=== PATIENT | male | born 1960 | race Caucasian/White ===

== ENCOUNTER → 2018-01-29 14:15 | Outpatient (CLI) | payer OTHER, SELFPAY ==
[2018-01-29 15:52] LABS: Anion Gap 5 (5-15); BUN 16 mg/dL (7-18); BUN/Creat Ratio 13.8 RATIO (10-20); Calcium,Total 8.9 mg/dL (8.5-10.1); Chloride 104 mmol/L (98-107); Creatinine, Serum 1.16 mg/dL (0.70-1.30); EST Glomerular Filtration Rate 69 mL/min (>60); Est Glom Filt Rate - Afr Amer 83 mL/min (>60); Glucose 81 mg/dL (74-106); Potassium 3.9 mmol/L (3.5-5.1); Sodium Level 140 mmol/L (136-145); T4 Total, Thyroxin 6.9 ug/dL (4.5-12.1); Thyroid Stim Hormone (TSH) 1.53 uIU/mL (0.358-3.74)
== END ==
PROVIDERS: Family Provider Family Medicine; PCP Family Medicine; Visit Provider Internal Medicine Cardiovascular Disease
DX: I10 Essential (primary) hypertension (principal); I25.10 Atherosclerotic heart disease of native coronary artery without angina pectoris
CPT/HCPCS: 36415; 80048; 84436; 84443

== ENCOUNTER → 2018-07-07 14:24 | Outpatient (CLI) | payer OTHER, SELFPAY ==
[2018-07-07 13:21] VITALS: BMI 35.8
[2018-07-07 14:57] LABS: Bacteria 0 SEEN /hpf (None Seen); Mucous, Urine 0 SEEN /hpf (<or=2+); Red Blood Cells-Urine 0 SEEN /hpf (0-5); Squamous Epithelial Cells - UA 0 SEEN /hpf (0-5)
[2018-07-07 15:29] LABS: Color, Urine Yellow (Yellow); Glucose, Dipstick Normal (Normal); Ketone-Dipstick Negative (Negative); Leukocyte Esterase-Dipstick Negative /ul (Negative); Nitrite-Dipstick Negative (Negative); Occult Blood-Urine Negative /ul (Negative); Protein-Dipstick Negative (Negative); Urine Bilirubin Dipstick Negative (Negative); Urine Clarity Clear (Clear); Urine Urobilinogen Normal (Normal)
[2018-07-07 16:13] LABS: White Blood Cells 0-5 SEEN /hpf (0-5)
== END ==
PROVIDERS: Family Provider Family Medicine; PCP Family Medicine; Referring Provider Physician Assistant Surgical; Visit Provider Physician Assistant Surgical
DX: R10.9 Unspecified abdominal pain (principal)
CPT/HCPCS: 81001; 87086; 87088

== ENCOUNTER → 2018-07-13 14:13 | Outpatient (CLI) | payer OTHER, SELFPAY ==
[2018-07-13 10:37] VITALS: BMI 35.8
[2018-07-13 14:32] LABS: Bacteria 0 SEEN /hpf (None Seen); Mucous, Urine 0 SEEN /hpf (<or=2+); Squamous Epithelial Cells - UA 0 SEEN /hpf (0-5); White Blood Cells 0 SEEN /hpf (0-5)
[2018-07-13 14:47] LABS: Color, Urine Yellow (Yellow); Glucose, Dipstick Normal (Normal); Ketone-Dipstick Negative (Negative); Leukocyte Esterase-Dipstick Negative /ul (Negative); Nitrite-Dipstick Negative (Negative); Occult Blood-Urine Negative /ul (Negative); Protein-Dipstick Negative (Negative); Specific Gravity, Urine 1.015 (1.002-1.030); Urine Bilirubin Dipstick Negative (Negative); Urine Clarity Clear (Clear); Urine Urobilinogen Normal (Normal)
[2018-07-13 14:58] LABS: Red Blood Cells-Urine 0-5 SEEN /hpf (0-5)
[2018-07-13 16:42] LABS: Chlamydia Trachomatis by PCR Negative (Negative); Neisserai gonorrhoeae by PCR Negative (Negative); Probe Check PASS; Sample Adequacy Control PASS; Specimen Processing Control PASS
== END ==
PROVIDERS: Family Provider Family Medicine; PCP Family Medicine; Referring Provider Physician Assistant Surgical; Visit Provider Physician Assistant Surgical
DX: R30.0 Dysuria (principal)
CPT/HCPCS: 81001; 87086; 87491; 87591

== ENCOUNTER → 2018-07-17 16:54 | Outpatient (CLI) | payer OTHER, SELFPAY ==
[2018-07-13 10:37] VITALS: BMI 35.8
[2018-07-17 18:25] LABS: Hemoglobin A1c 5.5 % (4.2-6.3)
[2018-07-17 18:36] LABS: ALB/GLOB Ratio 1.1 RATIO (0.9-2.4); AST(SGOT) 21 U/L (15-37); Alanine Aminotransfer ALT/SGPT 38 U/L (16-61); Alkaline Phosphatase 68 U/L (45-117); Anion Gap 7 (5-15); BUN 17 mg/dL (7-18); BUN/Creat Ratio 14.4 RATIO (10-20); Calcium,Total 8.8 mg/dL (8.5-10.1); Chloride 103 mmol/L (98-107); Creatinine, Serum 1.18 mg/dL (0.70-1.30); EST Glomerular Filtration Rate 67 mL/min (>60); Est Glom Filt Rate - Afr Amer 81 mL/min (>60); Globulin 3.5 g/dL (2.2-4.2); Glucose 102 mg/dL (74-106); Potassium 3.8 mmol/L (3.5-5.1); Protein, Total 7.5 g/dL (6.4-8.2); Sodium Level 142 mmol/L (136-145); Uric Acid 7.6 mg/dL (3.5-7.2)
--- OUTSIDE RECORDS SUMMARY | 2018-09-21 08:03 | XMS RPT_ITS ---
:1960 Author Organization [place] Support Name Relationship Address Phone MONE WANG Unavailable [address] + [place] [address] WC Unavailable [address] + [place] [address] MONE WANG Unavailable [address] + [place] [address] WC Unavailable [address] + [place] [address] MONE WANG Unavailable [address] + [place] [address] WC Unavailable [address] + [place] [address] MONE WANG Unavailable [address] + [place] [address] WC Unavailable [address] + [place] [address] MONE WANG Unavailable [address] + [place] [address] WC Unavailable [address] + [place] [address] MONE WANG Unavailable [address] + [place] [address] WC Unavailable [address] + [place] [address] MONE WANG Unavailable [address] + [place] [address] WC Unavailable [address] + [place] [address] MONE WANG Unavailable [address] + [place] [address] [facility] Unavailable [address] + [place] [address] FELIPE MONE Unavailable [address] + [place] [address] [facility] Unavailable [address] + [place] [address] FELIPE MONE Unavailable [address] + [place] [address] [facility] Unavailable [address] + [place] [address] FELIPE MONE Unavailable NA + [place], [place] [facility] Unavailable [address] + [place] [address] FELIPE MONE [place] + [place] [facility] Unavailable [address] + [place] [address] FELIPE MONE Unavailable [place] + [place], [place] [facility] Unavailable [address] + [place] [address] FELIPE NIMESH Unavailable [address] + [place] [address] [facility] Unavailable [address] + [place] [address] FELIPE MONE Unavailable NA + [place], [place] [facility] Unavailable [address] + [place] [address] Care Team Providers Name Role Phone Vladislav Momin Attending Unavailable Guanakito Wynn Referring Unavailable Vladislav Momin Attending Unavailable Vladislav Momin Referring Unavailable Guanakito Wynn Primary Care Unavailable Vladislav Momin Attending Unavailable Guanakito Wynn Referring Unavailable Vladislav Momin Attending Unavailable Vladislav Momin Referring Unavailable TiannaGuanakito carlisle Primary Care Unavailable Guanakito Wynn Attending Unavailable Guanakito Wynn Primary Care Unavailable Jerson King Attending Unavailable Guanakito Wynn Referring Unavailable Jerson King Attending Unavailable Guanakito Wynn Referring Unavailable Guanakito Wynn Primary Care Unavailable Vladislav Momin Attending Unavailable Guanakito Wynn Referring Unavailable Tianna, Guanakito Primary Care Unavailable ASSESSMENT, HEALTH RISK Attending Unavailable ASSESSMENT, HEALTH RISK Referring Unavailable Tianna, Guanakito Primary Care Unavailable Christine, [place] Attending Unavailable KATIE BRAY Referring Unavailable Tianna, Guanakito Primary Care Unavailable Christine, [place] Attending Unavailable Christine, Jerson Referring Unavailable Tianna, Guanakito Primary Care Unavailable Vladislav Momin Attending Unavailable Tianna, Guanakito Referring Unavailable Tianna, Guanakito Primary Care Unavailable Kelvin Deluna Attending Unavailable Tianna, Guanakito Referring Unavailable Tianna, Guanakito Primary Care Unavailable Guanakito Coleman Attending Unavailable Tianna, Guanakito Referring Unavailable Kelvin Deluna Attending Unavailable Tianna, Guanakito Referring Unavailable Tianna, Guanakito Primary Care Unavailable PROBLEMS PROBLEMS DATE TYPE CONDITION / CODE ATTENDING STATUS SOURCE Unknown I10 - Essential (primary) Guanakito Wynn Active [facility] 9 hypertension / Community I10(ICD-10) Hospital Repository Unknown M10.9 - Gout, unspecified Guanakito Wynn Active [place] 9 / M10.9(ICD-10) [facility] Repository Unknown E87.6 - Hypokalemia / Guanakito Wynn Active [place] 9 E87.6(ICD-10) [facility] Repository Unknown R73.01 - Impaired fasting Guanakito Wynn Active [place] 9 glucose / R73.01(ICD-10) [facility] Repository Unknown R30.0 - Dysuria / Vladislav Momin Active [place] 9 R30.0(ICD-10) [facility] Repository Unknown 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, unspecified / Community B36.9(ICD-10) Hospital Repository Unknown R10.9 - Unspecified Merrill Vladislav Active [place] 9 abdominal pain / Community R10.9(ICD-10) Hospital Repository Unknown I25.10 - Atherosclerotic Christine, [place] Active [place] 8 heart disease of eyak Community coronary artery without Hospital angina pectoris / Repository I25.10(ICD-10) Unknown E78.00 - Pure Christine, [place] Active [place] 8 hypercholesterolemia, Community unspecified / Hospital E78.00(ICD-10) Repository 08/02/201 Unknown E78.0 - Pure Christine, [place] Active [place] 8 hypercholesterolemia / Community E78.0(ICD-10) Hospital Repository PROCEDURES PROCEDURES No Procedure Records FoundRESULTS RESULTS HEMOGLOBIN A1C Collected: 07/17/2018 Status: F Source: [place] 4:56 PM [facility] [place], [place] REPOSITORY TYPE CODE TESTS RESULT OUT OF RANGE REFERENCE UNITS LAB L501.9985 4.2-6.3 % Normal HGB A1C 5.5 Performed By: #### L501.9985 #### [facility] [address] [place], [address] COMPREHENSIVE METABOLIC Collected: 07/17/2018 Status: F Source: [place]IL 4:56 PM [facility] [place] [place] REPOSITORY TYPE CODE TESTS RESULT OUT OF RANGE REFERENCE UNITS LAB L501.0100 74-106 mg/dL Normal GLU 102 Result Comment: Fasting Glucose result from 100 to 125 mg/dL suggests IMPAIRED HOMEOSTASIS per A.D.A. criteria. Please note revised GLUCOSE reference range effective 2017. LAB L501.1000 7-18 mg/dL Normal BUN 17 LAB L501.1100 0.70-1.30 mg/dL Normal CREAT,SERUM 1.18 Result Comment: The validity of the calculated GFR AND GFRAA in patients over 70 years has not been determined. Clinical correlation is essential. LAB L501.1110 >60 mL/min Normal EST GFR 67 Result Comment: Non- GFR Calc LAB L501.1115 >60 mL/min Normal EST GFR - AA 81 Result Comment: GFR Calc LAB L501.1300 10-20 RATIO Normal BUN/CRE 14.4 LAB L501.1500 6.4-8.2 g/dL T Normal PROT 7.5 LAB L501.1800 3.2-5.0 g/dL Normal ALB 4.0 LAB L501.1950 2.2-4.2 g/dL Normal GLOB 3.5 LAB L501.2000 0.9-2.4 RATIO Normal A/G 1.1 LAB L501.2200 8.5-10.1 mg/dL CA Normal 8.8 LAB L501.4100 15-37 U/L Normal AST 21 LAB L501.4305 45-117 U/L Normal ALK P 68 LAB L501.4405 16-61 U/L Normal ALT 38 LAB L501.4600 0.20-1.00 mg/dL T Normal BILI 0.40 LAB L501.5300 136-145 mmol/L NA Normal 142 LAB L501.5600 3.5-5.1 mmol/L K Normal 3.8 LAB L501.5900 98-107 mmol/L CL Normal 103 LAB L501.6100 21.0-32.0 mmol/L Normal CO2 32.0 LAB L501.6200 5-15 Normal GAP 7 Performed By: #### L500.4050, L501.1400 #### [facility] [address] [place], [address] URIC ACID Collected: 07/17/2018 Status: F Source: [place] 4:56 PM [facility] [place] [place] REPOSITORY TYPE CODE TESTS RESULT OUT OF RANGE REFERENCE UNITS LAB L501.1400 3.5-7.2 mg/dL High URIC 7.6 Result Comment: The drugs N-Acetylcysteine and Metamizole may falsely depress this assay. Performed By: #### L500.4050, L501.1400 #### [facility] [address] [place], [address] URINALYSIS, COMPLETE Collected: 07/13/2018 Status: F Source: [place] 2:31 PM [facility] [place] [place] REPOSITORY Order Comment: How was Urine Obtained? CLEAN CATCH TYPE CODE TESTS RESULT OUT OF RANGE REFERENCE UNITS LAB L400.3000 Yellow COLOR Normal Yellow LAB L400.3050 Clear Normal CLARITY Clear LAB L400.3200 Normal mg/dl Normal GLUCOSE, UR Normal LAB L400.3300 Negative mg/dL Normal BILIRUBIN URINE Negative LAB L400.3400 Negative mg/dl Normal KETONE UR Negative LAB L400.3465 1.002-1.030 Normal SP.GR. DIPSTX 1.015 LAB L400.3550 5.0 - 8.0 pH UR Normal 6.0 LAB L400.3600 Negative mg/dl PROT Normal DIPSTX Negative LAB L400.3700 Normal mg/dl Normal UROBILI Normal LAB L400.3750 Negative Normal NITRITE UR Negative LAB L400.3780 Negative /ul Normal OCCULT BLOOD-UR Negative LAB L400.3800 Negative /ul LEUK Normal ESTERASE Negative LAB L400.4050 0-5 /hpf WBC 0 Normal SEEN LAB L400.4100 0-5 /hpf Normal RBC-UA 0-5 SEEN LAB L400.4150 0-5 /hpf SQUAM 0 Normal EPI SEEN LAB L400.4300 None Seen /hpf 0 Normal BACTERIA SEEN LAB L400.4350 <or=2+ /hpf 0 Normal MUCUS, URINE SEEN Performed By: #### L400.0001 #### [facility] [address] [place], [address] CT/NG [facility] BY PCR Collected: 07/13/2018 Status: F Source: [place] 2:31 PM [facility] [place] [place] REPOSITORY TYPE CODE TESTS RESULT OUT OF RANGE REFERENCE UNITS LAB L8200.2100 Negative Normal Chlam Negative Trac PCR LAB L8200.2200 Negative Normal NG by Negative PCR Performed By: #### L8200.2000 #### [facility] [address] [place], [address] Observed: 07/13/2018 Status: F Source: [place] CULTURE, URINE 2:31 PM [facility] [place] [place] REPOSITORY CTNG URINE Urine Culture Culture exhibits no growth. Performed By: #### M100.0650 #### [facility] [address] [place], [address] URGENT CARE VISIT Observed: 07/13/2018 Status: F Source: [place] REPORT 12:12 PM [facility] [place] [place] REPOSITORY [facility] [address] [place] [address] [address] [place] [address] OFFICE VISIT Date of Service: 07/13/18 MR#: [id number] Acct: [id number] Name: SUDHA WANG Rep #: [id number] : 1960 Provider: Vladislav MEYER Age/Sex: 58/M Location: [facility] [place] Status: Signed Intake Vital Signs07/13/18 Body Mass Index (BMI) 35.8 07/13/18 Height 6 ft 5 in Intake Visit Reasons: Urinary tract infection Allergies Penicillins Allergy (Verified 07/13/18 10:37) Other Medications Citalopram [Celexa] 40 mg PO DAILY 08/11/15 [History Confirmed 07/13/18] Pantoprazole Sodium [Protonix] 40 mg PO BID 08/11/15 [History Confirmed 07/13/18] lorazepam 1 mg tablet 1 mg PO TID PRN 07/31/17 [History Confirmed 07/13/18] pravastatin 40 mg tablet 40 mg PO QHS 07/31/17 [History Confirmed 07/13/18] aspirin 325 mg tablet 325 mg PO QDAY 01/29/18 [History Confirmed 07/13/18] lisinopril 20 mg-hydrochlorothiazide 25 mg tablet 1 tab PO QDAY 01/29/18 [History Confirmed 07/13/18] potassium chloride ER 10 mEq tablet,extended release 10 meq PO QDAY #90 tab 01/29/18 [Rx Confirmed 07/13/18] clotrimazole-betamethasone 1 %-0.05 % topical cream 1 applic TOPICAL BID 14 Days #15 g 07/13/18 [Rx Confirmed 07/13/18] [facility] Medical History BMI 35.0-35.9,adult (Chronic) Hyperlipemia (Chronic) Hyperlipidemia (Chronic) Hypertension (Chronic) 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 Patient was evaluated here approximately 1 week ago with similar type symptoms and started on nystatin powder for a fungal infection however he states that this has not helped with his symptoms of pain and actually states that the powder caused pain when applied to the foreskin. He denies any hematuria, increased urinary frequency or urgency. He has had no fever, chills, sweats. No nausea, vomiting, diarrhea. No other associated symptoms or alleviating/aggravating factors. ROS Const Constitutional: No body ache, chills or fever(s) Resp Respiratory: No shortness of breath Cardio Cardiology: No lightheadedness, palpitations or irregular heart rhythm Gastro GI: No abdominal pain Genitourinary Male: Positive for burning urination and painful urination; no difficulty urinating, urinary incontinence, urinary hesitancy, urinary retention, blood in urine, urinary frequency, genital itching or penile discharge Neuro Neurology: No confusion or behavioral changes Psych Psychiatric: No confusion, No behavioral changes Exam Const General: cooperative, healthy appearing Resp Effort AND Inspection: normal respiratory effort Auscultation: Bilateral: Clear to Auscultation Cardio Rate: regular rate Rhythm: regular rhythm GI Auscultation: normal bowel sounds General: No CVA tenderness, bimanual renal exam normal bilaterally Penis: erythematous (minimal erythema of the foreskin with no drainage or white smegma) Meatus: meatus normal Scrotum: scrotum normal Testes: normal Other: No erythema or drainage from the tip of the penis. Psych Appearance: grossly normal Mental Status: mental status grossly normal Results [facility] Office Urine Color YELLOW Last Edit by Latha Trejo on 07/13/18 10:47 Office Urine Clarity Clear Last Edit by Latha Trejo on 07/13/18 10:47 Assessment AND Plan 1. Fungal dermatitis B36.9 Plan Lotrisone cream as prescribed today. Patient advised to apply Lotrisone cream twice daily only after cleaning and drying the area well. Patient advised to follow-up with his PCP and dermatology particularly if his symptoms do not improve in 7-10 days or sooner should they worsen. Patient has been advised of potential red flags and when appropriate to report to the ED. Patient verbalized understanding and agreement with all the above. Medications New: Discontinued: nystatin Discontinued Reason: Pt no longer 1 applic Topical TID 14 days 30 grams 0RF taking Plan Detail Other Orders Orders: Coding Level of Care Code Off vis,est,level 3 Diagnoses Fungal dermatitis B36.9 07/13/18 1212 <Electronically signed by Vladislav MEYER> Date Vladislav MEYER Cosigner Signature: Date (if applicable) CC: URGENT CARE VISIT Observed: 07/07/2018 Status: F Source: [place] REPORT 3:09 PM [facility] [place] [place] REPOSITORY [facility] [address] [place] [address] [address] [place] [address] OFFICE VISIT Date of Service: 07/07/18 MR#: [id number] Acct: [id number] Name: SUDHA WANG Rep #: [id number] : 1960 Provider: Vladislav MEYER Age/Sex: 58/M Location: [facility] [place] Status: Signed Intake Vital Signs07/07/18 Body Mass Index (BMI) 35.8 Intake Visit Reasons: KIDNEY INFECTION Chief Complaint: SIDE PAIN Clinical Educator Required: Yes Accompanied by: SELF Is patient in pain?: No Allergies Penicillins Allergy (Verified 07/07/18 13:20) Other Medications Citalopram [Celexa] 40 mg PO DAILY 08/11/15 [History Confirmed 07/07/18] Pantoprazole Sodium [Protonix] 40 mg PO BID 08/11/15 [History Confirmed 07/07/18] lorazepam 1 mg tablet 1 mg PO TID PRN 07/31/17 [History Confirmed 07/07/18] pravastatin 40 mg tablet 40 mg PO QHS 07/31/17 [History Confirmed 07/07/18] aspirin 325 mg tablet 325 mg PO QDAY 01/29/18 [History Confirmed 07/07/18] lisinopril 20 mg-hydrochlorothiazide 25 mg tablet 1 tab PO QDAY 01/29/18 [History Confirmed 07/07/18] potassium chloride ER 10 mEq tablet,extended release 10 meq PO QDAY #90 tab 01/29/18 [Rx Confirmed 07/07/18] nystatin 100,000 unit/gram topical powder 1 applic TOPICAL TID 14 Days #30 g 07/07/18 [Rx Confirmed 07/07/18] [facility] Medical History BMI 35.0-35.9,adult (Chronic) Hyperlipemia (Chronic) Hyperlipidemia (Chronic) Hypertension (Chronic) 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 Patient states that approximate 1 week ago he started to have penile discomfort and burning when he urinated. He was seen by a telemedicine provider and started on fluconazole 100 mg daily for 2 weeks however he discontinued taking this medication due to making him feel ill. Patient states that the redness and irritation to the penis has since resolved however over the past several days he has had a return of the dysuria. He does report being uncircumcised and was on vacation for a week without showering. He has not had any increased urinary urgency or frequency and has not taken any new medications other than fluconazole. He denies any genital itching or penile discharge. He reports being in a monogamous relationship. He denies fever, chills, sweats. No nausea, vomiting, diarrhea. No other associated symptoms or alleviating/aggravating factors. ROS Const Constitutional: No body ache, chills or fever(s) Resp Respiratory: No shortness of breath Cardio Cardiology: No lightheadedness, palpitations or irregular heart rhythm Gastro GI: No abdominal pain Genitourinary Male: Positive for burning urination and painful urination; no difficulty urinating, urinary incontinence, urinary hesitancy, urinary retention, blood in urine, urinary frequency, genital itching or penile discharge Neuro Neurology: No confusion or behavioral changes Psych Psychiatric: No confusion, No behavioral changes Exam Const General: cooperative, healthy appearing Resp Effort AND Inspection: normal respiratory effort Auscultation: Bilateral: Clear to Auscultation Cardio Rate: regular rate Rhythm: regular rhythm GI Auscultation: normal bowel sounds General: No CVA tenderness, bimanual renal exam normal bilaterally External: normal external exam Psych Appearance: grossly normal Mental Status: mental status grossly normal Results [facility] Office Urine Color Yellow Last Edit by Aletha Herr on 07/07/18 13:25 Assessment AND Plan Problems 1. Fungal dermatitis B36.9 Status Acute Plan UA today shows no signs of acute UTI or kidney issues and with patient's described improvement with fluconazole prior to him discontinuing we will start him today on nystatin powder. The urine sample will be sent for further evaluation including GC and chlamydia. Encouraged to get plenty of rest, drink lots of clear liquids, and use Tylenol or Ibuprofen (unless contraindicated) for fever and comfort. Patient also educated on other symptomatic management techniques. To be seen in 7-10 days if no improvement; sooner if worsening of symptoms. Patient advised of potential red flags and when appropriate to report to the ED. Patient verbalized understanding and agreement with all the above. Orders Orders: Medications New: Discontinued: atenolol Discontinued Reason: Pt no lo50 mg PO QDAY nger taking azithromycin Discontinued Reason: Pt ntake 500 mg today (day 1), then 250 mg forJ01.90 o longer taking 4 days (days 2- 5) PO 6 tabs 0RF Coding Level of Care Code Off vis,est,level 3 Diagnoses Fungal dermatitis B36.9 07/07/18 1509 <Electronically signed by Vladislav MEYER> Date Vladislav MEYER Cosigner Signature: Date (if applicable) CC: URINALYSIS, COMPLETE Collected: 07/07/2018 Status: F Source: [place] 2:55 PM [facility] [place] [place] REPOSITORY Order Comment: How was Urine Obtained? CLEAN CATCH TYPE CODE TESTS RESULT OUT OF RANGE REFERENCE UNITS LAB L400.3000 Yellow COLOR Normal Yellow LAB L400.3050 Clear Normal CLARITY Clear LAB L400.3200 Normal mg/dl Normal GLUCOSE, UR Normal LAB L400.3300 Negative mg/dL Normal BILIRUBIN URINE Negative LAB L400.3400 Negative mg/dl Normal KETONE UR Negative LAB L400.3465 1.002-1.030 Normal SP.GR. DIPSTX 1.010 LAB L400.3550 5.0 - 8.0 pH UR Normal 6.0 LAB L400.3600 Negative mg/dl PROT Normal DIPSTX Negative LAB L400.3700 Normal mg/dl Normal UROBILI Normal LAB L400.3750 Negative Normal NITRITE UR Negative LAB L400.3780 Negative /ul Normal OCCULT BLOOD-UR Negative LAB L400.3800 Negative /ul LEUK Normal ESTERASE Negative LAB L400.4050 0-5 /hpf WBC Normal 0-5 SEEN LAB L400.4100 0-5 /hpf 0 Normal RBC-UA SEEN LAB L400.4150 0-5 /hpf SQUAM 0 Normal EPI SEEN LAB L400.4300 None Seen /hpf 0 Normal BACTERIA SEEN LAB L400.4350 <or=2+ /hpf 0 Normal MUCUS, URINE SEEN Performed By: #### L400.0001 #### [facility] [address] [place], [place], [address] Observed: 07/07/2018 Status: F Source: [place] CULTURE, URINE 2:55 PM [facility] [place] [place] REPOSITORY Urine Culture Below infection level. ORGANISM 1: Mixed Gram Positive Organisms [place] Count <1000 Performed By: #### M100.0650 #### [facility] [address] [place], [place], [address] URGENT CARE VISIT Observed: 03/25/2018 Status: F Source: [place] REPORT 10:33 AM [facility] [place] [place] REPOSITORY [facility] [address] [place] [address] [address] [place] [address] OFFICE VISIT Date of Service: 03/19/18 MR#: [id number] Acct: [id number] Name: LOBO WANGN Bong Rep #: [id number] : 1960 Provider: Kelvin MEYER Age/Sex: 58/M Location: [facility] [place] Status: Signed with Addenda ADDENDUM by Kelvin MEYER on 03/25/18 at 1033 Addendum entered and electronically signed by MITCH Malone 03/25/18 10:33: discussed pt's symptoms over the phone at his request; symptoms have stabilized but persist, therefore Valacyclovir extended and gabapentin started (called in to [facility]) and reminded pt he needs to f/u w/ opthal. as he not yet made an appointment. Pt states acknowledging understanding al the above. HPI Details: SUDHA WANG, is a 58 M who presents to the office today for Assessment AND Plan Problems 1. Cellulitis of nasal tip J34.0 2. Shingles B02.9 Plan - MITCH Malone Due to patient concerns, discontinue doxycycline and start clindamycin as prescribed today. Valacyclovir and prednisone as prescribed today. Recommend follow-up with ophthalmology for first available due to left eye discomfort. Recommend follow-up with PCP in 5-7 days for reevaluation and consideration of additional medication for pain control if still present at that time. Patient states acknowledging understanding all the above. This note was generated with [employer] software. It may contain incorrect words, spelling, and punctuation that were not noted in checking the note before signing. 03/25/18 1033 <Electronically signed by Kelvin MEYER> Date Kelvin Deluna cc: * Signed Intake Vital Signs03/19/18 Height 6 ft 5 in 03/19/18 Weight: 285 lb 03/19/18 Body Mass Index (BMI) 33.7 03/19/18 Blood Pressure 126/82 Intake Visit Reasons: RECHECK NOSE Chief Complaint: Nasal cellulitis recheck Clinical Educator Required: No Accompanied by: self Is patient in pain?: Yes Allergies Penicillins Allergy (Verified 03/19/18 10:45) Other Medications Citalopram [Celexa] 40 mg PO DAILY 08/11/15 [History Confirmed 03/19/18] Pantoprazole Sodium [Protonix] 40 mg PO BID 08/11/15 [History Confirmed 03/19/18] lorazepam 1 mg tablet 1 mg PO TID PRN 07/31/17 [History Confirmed 03/19/18] pravastatin 40 mg tablet 40 mg PO QHS 07/31/17 [History Confirmed 03/19/18] aspirin 325 mg tablet 325 mg PO QDAY 01/29/18 [History Confirmed 03/19/18] atenolol 50 mg tablet 50 mg PO QDAY 01/29/18 [History Confirmed 03/19/18] lisinopril 20 mg-hydrochlorothiazide 25 mg tablet 1 tab PO QDAY 01/29/18 [History Confirmed 03/19/18] potassium chloride ER 10 mEq tablet,extended release 10 meq PO QDAY #90 tab 01/29/18 [Rx Confirmed 03/19/18] azithromycin 250 mg tablet See Label Instructions PO .COMPLEX #6 tab 02/27/18 [Rx Confirmed 03/19/18] doxycycline monohydrate 100 mg capsule 100 mg PO BID #20 cap 03/16/18 [Rx Confirmed 03/19/18] clindamycin HCl 300 mg capsule 300 mg PO TID #30 cap 03/19/18 [Rx Confirmed 03/19/18] prednisone 50 mg tablet 50 mg PO DAILY #5 tab 03/19/18 [Rx Confirmed 03/19/18] valacyclovir 500 mg tablet 500 mg PO BID #14 tab 03/19/18 [Rx Confirmed 03/19/18] [facility] Medical History BMI 35.0-35.9,adult (Chronic) Hyperlipemia (Chronic) Hyperlipidemia (Chronic) Hypertension (Chronic) Atherosclerotic heart disease of [place] coronary artery without angina pectoris (Chronic) Obstructive sleep apnea (Chronic) Surgical History History of left heart catheterization (Chronic) Stented coronary artery (Chronic) Family History Mother CAD (coronary artery disease) Sister CAD (coronary artery disease) Brother Hypertension Sister Hypertension Social History Smoking Status: Never smoker alcohol intake: never caffeine: Yes Type: carbonated beverages HPI HPI Chief Complaint: Nasal cellulitis recheck Details: SUDHA WANG, is a 58 M who presents to the office today for recheck nasal cellulitis. Patient notes progressively worsening rash having developed to his left scalp left forehead and left side of the nasal bridge since his evaluation at the [facility] on March 16, 2018. He also notes left sided scalp headache and mild aching left eye discomfort. He notes no visual acuity changes. Patient is concerned he may have an allergic reaction to the doxycycline as prescribed. He does note having chickenpox as a child. He does not complaints of fever, chills, sweats. He Notes No Other Associated Symptoms and No Other Alleviating or Aggravating Factors. ROS Const Constitutional: No other (ROS negative 10 other than as noted above) Exam Const General: cooperative, healthy appearing, no acute distress Nutritional Appearance: average body habitus Orientation: alert, awake, oriented x3 HENMT Head: normal to inspection Ears: hearing grossly normal bilaterally, external ears normal, TM's normal bilaterally, EAC's normal Nose: external nose normal, nares normal, septum normal, no nasal discharge Face and sinus: normal facial exam, face symmetric Mouth: oral mucosae normal, lip normal, oropharynx normal, tongue normal Teeth and gingiva: gingiva normal, dentition normal Throat: posterior oropharynx normal, uvula midline, tonsils normal, no postnasal drainage Eyes General: appearance normal, both eyes and all related structures Neck Neck: normal visual inspection, full ROM, no lymphadenopathy, no meningeal signs, supple Neck mass: No Thyroid: thyroid normal Lymphatic: no lymphadenopathy noted Chest Chest palpation AND inspection: normal inspection of the chest Resp Effort AND Inspection: normal respiratory effort, able to speak in complete sentences, symmetric chest movement, no cough Cardio Rate: regular rate Pulses: radial pulses present GI Inspection: normal to inspection Skin Lesions: lesion noted (erythematous based pinpoint open lesion at tip of nose 1cm diameter), other (See other below) Rashes: rashes noted (Fine erythematous base scaling rash to chin; patient notes as chronic) Other: Erythematous based vesicular rash in clustered formations to left temporal scalp left forehead and left side of nasal bridge. Neuro General: alert, awake, oriented x3, gait normal Cognition: normal cognition Speech: speech normal Gait: normal gait Motor: muscle tone normal throughout Sensory Exam: no sensory deficits noted Psych Appearance: grossly normal Mental Status: mental status grossly normal Mood: congruent mood Affect: normal affect Speech and Movement: speech and movement normal Attitude: cooperative Thought Process: normal Thought Content: normal Judgment: judgment good Assessment AND Plan Problems 1. Cellulitis of nasal tip J34.0 2. Shingles B02.9 Plan Due to patient concerns, discontinue doxycycline and start clindamycin as prescribed today. Valacyclovir and prednisone as prescribed today. Recommend follow-up with ophthalmology for first available due to left eye discomfort. Recommend follow-up with PCP in 5-7 days for reevaluation and consideration of additional medication for pain control if still present at that time. Patient states acknowledging understanding all the above. This note was generated with UpDown dictation software. It may contain incorrect words, spelling, and punctuation that were not noted in checking the note before signing. Coding Level of Care Code Off vis,est,level 3 Diagnoses Cellulitis of nasal tip J34.0 [place]ingld[place] B02.9 03/19/18 1230 <Electronically signed by Kelvin MEYER> Date Kelvin MEYER Cosigner Signature: Date (if applicable) CC: URGENT CARE VISIT Observed: 03/18/2018 Status: F Source: KAYLI REPORT 1:43 PM [facility] [place] [place] REPOSITORY [facility] [address] [place] [address] OFFICE VISIT Date of Service: 03/18/18 MR#: [id number] Acct: [id number] Name: FELIPESUDHA G Rep #: [id number] : 1960 Provider: MITCH Coleman Age/Sex: 58/M Location: [facility] [place] Status: Signed Intake Vital Signs03/18/18 Body Mass Index (BMI) 33.7 03/18/18 Blood Pressure 134/84 03/18/18 Height 6 ft 5 in Intake Visit Reasons: Cellulitis Chief Complaint: Nasal cellulitis recheck Allergies Penicillins Allergy (Verified 03/18/18 12:53) Other Medications Citalopram [Celexa] 40 mg PO DAILY 08/11/15 [History Confirmed 03/18/18] Pantoprazole Sodium [Protonix] 40 mg PO BID 08/11/15 [History Confirmed 03/18/18] lorazepam 1 mg tablet 1 mg PO TID PRN 07/31/17 [History Confirmed 03/18/18] pravastatin 40 mg tablet 40 mg PO QHS 07/31/17 [History Confirmed 03/18/18] aspirin 325 mg tablet 325 mg PO QDAY 01/29/18 [History Confirmed 03/18/18] atenolol 50 mg tablet 50 mg PO QDAY 01/29/18 [History Confirmed 03/18/18] lisinopril 20 mg-hydrochlorothiazide 25 mg tablet 1 tab PO QDAY 01/29/18 [History Confirmed 03/18/18] potassium chloride ER 10 mEq tablet,extended release 10 meq PO QDAY #90 tab 01/29/18 [Rx Confirmed 03/18/18] azithromycin 250 mg tablet See Label Instructions PO .COMPLEX #6 tab 02/27/18 [Rx Confirmed 03/18/18] doxycycline monohydrate 100 mg capsule 100 mg PO BID #20 cap 03/16/18 [Rx Confirmed 03/18/18] [facility] Medical History BMI 35.0-35.9,adult (Chronic) Hyperlipemia (Chronic) Hyperlipidemia (Chronic) Hypertension (Chronic) Atherosclerotic heart disease of [place] coronary artery without angina pectoris (Chronic) Obstructive sleep apnea (Chronic) Surgical History History of left heart catheterization (Chronic) Stented coronary artery (Chronic) Family History Mother CAD (coronary artery disease) Sister CAD (coronary artery disease) Brother Hypertension Sister Hypertension Social History Smoking Status: Never smoker alcohol intake: never caffeine: Yes Type: carbonated beverages HPI HPI Chief Complaint: Nasal cellulitis recheck Details: SUDHA WANG, is a 58 M who presents to the office today for a recheck of his nasal cellulitis. The patient is on day 3 of 10 of doxycycline. He is taking the medicine as prescribed. He states the erythema is resolving, but his nose remains painful. He complains of some itching on the face as well since beginning the doxycycline. He reports one episode of fever and chills since, after beginning the doxycycline, which has since resolved. ROS Const Constitutional: No chills or fever(s) Eyes Eyes: No change in vision ENT ENT: No ear pain, sore throat, nasal congestion or nasal discharge Resp Respiratory: No cough, chest congestion, shortness of breath or wheezing Cardio Cardiology: No chest pain at rest or chest pain with exertion Gastro GI: No abdominal pain, diarrhea, vomiting or nausea/dyspepsia Genitourinary Male: No urinary frequency, urinary urgency or difficulty urinating Musc Musculoskeletal: No back pain or abnormal walking Skin Skin: Positive for itching and redness (Improved since beginning the antibiotic) Neuro Neurology: No confusion, abnormal walking or abnormal speech Psych Psychiatric: No confusion Aller/Imm Allergy/Immunologic: Positive for itchy eyes; no wheezing Exam Const General: healthy appearing, no acute distress Orientation: oriented x3, oriented to person, oriented to place, oriented to time [facility] Head: normocephalic Ears: external ears normal, TM's normal bilaterally, EAC's normal Eyes General: appearance normal, both eyes and all related structures Conjunctivae: conjunctivae normal Sclera: sclerae normal Pupils: PERRL Neck Neck: no lymphadenopathy Thyroid: thyroid normal Chest Chest palpation AND inspection: normal inspection of the chest Resp Effort AND Inspection: normal respiratory effort, no cough, no respiratory distress Auscultation: Bilateral: Clear to Auscultation Cardio Rate: regular rate Rhythm: regular rhythm GI Inspection: normal to inspection Auscultation: normal bowel sounds Palpation: no hepatosplenomegaly, no splenomegaly, no masses Skin General: no pallor Rashes: no rashes Nails: no clubbing Other: Scabbed punctum of the nasal cartilage with mild surrounding erythema. There is no drainage or swelling. Patient has several small blotches on the left nasal bone and left forehead. Neuro General: oriented x3, gait normal Extrem General: normal to inspection, no pedal edema, no calf tenderness, normal gait, no edema, no cyanosis, no clubbing, no calf tenderness bilaterally, no pedal edema Psych Mood: congruent mood Affect: normal affect Speech and Movement: speech and movement normal Assessment AND Plan 1. Cellulitis of nasal tip J34.0 Plan The patient was instructed to continue and complete the doxycycline as prescribed. He was reassured that his cellulitis appears to be resolving, and in the next several days he should notice market improvement. He was instructed that he can return to the clinic any time and/or follow-up with his primary care physician if needed. Coding Level of Care Code Off vis,est,level 3 Diagnoses Cellulitis of nasal tip J34.0 03/18/18 1343 <Electronically signed by Guanakito MEYER> Date Guanakito MEYER Cosigner Signature: Date (if applicable) CC: URGENT CARE VISIT Observed: 03/16/2018 Status: F Source: KAYLI REPORT 1:35 PM [facility] [place] [place] REPOSITORY [facility] [address] [place] [address] OFFICE VISIT Date of Service: 03/16/18 MR#: [id number] Acct: [id number] Name: SUDHA WANG Rep #: [id number] : 1960 Provider: Kelvin MEYER Age/Sex: 58/M Location: [facility] [place] Status: Signed Intake Vital Signs03/16/18 Height 6 ft 5 in Intake Visit Reasons: NAUSEA, TIRED, HEAD HURTS Chief Complaint: Infection on nose? Allergies Penicillins Allergy (Verified 03/16/18 09:16) Other Medications Citalopram [Celexa] 40 mg PO DAILY 08/11/15 [History Confirmed 03/16/18] Pantoprazole Sodium [Protonix] 40 mg PO BID 08/11/15 [History Confirmed 03/16/18] lorazepam 1 mg tablet 1 mg PO TID PRN 07/31/17 [History Confirmed 03/16/18] pravastatin 40 mg tablet 40 mg PO QHS 07/31/17 [History Confirmed 03/16/18] aspirin 325 mg tablet 325 mg PO QDAY 01/29/18 [History Confirmed 03/16/18] atenolol 50 mg tablet 50 mg PO QDAY 01/29/18 [History Confirmed 03/16/18] lisinopril 20 mg-hydrochlorothiazide 25 mg tablet 1 tab PO QDAY 01/29/18 [History Confirmed 03/16/18] potassium chloride ER 10 mEq tablet,extended release 10 meq PO QDAY #90 tab 01/29/18 [Rx Confirmed 03/16/18] azithromycin 250 mg tablet See Label Instructions PO .COMPLEX #6 tab 02/27/18 [Rx Confirmed 03/16/18] doxycycline monohydrate 100 mg capsule 100 mg PO BID #20 cap 03/16/18 [Rx Confirmed 03/16/18] [facility] Medical History BMI 35.0-35.9,adult (Chronic) Hyperlipemia (Chronic) Hyperlipidemia (Chronic) Hypertension (Chronic) Atherosclerotic heart disease of [place] coronary artery without angina pectoris (Chronic) Obstructive sleep apnea (Chronic) Surgical History History of left heart catheterization (Chronic) Stented coronary artery (Chronic) Family History Mother CAD (coronary artery disease) Sister CAD (coronary artery disease) Brother Hypertension Sister Hypertension Social History Smoking Status: Never smoker alcohol intake: never caffeine: Yes Type: carbonated beverages HPI HPI Chief Complaint: Infection on nose? Details: SUDHA WANG, is a 58 M who presents to the office today for initial evaluation approximately 3 day history of progressively worsening erythema, swelling, tenderness to tip of the nose after manually opening a white comedone to the same region the patient so describes. He notes since then the pain has progressively worsened with localized warmth and tenderness the same. He also notes having an irritated left eye without any complaints of discharge or drainage or visual acuity changes. No [id number] products tried to assist with symptomatic relief. He notes no other associated symptoms no other alleviating or aggravating factors. ROS Const Constitutional: No other (ROS negative 10 other than as noted above) Exam Const General: cooperative, healthy appearing, no acute distress Nutritional Appearance: average body habitus Orientation: alert, awake, oriented x3 HENMT Head: normal to inspection Ears: hearing grossly normal bilaterally, external ears normal, TM's normal bilaterally, EAC's normal Nose: external nose not normal (Open pinpoint lesion with circumferential erythema/swelling/warmth), nares normal, septum normal, no nasal discharge Face and sinus: normal facial exam, face symmetric, sinuses nontender Mouth: oral mucosae normal, lip normal, oropharynx normal, tongue normal Teeth and gingiva: gingiva normal, dentition normal Throat: uvula midline, tonsils normal, posterior oropharynx normal, no postnasal drainage Eyes General: appearance normal, both eyes and all related structures Neck Neck: normal visual inspection, full ROM, no lymphadenopathy, no meningeal signs, supple Neck mass: No Thyroid: thyroid normal Lymphatic: no lymphadenopathy noted Chest Chest palpation AND inspection: normal inspection of the chest Resp Effort AND Inspection: normal respiratory effort, able to speak in complete sentences, symmetric chest movement Auscultation: Bilateral: Clear to Auscultation Cardio Palpation: normal PMI Rate: regular rate Rhythm: regular rhythm Heart Sounds: S1 normal, S2 normal, no gallops, no murmurs, no rubs Pulses: radial pulses present GI Inspection: normal to inspection Palpation: soft, no hepatosplenomegaly Skin General: no rashes or lesions noted (Except as noted in HEENT exam above) Neuro General: alert, awake, oriented x3, gait normal Cognition: normal cognition Speech: speech normal Gait: normal gait Motor: muscle tone normal throughout Sensory Exam: no sensory deficits noted Psych Appearance: grossly normal Mental Status: mental status grossly normal Mood: congruent mood Affect: normal affect Speech and Movement: speech and movement normal Attitude: cooperative Thought Process: normal Thought Content: normal Judgment: judgment good Assessment AND Plan Problems 1. Cellulitis of nasal tip J34.0 Plan Doxycycline as prescribed today. Twice daily wound care as instructed today. Unremarkable eye exam today therefore recommend follow-up with optometry or ophthalmology should symptoms persist or worsen. Follow-up with PCP in 3-5 days should symptoms not improve, sooner should symptoms worsen or any other concerns develop. Patient states acknowledging understanding all the above. This note was generated with UpDown dictation software. It may contain incorrect words, spelling, and punctuation that were not noted in checking the note before signing. Medications New: Coding Level of Care Code Off vis,est,level 3 Diagnoses Cellulitis of nasal tip J34.0 03/16/18 8055 <Electronically signed by Kelvin MEYER> Date Kelvin Han Signature: Date (if applicable) CC: URGENT CARE VISIT Observed: 02/27/2018 Status: F Source: KAYLI REPORT 2:51 PM [facility] [place] [place] REPOSITORY [facility] [address] [place] [address] [address] [place] [address] OFFICE VISIT Date of Service: 02/27/18 MR#: [id number] Acct: [id number] Name: SUDHA WANG Rep #: [id number] : 1960 Provider: Vladislav MEYER Age/Sex: 58/M Location: [facility] [place] Status: Signed Intake Vital Signs02/27/18 Height 6 ft 5 in Intake Visit Reasons: SINUS INFECTION Chief Complaint: Follow up Allergies Penicillins Allergy (Verified 02/27/18 10:47) Other Medications Citalopram [Celexa] 40 mg PO DAILY 08/11/15 [History Confirmed 02/27/18] Pantoprazole Sodium [Protonix] 40 mg PO BID 08/11/15 [History Confirmed 02/27/18] lorazepam 1 mg tablet 1 mg PO TID PRN 07/31/17 [History Confirmed 02/27/18] pravastatin 40 mg tablet 40 mg PO QHS 07/31/17 [History Confirmed 02/27/18] aspirin 325 mg tablet 325 mg PO QDAY 01/29/18 [History Confirmed 02/27/18] atenolol 50 mg tablet 50 mg PO QDAY 01/29/18 [History Confirmed 02/27/18] lisinopril 20 mg-hydrochlorothiazide 25 mg tablet 1 tab PO QDAY 01/29/18 [History Confirmed 02/27/18] potassium chloride ER 10 mEq tablet,extended release 10 meq PO QDAY #90 tab 01/29/18 [Rx Confirmed 02/27/18] azithromycin 250 mg tablet See Label Instructions PO .COMPLEX #6 tab 02/27/18 [Rx Confirmed 02/27/18] [facility] Medical History BMI 35.0-35.9,adult (Chronic) Hyperlipemia (Chronic) Hyperlipidemia (Chronic) Hypertension (Chronic) Atherosclerotic heart disease of [place] coronary artery without angina pectoris (Chronic) Obstructive sleep apnea (Chronic) Surgical History History of left heart catheterization (Chronic) Stented coronary artery (Chronic) Family History Mother CAD (coronary artery disease) Sister CAD (coronary artery disease) Brother Hypertension Sister Hypertension Social History Smoking Status: Never smoker alcohol intake: never caffeine: Yes Type: carbonated beverages HPI HPI Chief Complaint: Follow up Details: SUDHA WANG, is a 58 M who presents to the office today for increasing sinus pain and pressure. Patient states that he has had ongoing nasal congestion and sinus drainage for the past 5 days with increasing pressure over the past 24- 48 hours. He states he awoke this morning with a headache due to the sinuses which was only helped slightly with Tylenol. He reports sinus infections in the past with similar type symptoms. He has had no fever, chills, sweats. No nausea, vomiting, diarrhea. No other associated symptoms or alleviating/aggravating factors. ROS Const Constitutional: Positive for headache(s); no fever(s), chills, night sweats or abnormal sleep pattern ENT ENT: Positive for headache(s), nasal congestion, sinus pressure, sinus pain and nasal discharge; no ear pain Resp Respiratory: No cough or shortness of breath Cardio Cardiology: No shortness of breath, irregular heart rhythm or fast heart rate Neuro Neurology: Positive for headache(s); no confusion Psych Psychiatric: No abnormal sleep pattern, No confusion Exam Const General: cooperative, healthy appearing [facility] Head: normal to inspection Ears: hearing grossly normal bilaterally, TM's normal bilaterally, EAC's normal Nose: nasal discharge purulent Face and sinus: sinus tenderness frontal and maxillary Mouth: oral mucosae normal Throat: abnormal tonsil bilaterally, postnasal drainage Resp Effort AND Inspection: normal respiratory effort Auscultation: Bilateral: Clear to Auscultation Cardio Palpation: normal PMI Rate: regular rate Rhythm: regular rhythm Neuro General: alert, CN's II-XI intact bilaterally Psych Appearance: grossly normal Mental Status: mental status grossly normal Assessment AND Plan Problems 1. Acute non-recurrent maxillary sinusitis J01.00 Status Acute Plan Azithromycin as prescribed today. Encouraged to get plenty of rest, drink lots of clear liquids, and use Tylenol or Ibuprofen (unless contraindicated) for fever and comfort. Patient also educated on other symptomatic management techniques. To be seen in 7-10 days if no improvement; sooner if worsening of symptoms. Patient advised of potential red flags and when appropriate report to the ED. Patient verbalized understanding of all the above. Medications New: Coding Level of Care Code Off vis,est,level 3 Diagnoses Acute non-recurrent maxillary sinusitis J01.00 Recurrence: non-recurrent Sinusitis location: maxillary 02/27/18 1451 <Electronically signed by Vladislav MEYER> Date Vladislav MEYER Cosigner Signature: Date (if applicable) CC: BASIC METABOLIC Collected: 01/29/2018 Status: F Source: KAYLI PROFILE (BMP) 2:47 PM [facility] [place] [place] REPOSITORY TYPE CODE TESTS RESULT OUT OF RANGE REFERENCE UNITS LAB L501.0100 74-106 mg/dL Normal GLU 81 Result Comment: Please note revised GLUCOSE reference range effective 2017. LAB L501.1000 7-18 mg/dL Normal BUN 16 LAB L501.1100 0.70-1.30 mg/dL Normal CREAT,SERUM 1.16 Result Comment: The validity of the calculated GFR AND GFRAA in patients over 70 years has not been determined. Clinical correlation is essential. LAB L501.1110 >60 mL/min Normal EST GFR 69 Result Comment: Non- GFR Calc LAB L501.1115 >60 mL/min Normal EST GFR - AA 83 Result Comment: GFR Calc LAB L501.1300 10-20 RATIO Normal BUN/CRE 13.8 LAB L501.2200 8.5-10.1 mg/dL CA Normal 8.9 LAB L501.5300 136-145 mmol/L NA Normal 140 LAB L501.5600 3.5-5.1 mmol/L K Normal 3.9 LAB L501.5900 98-107 mmol/L CL Normal 104 LAB L501.6100 21.0-32.0 mmol/L Normal CO2 31.0 LAB L501.6200 5-15 Normal GAP 5 Performed By: #### L500.2500, L501.9310, L501.9520 #### [facility] [address] [place], [address] T4 TOTAL, THYROXIN Collected: 01/29/2018 Status: F Source: [place] 2:47 PM [facility] [place] [place] REPOSITORY TYPE CODE TESTS RESULT OUT OF RANGE REFERENCE UNITS LAB L501.9310 4.5-12.1 ug/dL T4 Normal THYROXIN 6.9 Performed By: #### L500.2500, L501.9310, L501.9520 #### [facility] [address] [place], [address] THYROID STIM HORMONE Collected: 01/29/2018 Status: F Source: [place] (TSH) 2:47 PM [facility] [place] [place] REPOSITORY TYPE CODE TESTS RESULT OUT OF RANGE REFERENCE UNITS LAB L501.9520 0.358-3.74 uIU/mL Normal TSH 1.53 Performed By: #### L500.2500, L501.9310, L501.9520 #### [facility] [address] [place], [address] CARDIOLOGY VISIT Observed: 01/29/2018 Status: F Source: KAYLI REPORT 1:55 PM [facility] [place] [place] REPOSITORY [facility] [address] [place] [address] OFFICE VISIT Date of Service: 01/29/18 MR#: [id number] Acct: [id number] Name: VANNESA WANGARTHUR Woody Rep #: [id number] : 1960 Provider: Jerson King MD Age/Sex: 58/M Location: [facility] [place] Status: Signed HPI HPI Chief Complaint: Follow up Details: SUDHA FELIPE, is a 58 M who presents to the office today for a follow-up visit. He is a gentleman with a history of known coronary artery disease status post angioplasty and stenting of the left anterior descending artery initially 1997 and restenting in 2007. His last catheterization which demonstrated a 90-95% stenosis in the left anterior descending artery the circumflex artery had a 40 -50% stenosis in the right coronary artery which was previously stented was widely open. He had a stress test in 2008 and most recently in 2016. During the stress test he exercised to stage III of the Parker protocol with a rate pressure product of 26,000 no clinical angina was noted at 9.3 metabolic equivalents. There was minimal functional aerobic impairment. He has been doing well since then denying any chest pain or shortness of breath or paroxysmal nocturnal dyspnea or pedal edema he has been on a reduced sugar diet and has actually lost over 10 pounds. He says that his pulse he feels is also been low but he has not had any dizziness or diaphoresis or near syncope. He has been compliant with his medication as well as the changes that you have made. Unfortunately however, he has been out of his potassium chloride for at least 3 weeks. His major issue has been some fatigue.. His physical exam today appears to be unremarkable. Intake Vital Signs01/29/18 Height 6 ft 5 in 01/29/18 Weight: 291 lb 01/29/18 Body Mass Index (BMI) 34.4 01/29/18 Blood Pressure 138/78 01/29/18 Blood Pressure Location Lt brachial 01/29/18 Blood Pressure Position Sitting Intake Visit Reasons: 6 M Clinical Educator Required: No Accompanied by: none Is patient in pain?: No Allergies Penicillins Allergy (Verified 01/29/18 13:16) Other Medications Citalopram [Celexa] 40 mg PO DAILY 08/11/15 [History Confirmed 01/29/18] Pantoprazole Sodium [Protonix] 40 mg PO BID 08/11/15 [History Confirmed 01/29/18] lorazepam 1 mg tablet 1 mg PO TID PRN 07/31/17 [History Confirmed 01/29/18] pravastatin 40 mg tablet 40 mg PO QHS 07/31/17 [History Confirmed 01/29/18] aspirin 325 mg tablet 325 mg PO QDAY 01/29/18 [History Confirmed 01/29/18] atenolol 50 mg tablet 50 mg PO QDAY 01/29/18 [History Confirmed 01/29/18] lisinopril 20 mg-hydrochlorothiazide 25 mg tablet 1 tab PO QDAY 01/29/18 [History Confirmed 01/29/18] potassium chloride ER 10 mEq capsule,extended release 10 meq PO DAILY #90 cap 01/29/18 [Rx Confirmed 01/29/18] [facility] Medical History BMI 35.0-35.9,adult (Chronic) Hyperlipemia (Chronic) Hyperlipidemia (Chronic) Hypertension (Chronic) Atherosclerotic heart disease of ey[place] coronary artery without angina pectoris (Chronic) Obstructive sleep apnea (Chronic) Surgical History History of left heart catheterization (Chronic) Stented coronary artery (Chronic) Family History Mother CAD (coronary artery disease) Sister CAD (coronary artery disease) Brother Hypertension Sister Hypertension Social History Smoking Status: Never smoker alcohol intake: never caffeine: Yes Type: carbonated beverages ROS Const Const: Negative for fatigue, weakness, night sweats, excessive sweating, frequent falls, headache(s) or daytime sleepiness Eyes Eyes: Negative for loss of peripheral vision, transient loss of vision, blind spots, double vision or blurry vision ENT ENT: Negative for headache(s), dizziness, balance problems, Nosebleed/epistaxis, tongue swelling or lip swelling Cardio Chest Pain: No Palpitations: No Edema: None Muscle aches with walking: None Resp Respiratory: Negative for SOB at rest, SOB orthopnea\SOB lying down, Cough, paroxysmal nocturnal dyspnea or SOB with activity GI GI: Negative nausea, vomiting, heartburn, black,tarry stools or bright, red blood in stools : Negative for hematuria Musc Musc: Negative for balance problems, muscle aches/ myalgia, muscle weakness or joint pain Skin Skin: Negative non-healing lesions, unusual bruising or rash Neuro Neuro: Negative for weakness, frequent falls, headache(s), double vision, dizziness, lightheadedness, orthostatic symptoms, blurry vision or lack of coordination [place] Hematologic/Lymphatic: Negative for easy bruising or easy bleeding Endo Endo: Negative for fatigue, excessive sweating, cold intolerance, heat intolerance, increased thirst/drinking or hair loss Psych Psych: Negative for anxiety or depression Allergy Allergy/Immunology: Negative for throat swelling, Negative for tongue swelling, Negative for hives, Negative for rash, Negative for lip swelling Cardiology Exam Const Appearance: cooperative, healthy appearing, well developed, well groomed and no acute distress Nutritional Appearance: well nourished and average body habitus Orientation: alert, awake and oriented x3 Head Head: normal to inspection, normocephalic and atraumatic Ears: hearing grossly normal bilaterally and external ears normal Nose: external nose normal, nasal mucous membranes and turbinates normal, nares normal, septum normal, no nasal discharge Face and Sinus: face symmetric Mouth: oral mucosae normal, tongue normal, oropharynx normal and moist mucous membranes Teeth and gingiva: dentition normal Throat: posterior oropharynx normal, tonsils normal and uvula midline Eyes General: appearance normal, both eyes and all related structures Eyelids: eyelids normal Conjunctivae: conjunctivae normal Pupils: PERRL, normal by confrontation and accommodation normal EOM: EOM intact bilaterally Neck Neck: normal visual inspection, trachea midline and no JVD JVD: +5 Carotids: normal carotid upstroke and bounding pulses Chest Chest inspection: normal inspection of the chest, symmetric chest movement and normal respiratory effort Auscultation: Bilateral: Clear to Auscultation Cardio Palpation: normal PMI Rate: regular rate Rhythm: regular rhythm Heart sounds: S1 normal, S2 normal and normal, physiologic split S2; negative rub, gallop or murmur GI GI: normal to inspection, soft, no hepatosplenomegaly and bowel sounds present Neuro General: alert, awake, oriented x3, no focal sensory deficit, gait normal and moves all extremities Skin Skin: no rashes or lesions noted Extremities Pulses: Normal: Right Femoral Pulse, Left Femoral Pulse, Right Dorsalis Pedis Pulse, Left Dorsalis Pedis Pulse, Right Posterior Tibial Pulse, Left Posterior Tibial Pulse, Right Radial Pulse, Left Radial Pulse Lower Extremity Edema: None: Bilateral Musculoskel Musculoskeletal: No joint tenderness Psych Psychological: normal affect Assessment AND Plan 1. Atherosclerosis of ey[place] coronary artery of [place] heart without angina pectoris I25.10 [facility] with PCI to RCA 1996; [facility] with PCI/stent to LAD 1997; [facility] 07/02/07 with rotoblator /brachytherapy/in-stent restenosis to LAD 07/03/07; [facility] 07/10/07 Plan He does have a history of coronary artery he is status post previous stenting his last stress test was encouraging with his weight loss at this time I would recommend that we continue to follow him closely. I do not think that there is any evidence of ischemia at this particular time. Orders Orders: 2. Essential hypertension I10 Plan His blood pressure appears to be under good control on the current medical therapy his pulse rate is slightly low but this I suspect is secondary to the atenolol however I would like to obtain a thyroid function test which may explain some of his fatigue as well as his low pulse rate. Orders Orders: 3. Pure hypercholesterolemia E78.00; E78.0 Plan He does have a history of hyperlipidemia and we will continue following this closely. 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 transplanted heart: [place] heart Essential hypertension I10 Hypertension type: essential hypertension Pure hypercholesterolemia E78.00; E78.0 Hyperlipidemia type: pure hypercholesterolemia Coding Level of Care Code Off vis,est,level 3 Diagnoses Atherosclerosis of ey[place] coronary artery of [place] heart without angina pectoris I25.10 [place] vs. transplanted heart: [place] heart Essential hypertension I10 Hypertension type: essential hypertension Pure hypercholesterolemia E78.00; E78.0 Hyperlipidemia type: pure hypercholesterolemia 01/29/18 1355 <Electronically signed by Jerson King MD> Date Jerson King MD Cosigner Signature: Date (if applicable) CC: Guanakito Wynn DO [facility], EMPLOYEE Collected: 12/11/2017 Status: F Source: KAYLI 9:41 AM [facility] [place], [place] REPOSITORY TYPE CODE TESTS RESULT OUT OF RANGE REFERENCE UNITS LAB L100.1000 4.4-11.0 K/mm3 Normal WBC 6.5 LAB L100.1200 4.6-6.2 M/mm3 Normal RBC 5.25 LAB L100.1300 13.0-16.5 g/dl Normal HGB 15.6 LAB L100.1400 40-54 % Normal HCT 43.7 LAB L100.1500 80-94 fL Normal MCV 83.2 LAB L100.1600 27.0-32.0 pg Normal MCH 29.7 LAB L100.1700 32-36 g/gl Normal MCHC 35.7 LAB L100.1810 11.6-14.6 % Normal RDW CV 12.7 LAB L100.1820 35.1-43.9 fl Normal RDW SD 38.7 LAB L100.1900 150-450 K/mm3 Normal PLT 210 LAB L100.2000 6.2-12.0 fl Normal MPV 11.6 LAB L100.2110 47-70 % Normal NEUT% 66.4 LAB L100.2210 19-41 % Normal LY% 20.2 LAB L100.2310 0-10 % Normal MONO% 9.9 LAB L100.2410 0-5 % Normal EO% 2.8 LAB L100.2510 0-1 % Normal BASO% 0.5 LAB L100.2620 2.0-7.7 X10 3/uL Normal Absolute Neut 4.3 LAB L100.2720 0.83-4.51 X10 3/ul Normal Absolute Lymph 1.31 Performed By: #### L100.0200 #### [facility] [address] [place], [place], [address] [employer], EMPLOYEE Collected: 12/11/2017 Status: F Source: [place] 9:41 AM [facility] [place], [place] REPOSITORY TYPE CODE TESTS RESULT OUT OF RANGE REFERENCE UNITS LAB L400.3000 Yellow COLOR Normal Yellow LAB L400.3050 Clear Normal CLARITY Clear LAB L400.3200 Normal mg/dl Normal GLUCOSE, UR Normal LAB L400.3300 Negative mg/dL Normal BILIRUBIN URINE Negative LAB L400.3400 Negative mg/dl Normal KETONE UR Negative LAB L400.3465 1.002-1.030 Normal SP.GR. DIPSTX 1.015 LAB L400.3550 5.0 - 8.0 pH UR Normal 6.0 LAB L400.3600 Negative mg/dl PROT Normal DIPSTX Negative LAB L400.3700 Normal mg/dl High 1 UROBILI LAB L400.3750 Negative Normal NITRITE UR Negative LAB L400.3780 Negative /ul Normal OCCULT BLOOD-UR Negative LAB L400.3800 Negative /ul LEUK Normal ESTERASE Negative Performed By: #### L400.0100 #### [facility] [address] [place], [address] NICOTINE URINE DRUG Collected: 12/11/2017 Status: F Source: [place] SCREEN 9:41 AM [facility] [place], [place] REPOSITORY TYPE CODE TESTS RESULT OUT OF RANGE REFERENCE UNITS LAB L505.6250 TO BE Normal CONFIRMED Result Comment: CONFIRMATORY TESTING FOR ALL POSITIVE URINE DRUG SCREEN RESULTS WILL ONLY BE SENT OUT UPON PHYSICIAN ORDER. The results of Urine Drug Screen methods provide only preliminary analytical test results. A more specific alternate chemical method must be used in order to obtain a confirmed analytical result. Gas chromatography/mass spectrometery (GC/MS) is the preferred confirmatory method. Clinical consideration and professional judgement should be applied to any drug of abuse test result, particularly when preliminary positive results are used. LAB L505.6270 <200 ng/mL Normal COT DRG Negative SCREEN Result Comment: Cotinine is the first-stage metabolite of Nicotine. Performed By: #### L505.6240 #### [facility] [address] [place], [place], [address] EMPLOYEE PROFILE Collected: 12/11/2017 Status: F Source: [place] 9:41 AM [facility] [place], [place] REPOSITORY TYPE CODE TESTS RESULT OUT OF RANGE REFERENCE UNITS LAB L501.0100 74-106 mg/dL High GLU 110 Result Comment: Fasting Glucose result from 100 to 125 mg/dL suggests IMPAIRED HOMEOSTASIS per A.D.A. criteria. Please note revised GLUCOSE reference range effective 2017. LAB L501.1000 7-18 mg/dL High BUN 19 LAB L501.1100 0.70-1.30 mg/dL Normal CREAT,SERUM 1.15 Result Comment: The validity of the calculated GFR AND GFRAA in patients over 70 years has not been determined. Clinical correlation is essential. LAB L501.1110 >60 mL/min Normal EST GFR 69 Result Comment: Non- GFR Calc LAB L501.1115 >60 mL/min Normal EST GFR - AA 84 Result Comment: GFR Calc LAB L501.1300 10-20 RATIO Normal BUN/CRE 16.5 LAB L501.1400 3.5-7.2 mg/dL High URIC 9.7 Result Comment: The drugs N-Acetylcysteine and Metamizole may falsely depress this assay. LAB L501.1500 6.4-8.2 g/dL Normal T PROT 7.8 LAB L501.1800 3.2-5.0 g/dL Normal ALB 3.8 LAB L501.1950 2.2-4.2 g/dL Normal GLOB 4.0 LAB L501.2000 0.9-2.4 RATIO Normal A/G 1.0 LAB L501.2200 8.5-10.1 mg/dL Normal CA 8.6 LAB L501.2300 2.5-4.9 mg/dL Low PHOS 2.1 LAB L501.4100 15-37 U/L High AST 41 LAB L501.4305 45-117 U/L Normal ALK P 65 LAB L501.4405 16-61 U/L Normal ALT 59 LAB L501.4600 0.20-1.00 mg/dL Normal T BILI 0.90 LAB L501.4700 0.00-0.30 mg/dL Normal D BILI 0.18 LAB L501.4900 200 mg/dL Normal CHOL 164 Result Comment: <200 mg/dL Desirable 200-240 mg/dL Borderline >240 mg/dL High Risk LAB L501.5000 mg/dL High TRIG 245 Result Comment: The drugs N-Acetylcysteine and Metamizole may falsely depress this assay. Serum Triglycerides Reference Interval Normal <150 mg/dL Borderline high 150 - 199 mg/dL High 200 - 499 mg/dL Very High > or = 500 mg/dL LAB L501.5300 136-145 mmol/L Normal NA 140 LAB L501.5600 3.5-5.1 mmol/L Low K 3.4 LAB L501.5900 98-107 mmol/L Normal CL 101 LAB L501.6100 21.0-32.0 mmol/L Normal CO2 29.0 LAB L501.6200 5-15 Normal GAP 10 LAB L501.6400 mg/dL Low HDL 34 Result Comment: The drugs N-Acetylcysteine and Metamizole may falsely depress this assay. Reference Range HDL <40 mg/dL Low HDL Cholesterol HDL >or= 60 mg/dL High HDL Cholesterol LAB L501.6475 Normal CHOL:HDL 4.80 LAB L501.6500 0-130 mg/dL Normal LDL 81 LAB L501.6600 5-40 mg/dL High VLDL 49 LAB L504.2610 87-241 U/L Normal LDH 213 Performed By: #### L500.2900 #### [facility] [address] 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 Is patient in pain?: Yes Allergies Penicillins Allergy (Verified 08/04/17 09:40) Other Medications Atenolol/Chlorthalidone [Tenoretic 50 Tablet] 1 tab PO DAILY 08/11/15 [History Confirmed 08/04/17] Citalopram [Celexa] 40 mg PO DAILY 08/11/15 [History Confirmed 08/04/17] Pantoprazole Sodium [Protonix] 40 mg PO BID 08/11/15 [History Confirmed 08/04/17] Potassium Chloride [Klor-Con Sprinkle] 10 meq PO DAILY 08/11/15 [History Confirmed 08/04/17] Ramipril [Altace] 10 mg PO DAILY 08/11/15 [History Confirmed 08/04/17] aspirin 81 mg tablet,delayed release 81 mg PO QDAY 07/31/17 [History Confirmed 08/04/17] lorazepam 1 mg tablet 1 mg PO TID PRN 07/31/17 [History Confirmed 08/04/17] pravastatin 40 mg tablet 40 mg PO QHS 07/31/17 [History Confirmed 08/04/17] ibuprofen 600 mg tablet 600 mg PO Q6H PRN 10 Days #30 tab 08/04/17 [Rx Confirmed 08/04/17] methylprednisolone 4 mg tablets in a dose pack 4 mg PO PER PKG DIR 5 Days #21 tab 08/04/17 [Rx Confirmed 08/04/17] PFSH Medical History BMI 35.0-35.9,adult (Chronic) Hyperlipemia (Chronic) Hyperlipidemia (Chronic) Hypertension (Chronic) Atherosclerotic heart disease of ey[place] coronary artery without angina pectoris (Chronic) Obstructive sleep apnea (Chronic) Surgical History History of left heart catheterization (Chronic) Stented coronary artery (Chronic) Social History Smoking Status: Never smoker HPI HPI Details: SUDHA WANG, is a 57 M who presents to the office today for left knee pain and inflammation. Patient states that 8 years ago he had surgery on his patella tendon and since then has had bouts of inflammation. He states that he was on his knees this weekend working and has since developed redness and irritation to the left knee. He does also report some history of gout with an elevated level of uric acid in the past. He denies any calf pain, shortness of breath or difficulty breathing. No fever, chills, sweats. No nausea, vomiting, diarrhea. No other associated symptoms or alleviating/aggravating factors. ROS Const Constitutional: No chills, fever(s), fatigue or abnormal sleep pattern Resp Respiratory: No shortness of breath or chest congestion Cardio Cardiology: No chest pain at rest, chest pain with exertion or shortness of breath Musc Musculoskeletal: Positive for joint pain, joint swelling and stiffness; no limited range of motion, muscle cramps or numbness Skin Skin: Positive for redness; no wounds or lesions Neuro Neurology: No behavioral changes, confusion or numbness Psych Psychiatric: No behavioral changes, No confusion, No abnormal sleep pattern Endo Endocrine: No fatigue Exam Const General: cooperative, healthy appearing HENMT Head: normocephalic, atraumatic Ears: hearing grossly normal bilaterally Face and sinus: face symmetric Eyes General: appearance normal, both eyes and all related structures Pupils: PERRL Resp Effort AND Inspection: normal respiratory effort Auscultation: Bilateral: Clear to Auscultation Cardio Rate: regular rate Rhythm: regular rhythm Heart Sounds: S1 normal, S2 normal Musc Musculoskeletal: Yes joint tenderness and joint redness (redness to inferior patellar tendon attachment. No warmth or fluctuance. ); no joint warmth or decreased ROM Skin General: no rashes or lesions noted Psych Appearance: grossly normal Assessment AND Plan Problems 1. Inflammation of the joints due to gout M10.9 Status Acute Plan Patient has been advised to use ice 3 times daily for 20 minutes as well as ibuprofen 6-800 mg as needed every 6 hours for pain and inflammation. Advised of potential red flags and when appropriate report to the ED. Patient verbalized understanding of all the above. Medications New: Coding Level of Care Code Off vis,est,level 3 Diagnoses Inflammation of the joints due to gout M10.9 08/04/17 1006 <Electronically signed by Vladislav MEYER> Date Vladislav MEYER Cosigner Signature: Date (if applicable) CC: CARDIOLOGY VISIT Observed: 07/31/2017 Status: F Source: KAYLI REPORT 4:19 PM [facility] [place], [place] REPOSITORY [facility] [address] [place] [address] OFFICE VISIT Date of Service: 07/31/17 MR#: [id number] Acct: [id number] Name: SUDHA WANG Rep #: [id number] : 1960 Provider: Jerson King MD Age/Sex: 57/M Location: [facility] [place] Status: Signed HPI 1 Y FU: Chief Complaint: Follow-up visit. Details: SUDHA WANG, is a 57 M who presents to the office today for a follow-up visit. He is a gentleman with a history of known coronary artery disease status post angioplasty and stenting of the left anterior descending artery initially 1997 and restenting in 2007. His last catheterization which demonstrated a 90-95% stenosis in the left anterior descending artery the circumflex artery had a 4050% stenosis in the right coronary artery which was previously stented was widely open. He had a stress test in 2008 and most recently in 2016. During the stress test he exercised to stage III of the Parker protocol with a rate pressure product of 26,000 no clinical angina was noted at 9.3 metabolic equivalents. There was minimal functional aerobic impairment. He has been doing well since then denying any chest pain or shortness of breath or paroxysmal nocturnal dyspnea or pedal edema he has been under a fair amount of stress due to his work but he says that when he checks his blood pressure at work it has been normal but sometimes towards the end of the day or here it is noted to be elevated. He has not had any dizziness or diaphoresis no near syncope or syncope. His physical exam today demonstrates clear lung bravo regular rate and rhythm no pedal edema his blood pressure is mildly elevated. Intake Vital Signs07/31/17 Height 6 ft 5 in 07/31/17 Weight: 302 lb 07/31/17 Body Mass Index (BMI) 35.8 07/31/17 Blood Pressure 150/80 Intake Visit Reasons: 1 Y FU Allergies Penicillins Allergy (Verified 12/23/16 13:37) Other Medications Atenolol/Chlorthalidone [Tenoretic 50 Tablet] 1 tab PO DAILY 08/11/15 [History Confirmed 07/31/17] Citalopram [Celexa] 40 mg PO DAILY 08/11/15 [History Confirmed 07/31/17] Pantoprazole Sodium [Protonix] 40 mg PO BID 08/11/15 [History Confirmed 07/31/17] Potassium Chloride [Klor-Con Sprinkle] 10 meq PO DAILY 08/11/15 [History Confirmed 07/31/17] Ramipril [Altace] 10 mg PO DAILY 08/11/15 [History Confirmed 07/31/17] aspirin 81 mg tablet,delayed release 81 mg PO QDAY 07/31/17 [History Confirmed 07/31/17] lorazepam 1 mg tablet 1 mg PO TID PRN 07/31/17 [History Confirmed 07/31/17] pravastatin 40 mg tablet 40 mg PO QHS 07/31/17 [History Confirmed 07/31/17] Ejection fraction %: 65 to 70 (65% 08/07/16 per echo) PFSH Social History Smoking Status: Never smoker ROS Const Const: Positive for fatigue (stress and fatigue); negative for body ache, fever(s), chills, night sweats, daytime sleepiness, difficulty sleeping, weight gain, weight loss, increased appetite, poor appetite, anorexia, other or excessive sweating ENT ENT: Negative for balance problems Cardio Chest Pain: No Palpitations: Positive for Yes (Only occasional skipped beats) Palpitations: skipping Edema: Right (Mild in right foot and ankle, has hx ankle injury on that side) Muscle aches with walking: None Resp Respiratory: Negative for SOB with activity, SOB at rest, SOB orthopnea\SOB lying down, Coughing up blood/hemoptysis, chest congestion, pain on inspiration, snoring, stridor, wheezing, crackles, paroxysmal nocturnal dyspnea or other GI GI: Negative nausea, vomiting, heartburn, constipation, belching, bloating, cramping, vomiting blood/hematemesis, bright, red blood in stools, black,tarry stools, loose stools, Difficulty Swallowing or other Musc Musc: Negative for muscle aches/ myalgia, muscle weakness, joint pain or balance problems Endo Endo: Positive for fatigue (stress and fatigue); negative for cold intolerance, heat intolerance, excessive sweating, flushing, increased thirst/drinking, increased hunger, hair loss, hair growth or other Cardiology Exam Const Appearance: cooperative, healthy appearing, well developed, well groomed and no acute distress Nutritional Appearance: well nourished and average body habitus Orientation: alert, awake and oriented x3 Head Head: normal to inspection, normocephalic and atraumatic Ears: hearing grossly normal bilaterally and external ears normal Nose: external nose normal, nasal mucous membranes and turbinates normal, nares normal, septum normal, no nasal discharge Face and Sinus: face symmetric Mouth: oral mucosae normal, tongue normal, oropharynx normal and moist mucous membranes Teeth and gingiva: dentition normal Throat: posterior oropharynx normal, tonsils normal and uvula midline Eyes General: appearance normal, both eyes and all related structures Eyelids: eyelids normal Conjunctivae: conjunctivae normal Pupils: PERRL, normal by confrontation and accommodation normal EOM: EOM intact bilaterally Neck Neck: normal visual inspection, trachea midline and no JVD JVD: +5 Carotids: normal carotid upstroke and bounding pulses Chest Chest inspection: normal inspection of the chest, symmetric chest movement and normal respiratory effort Auscultation: Bilateral: Clear to Auscultation Cardio Palpation: normal PMI Rate: regular rate Rhythm: regular rhythm Heart sounds: S1 normal, S2 normal and normal, physiologic split S2; negative rub, gallop or murmur GI GI: normal to inspection, soft, no hepatosplenomegaly and bowel sounds present Neuro General: alert, awake, oriented x3, no focal sensory deficit, gait normal and moves all extremities Skin Skin: no rashes or lesions noted Extremities Pulses: Normal: Right Femoral Pulse, Left Femoral Pulse, Right Dorsalis Pedis Pulse, Left Dorsalis Pedis Pulse, Right Posterior Tibial Pulse, Left Posterior Tibial Pulse, Right Radial Pulse, Left Radial Pulse Lower Extremity Edema: None: Bilateral Musculoskel Musculoskeletal: No joint tenderness Psych Psychological: normal affect Assessment AND Plan 1. Coronary artery disease involving eyak coronary artery of eyak heart without angina pectoris I25.10 Plan He does have known coronary artery disease status post previous stenting. His most recent stress test did not demonstrate any evidence for ischemia my plan is for him to continue the current medical therapy with his aspirin as well as his beta- zeny. He will also remain on his medium intensity statin. 2. Essential hypertension I10 Plan His blood pressure here today is elevated but have asked him to continue checking this at work and also at home. We had initially talked about discontinuing his atenolol and chlorthalidone and putting him on Toprol however at this time he would prefer to remain on this and I do not think there is any contraindication. In view of his hypertension I like to obtain a carotid study as well as an abdominal aortic ultrasound at some point. We will schedule this as an outpatient. 3. Pure hypercholesterolemia E78.00; E78.0 Plan He remains on medium intensity statin and his most recent lipid profile demonstrated total cholesterol 150 and LDL of 74 and an HDL of 42. I suspect that he will be having an employee physical in the near future with blood work and we would assess and reevaluate the above. Thank you for allowing me to participate in his care. 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 transplanted heart: eyak heart Associated angina: without angina Essential hypertension I10 Hypertension type: essential hypertension Pure hypercholesterolemia E78.00; E78.0 Hyperlipidemia type: pure hypercholesterolemia Coding Level of Care Code Off vis,est,level 4 Diagnoses Coronary artery disease involving ey[place] coronary artery of ey[place] heart without angina pectoris I25.10 Coronary Disease-Associated Artery/Lesion type: [place] artery [place] vs. transplanted heart: [place] heart Associated angina: without angina Essential hypertension I10 Hypertension type: essential hypertension Pure hypercholesterolemia E78.00; E78.0 Hyperlipidemia type: pure hypercholesterolemia 07/31/17 1619 <Electronically signed by Jerson King MD> Date Jerson King MD Cosigner Signature: Date (if applicable) CC: Guanakito Wynn DO ALLERGIES ALLERGIES DATE TYPE / CODE NAME / CODE REACTION SEVERITY SOURCE 07/13/2018 Drug Penicillins/ Other Unknown [facility] Allergy/4160 [id number]([facility] [address](SNOMED XNORM) Repository CT) ENCOUNTERS ENCOUNTERS ADMIT/DISCHARGE ACCOUNT ADMITTING ENCOUNTER LOCATION SOURCE NUMBER CLASS 07/17/2018 [id number] Ambulatory Alexander Kayli 9 [facility] ing:BFHLAB Repository 07/13/2018 [id number] Ambulatory Alexander Kayli 0 [facility] ing:LABSPEC Repository 07/13/2018/ [id number] Ambulatory BMS[facility] 07/07/2018 [id number] Ambulatory Kayli Alexander 0 [facility] ing:LABSPEC Repository 07/07/2018/ [id number] Ambulatory BMSBuilding:B Alexander 9 7 [facility] Repository 03/19/2018/ [id number] Ambulatory BMSBuilding:B Kayli 8 1 [facility] Repository 03/18/2018/ [id number] Ambulatory BMSBuilding:B Alexander 8 0 [facility] Repository 03/16/2018/ [id number] Ambulatory BMSBuilding:B Alexander 8 6 [facility] Repository 02/27/2018/ [id number] Ambulatory BMSBuilding:B Alexander 8 3 [facility] Repository 01/29/2018 [id number] Ambulatory Kayli Kayli 7 [facility] ing:LAB Repository 01/29/2018/ [id number] Ambulatory BMSBuilding:B Kayli 8 5 [facility] Repository 12/11/2017 [id number] Ambulatory Alexander Alexander 7 [facility] ing:EMPH Repository 08/04/2017/ [id number] Ambulatory BMSBuilding:B Alexander 8 7 [facility] Repository 07/31/2017 [id number] Ambulatory BMSBuilding:B Kayli 2 [facility] Repository 07/31/2017/ [id number] Ambulatory BMSBuilding:B Kayli 8 7 [facility] Repository PAYERS PAYERS ENCOUNTER GUARANTOR PAYER SUBSCRIBER SOURCE 07/17/2018 SUDHA Woody Primary Insurance:[facility] SUDHA HENDRIX Daily Secret [facility] AUBRIEB: [facility] [place] Number: Repository [address]Std: (181) [id number] [phone] () Date:4393-05-89LG [address] [address]SZCMFRGSK, [place] [address]XF: CHECK WEBSITE 07/17/2018 Secondary NOT GIVENUNK Alexander Insurance:SELF PAY [facility] Number: Effective Repository Date:2018-07-17 07/13/2018 SUDHA Woody Primary Insurance:[facility] SUDHA Woody Alexander [id number] [facility] [place] 7064-01-[place] Number: Repository [id number]: 304 [id number] [phone]) Date:1411-95-05TC [address] [address]KZNXLLDOG, [place] [address]BU: CHECK WEBSITE 07/13/2018 Secondary NOT GIVENUNK Alexander Insurance:SELF PAY [facility] Number: Effective Repository Date:2018-07-13 07/13/2018 SUDHA Woody Primary Insurance:[facility] SUDHA Woody Kayli [id number] [facility]: Community [place] [facility] 3757-98-22[place]TH[place], [place] Number: Repository [address]Nkt: 304 [id number] [phone]) Date:7457-93-67QX [address] [address]CGDAQPWOT, [place] [address]GU: CHECK WEBSITE 07/13/2018 Secondary NOT GIVENUNK Kayli Insurance:SELF PAY [facility] Number: Effective Repository Date:2018-07-13 07/07/2018 SUDHA Woody Primary Insurance:[facility] SUDHA Woody Alexander [id number] [facility]: Community [place] [facility] 0119-43-47[place]FZ[place] Number: Repository [address]Zye: 304 [id number] [phone] (HP) Date:0832-36-50MM [address] [address]KBVDGPCRE, [place] [address]DC: CHECK WEBSITE 07/07/2018 Secondary NOT GIVENUNK Kayli Insurance:SELF PAY [facility] Number: Effective Repository Date:2018-07-07 07/07/2018 SUDHA G Primary Insurance:[facility] SUDHA Woody Alexander [id number] [facility]: Community [place] [facility] 9994-36-54[place]CM[place] Number: Repository [address]Zio: (131) [id number] [phone]) Date:5405-13-04HB [address] [address]MMRCGJJVG, [place] [address]JK: CHECK WEBSITE 07/07/2018 Secondary NOT GIVENUNK Kayli Insurance:SELF PAY [facility] Number: Effective Repository Date:2018-07-07 03/19/2018 SUDHA Woody Primary Insurance:[facility] SUDHA Woody Alexander [id number] [facility]: [facility] [place] [facility] 7458-43-07[place]PDW[place] Number: Repository [address]Odo: 304 [id number] [phone] () Date:1543-25-29RN [address] [address]HDDHWRCZY, [place] [address]PH: CHECK WEBSITE 03/19/2018 Secondary NOT GIVENUNK Kayli Insurance:SELF PAY [facility] Number: Effective Repository Date:2018-03-19 03/18/2018 SUDHA Bong Primary Insurance:[facility] SUDHA Woody Alexander [id number] [facility]: [facility] [place] [facility] 3562-69-44VHCW[place] Number: Repository [address]Xvh: 304 [id number] [phone] () Date:0186-32-90EU [address] [address]XIVCCEPDY, [place] [address]ZU: CHECK WEBSITE 03/18/2018 Secondary NOT GIVENUNK Kayli Insurance:SELF PAY [facility] Number: Effective Repository Date:2018-03-18 03/16/2018 SUDHA Woody Primary Insurance:[facility] SUDHA Woody Kayli [id number] [facility]: [facility] [place] [facility] 1535-80-11PRJW[place] Number: Repository [address]Xwh: 304 [id number] [phone] () Date:1746-89-57FB [address] [address]NVMIYHSAF, [place] [address]NY: CHECK WEBSITE 03/16/2018 Secondary NOT GIVENUNK Alexander Insurance:SELF PAY [facility] Number: Effective Repository Date:2018-03-16 02/27/2018 SUDHA Woody Primary Insurance:[facility] SUDHA Woody Alexander [id number] [facility]: [facility] [place] [facility] 4649-32-66TYUWinton, [place] Number: Repository [address]Ssv: (304 [id number] [phone] (HP) Date:4448-93-83VO [address] [address]LLFHPYONO, [place] [address]MP: CHECK WEBSITE 02/27/2018 Secondary NOT GIVENUNK Alexander Insurance:SELF PAY [facility] Number: Effective Repository Date:2018-02-27 01/29/2018 SUDHA Woody Primary Insurance:[facility] SUDHA Woody Kayli [id number] [facility]: [facility] 5518-44-64UBWWinton[place] Number: Repository [address]Wlr: 304 [id number] [phone] () Date:0080-98-56VH [address] [address]AQLUFLTKF, [place] [address]ZU: CHECK WEBSITE 01/29/2018 Secondary NOT GIVENUNK Kayli Insurance:SELF PAY [facility] Number: Effective Repository Date:2018-01-29 01/29/2018 SUDHA Bong Primary Insurance:[facility] SUDHA Woody Alexander [id number] [facility]: Community [place] [facility] 9308-05-81LKTW[place], [place] Number: Repository [address]Ovp: 304 [id number] [phone] () Date:6217-58-21SO [address] [address]SSOPZXCTI, [place] [address]OS: CHECK WEBSITE 01/29/2018 Secondary NOT GIVENUNK Kayli Insurance:SELF PAY [facility] Number: Effective Repository Date:2017-11-06 12/11/2017 SUDHA Bong Primary NOT GIVENUNK Alexander [id number] Insurance:SELF PAY [place] Number: Effective Repository [phone]: (304) Date:2017-12-11 [phone] (HP) 08/04/2017 SUDHA G Primary Insurance:[facility] SUDHA Woody Kayli [id number] [facility]: Community [place] [facility] 1861-07-78NXDW[place] Number: Repository [address]Uhu: 304 [id number] [phone] () Date:0243-52-88GR [address] [address]RLYXACVTH, [place] [address]WZ: CHECK WEBSITE 08/04/2017 Secondary NOT GIVENUNK Alexander Insurance:SELF PAY [facility] Number: Effective Repository Date:2017-08-04 07/31/2017 Sudha Woody Primary Insurance:[facility] Sudha Woody Kayli [id number] [facility] TaylorDOB: Community [place] [facility] 9096-00-22VQSSpring[place], [place] Number: Repository [address]Ama: 304 [id number] [phone] () Date:6082-79-43MM [address] [address]XBWUQRUJW, [place] [address]IT: CHECK WEBSITE 07/31/2017 Secondary NOT GIVENUNK Kayli Insurance:SELF PAY [facility] Number: Effective Repository Date:2017-06-04 07/31/2017 SUDHA Bong Primary Insurance:[facility] SUDHA Woody Alexander [id number] [facility] [place] [facility] 9241-87-23ATMWinton, [place] Number: Repository [address]Yki: 304 [id number] [phone] () Date:5571-90-21EP [address] [address]REGUWIZSW, [place] [address]MS: CHECK WEBSITE 07/31/2017 Secondary NOT GIVENUNK Alexander Insurance:SELF PAY [facility] Number: Effective Repository Date:2017-07-31
== END ==
PROVIDERS: Family Provider Family Medicine; PCP Family Medicine; Visit Provider Family Medicine
DX: I10 Essential (primary) hypertension (principal); M10.9 Gout, unspecified; E87.6 Hypokalemia; R73.01 Impaired fasting glucose
CPT/HCPCS: 36415; 80053; 83036; 84550

== ENCOUNTER 2018-10-27 15:16 | Observation (INO) | payer OTHER, SELFPAY ==
[2018-09-04 12:39] VITALS: BMI 35.5
[2018-10-27] VITALS (10 sets, daily range): BP systolic 129–156; BP diastolic 72–81; PULSE 62–79; RESP 16; TEMP 36.8–37.3; O2SAT 95–97; BMI 35.9; BMI 35.4
--- NOTE | 2018-10-27 15:38 | EKG12_ITS ---
Test Reason : Blood Pressure : / mmHG Vent. Rate : 073 BPM Atrial Rate : 073 BPM P-R Int : 148 ms QRS Dur : 096 ms QT Int : 414 ms P-R-T Axes : 008 004 041 degrees QTc Int : 456 ms Normal sinus rhythm Normal ECG Confirmed by [place] ZAMARRIPA ([id number]), material expeditor ANDREAS AHMADI ([id number]) on 11/02/2018 2:14:27 PM Referred By: Otis Proctor Confirmed By:ROSALIA ZAMARRIPA
--- NOTE | 2018-10-27 15:41 | RAD_ITS ---
STUDY: X-RAY CHEST REASON FOR EXAM: Male, 58 years old. Left-sided chest pain TECHNIQUE: Single x2 AP portable view of the chest. COMPARISON: View ordered 2015 chest x-ray FINDINGS: The lungs are clear and expanded. There is no demonstrated pleural abnormality. There is mild cardiac enlargement. Normal mediastinum and vianey. Normal visualized pulmonary arteries. Normal visualized aortic arch and descending thoracic aorta. There is dextroscoliosis. Normal visualized ribs, clavicles, and shoulders. There is no demonstrated abnormality of the visualized soft tissue structures of the upper abdomen. RAD/Chest 1 View (Portable) IMPRESSION: Borderline cardiomegaly. Dextroscoliosis. Stable chest. Electronically Signed: Mi Redding MD at 16:03 EDT Tel , Service support ,
--- NOTE | 2018-10-27 15:42 | ED.VISSUMM ---
- ER Visit Summary Date of Service: 10/27/18 Chief Complaint: [Chest pain ] History of Present Illness: The patient is a 58 M [presents the emergency department complaint of chest pain that started around 1 pm. Patient states that he has just finished eating lunch when he felt some indigestion type sensations in the center of his chest with pressure and fullness. Patient subsequently developed a tightness and pressure in the left side of his lower chest. Patient states the discomfort tends to radiate towards his left shoulder. He is also had some mild discomfort in his left arm. Patient states that he felt very warm when this happened. Patient felt slightly short of breath. No nausea or vomiting. Patient has history of coronary artery disease with multiple stents. Patient with history of hypertension and high cholesterol. Patient currently claims his pain is a 2 or 3 out of 10.] Physical Examination: [HEENT-PERRLA, EOMI. Cranial nerves II through XII grossly intact. TMs clear. Mucous membranes moist. No adenopathy. Cardiovascular-regular rate and rhythm without murmur or ectopy Lungs-clear to auscultation, chest wall stable without crepitus or subcu emphysema Abdomen-normoactive bowel sounds, soft, nontender, no rebound or rigidity, no peritoneal signs. Extremities-intact ?4, normal range of motion, normal pulses, atraumatic] Test Results: [EKG obtained arrival for sinus rhythm with a ventricular rate of 73 bpm with no acute ST segment changes noted. CBC with a white count 9.0, hemoglobin 15, hematocrit 44, placed 193. Chemistries unremarkable Other than a slightly depressed potassium at 3.4. BUN was 17 and creatinine 1.39. Troponin is less than 0.015. Chest x-ray showed some mild cardiomegaly otherwise nothing acute.] Emergency Department Course and Treatment: [Patient had already taken full dose baby aspirin today. He received 40 mEq of potassium chloride p.o. Patient received sublingual nitro tablets x2 and he refused the third as he stated it did not really seem to help his discomfort.] Treatment Plan: [Admit for further work-up and evaluation of his chest pain] Disposition: [Admit ] Impression: [Chest pain-rule out acute coronary syndrome] This note was generated with [employer] software. It may contain incorrect words, spelling, and punctuation that were not noted in review of the chart prior to signing ED Disposition - Plan for ED Patient: Referrals: Guanakito Wynn DO [Primary Care Provider] -
[2018-10-27] MEDS: 0.9% Normal Saline 1,000 ML 150 ML IV (16:12)
[2018-10-27 16:13] LABS: Absolute Lymphocyte Count 2.11 X10^3/ul (0.83-4.51); Absolute Neutrophil Count 5.5 X10^3/uL (2.0-7.7); Basophil# 0.03 X10^3/uL; Basophil% 0.3 % (0-1); Eosinophil# 0.31 X10^3/uL; Eosinophils% 3.5 % (0-5); Hematocrit 43.6 % (40-54); Hemoglobin 15.1 g/dl (13.0-16.5); Lymphocyte # 2.11 X10^3/ul (4.0); Lymphocyte % 23.6 % (19-41); Mean Corp Hgb Conc 34.6 g/gl (32-36); Mean Corpuscular Hgb 29.2 pg (27.0-32.0); Mean Corpuscular Volume 84.2 fL (80-94); Mean Platelet Vol. 11.8 fl (6.2-12.0); Monocyte# 0.99 X10^3/uL; Monocyte% 11.1 % (0-10); Neutrophil # 5.49 X10^3/uL (2.7-7.7); Neutrophil % 61.3 % (47-70); Platelet Count 193 K/mm3 (150-450); RBC Distribution Width CV 13.1 % (11.6-14.6); RBC Distribution Width SD 40.2 fl (35.1-43.9); Red Blood Count 5.18 M/mm3 (4.6-6.2)
[2018-10-27 16:14] LABS: POSITIVE COUNT NO; POSITIVE DIFFERENTIAL NO; POSITIVE MORPHOLOGY NO
[2018-10-27 16:24] LABS: Anion Gap 5 (5-15); BUN 17 mg/dL (7-18); BUN/Creat Ratio 12.2 RATIO (10-20); Calcium,Total 8.4 mg/dL (8.5-10.1); Chloride 103 mmol/L (98-107); Creatinine, Serum 1.39 mg/dL (0.70-1.30); EST Glomerular Filtration Rate 55 mL/min (>60); Est Glom Filt Rate - Afr Amer 67 mL/min (>60); Estimated Creatinine Clearance 72.11 ml/min; Glucose 114 mg/dL (74-106); Potassium 3.4 mmol/L (3.5-5.1); Sodium Level 139 mmol/L (136-145)
--- NOTE | 2018-10-27 16:56 | NURSING ---
DR PIERCE FOR DR SALDIVAR
--- NOTE | 2018-10-27 16:57 | NURSING ---
PCU OBS JOEL PIERCE
--- NOTE | 2018-10-27 17:06 | NURSING ---
DR PIERCE IN ROOM
--- NOTE | 2018-10-27 17:10 | PCM.HP.STD ---
Problem List (1) History of coronary artery stent placement Status: Chronic Comment: PCI to RCA 1996; PCI/stent to LAD 1997; PCI with rotoblator /brachytherapy/in-stent restenosis to LAD 07/03/07 (2) Essential (primary) hypertension Status: Chronic (3) BMI 35.0-35.9,adult Status: Chronic (4) Hyperlipidemia Status: Chronic Qualifiers: (5) Atherosclerotic heart disease of [place] coronary artery without angina pectoris Status: Chronic Qualifiers: Comment: [facility] with PCI to RCA 1996; [facility] with PCI/stent to LAD 1997; [facility] 07/02/07 with rotoblator /brachytherapy/in-stent restenosis to LAD 07/03/07; [facility] 07/10/07 History of Present Illness Date of Admission: 10/27/18 Chief Complaint: Chest pain. The patient is a 58 year old M with past medical history as mentioned above presented to the emergency room because of chest pain. 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 At this time, he still complaining of chest pain on the lateral aspect, it is mild. In the emergency department, his blood pressure was slightly elevated, other vital signs were stable. His routine blood work was remarkable for potassium of 3.4 and creatinine 1.39, otherwise normal. EKG revealed normal sinus rhythm, normal data, normal QRS, no acute ischemic changes. Troponin is negative for chest x-ray showed mild cardiomegaly, otherwise clear. He is being admitted for atypical chest pain for evaluation. Past Medical History Past Medical History (Chronic Problems): Chronic Problems (Last Reviewed 09/04/18 @ 16:09 by Jerson King MD) History of coronary artery stent placement (Chronic 07/03/07) PCI to RCA 1996; PCI/stent to LAD 1997; PCI with rotoblator /brachytherapy/in-stent restenosis to LAD 07/03/07 Essential (primary) hypertension (Chronic) BMI 35.0-35.9,adult (Chronic) Hyperlipidemia (Chronic) Atherosclerotic heart disease of [place] coronary artery without angina pectoris (Chronic) [facility] with PCI to RCA 1996; [facility] with PCI/stent to LAD 1997; [facility] 07/02/07 with rotoblator /brachytherapy/in-stent restenosis to LAD 07/03/07; [facility] 07/10/07 Medical History: Medical History (Last Reviewed 09/04/18 @ 16:09 by Jerson King MD) Essential (primary) hypertension (Chronic) I10 BMI 35.0-35.9,adult (Chronic) Z68.35 Hyperlipidemia (Chronic) E78.5 Atherosclerotic heart disease of [place] coronary artery without angina pectoris (Chronic) I25.10 [facility] with PCI to RCA 1996; [facility] with PCI/stent to LAD 1997; [facility] 07/02/07 with rotoblator /brachytherapy/in-stent restenosis to LAD 07/03/07; [facility] 07/10/07 Fungal dermatitis B36.9 GERD (gastroesophageal reflux disease) K21.9 Gout M10.9 Obstructive sleep apnea G47.33 Allergies Penicillins Allergy (Verified 09/04/18 12:39) Other Home Medications: Ambulatory Orders Medication Instructions Recorded Citalopram [Celexa] 40 mg PO DAILY 08/11/15 Pantoprazole Sodium [Protonix] 40 mg PO BID 08/11/15 lorazepam 1 mg tablet 1 mg PO TID PRN 07/31/17 pravastatin 40 mg tablet 40 mg PO DAILY 07/31/17 aspirin 325 mg tablet 325 mg PO DAILY 01/29/18 lisinopril 20 1 tab PO DAILY 01/29/18 mg-hydrochlorothiazide 25 mg tablet atenolol 50 mg tablet 50 mg PO DAILY 09/04/18 potassium chloride ER 10 mEq 10 meq PO DAILY PRN PRN tab 09/04/18 tablet,extended release Surgical History: Surgical History (Last Updated 10/27/18 @ 17:10 by Otis Proctor MD) History of coronary artery stent placement (Chronic) Onset Date: 07/03/07 Z95.5 PCI to RCA 1996; PCI/stent to LAD 1997; PCI with rotoblator /brachytherapy/in-stent restenosis to LAD 07/03/07 Surgical History: no surgical history Psychiatric History: No pertinent psych hx Lives: Spouse/ Significant Other Smoking Status: Never smoker Alcohol: None Drugs: None - *Family History Maternal Family History: Family History (Last Reviewed 09/04/18 @ 16:09 by Jerson King MD) Mother CAD (coronary artery disease) Sister CAD (coronary artery disease) Brother Hypertension Sister Hypertension History Items: No pertinent history Paternal Family History: Family History (Last Reviewed 09/04/18 @ 16:09 by Jerson King MD) Mother CAD (coronary artery disease) Sister CAD (coronary artery disease) Brother Hypertension Sister Hypertension History Items: No pertinent history Review of Systems Constitutional: Denies: Anorexia, Chills, Fever, Weakness Eyes: Denies: Blurred vision, Double vision, Drainage, Redness HEENT: Denies: Difficulty Hearing, Ear Pain, Eye Pain, Nasal Congestion, Sore Throat Cardiovascular: Reports: Chest Pain. Denies: Edema, Heaviness, Light Headedness, Palpitations, Syncope Respiratory: Reports: Shortness of Breath. Denies: Cough, Pleuritic Pain, Sputum production, Wheezing Gastrointestinal: Reports: Dyspepsia. Denies: Abdominal Pain, Constipation, Diarrhea, Nausea, Vomiting Genitourinary: Denies: Dysuria, Frequency, Hematuria Musculoskeletal: Denies: Arm Pain, Back Pain, Foot Pain Skin: Denies: Dryness, Rash Neurological: Denies: Balance problems, Double vision, Change in Speech, Slurred speech, Confusion, Headaches, Incoordination, Numbness Psychiatric: Denies: Anxiety, Depression Endocrine: Denies: Change in Body Habitus, Polydipsia VTE Information - Inpt Only VTE Present on Admission: No VTE Mechan Device Prophylaxis: None VTE Pharm Prophylaxis ordered?: No - Physical Exam General: Alert, Oriented x3, Cooperative, No apparent distress HEENT: Atraumatic, PERRLA, EOMI, Normocephalic Oral: Moist Mucosa, No Gingival or Mucosal Lesions/ Ulcerations Neck: Supple, No JVD, Negative Carotid Bruits, Trachea Midline, Thyroid Normal Size and Texture Lungs: Clear to auscultation, Normal air movement, No rhonchi, No wheeze, No rales Cardiovascular: Regular rate, Regular Rhythm, Normal S1, Normal S2, PMI Normal Abdomen: Bowel Sounds Present, Soft, Non Tender, Non-Distended, No Hepato-splenomegaly Extremities: No clubbing, No cyanosis, No edema Skin: No rashes, No breakdown Lymphatic: No Cervical, Supraclavicular, or Inguinal Adenopathy Neurological: Cranial nerves II-XII grossly intact, Motor Exam 5/5 strength throughout Psych/Mental Status: Normal Affect, Appropriate, Alert and oriented to time, place, person, mood and affect Vital Signs Temp Pulse Resp BP Pulse Ox 98.6 F 79 16 143/74 H 97 10/27/18 15:17 10/27/18 16:19 10/27/18 15:17 10/27/18 17:00 10/27/18 15:17 Oxygen Delivery Method Room Air Weight: 302 lb 14.642 oz Body Mass Index (BMI) 35.9 Laboratory Tests Past 24 Hrs 10/27/18 10/27/18 15:30 15:30 WBC 9.0 RBC 5.18 Hgb 15.1 Hct 43.6 MCV 84.2 MCH 29.2 MCHC 34.6 RDW 13.1 RDW Differential 40.2 Plt Count 193 MPV 11.8 Immature Gran % (Auto) 0.200 Neut % (Auto) 61.3 Lymph % (Auto) 23.6 [place] % (Auto) 11.1 H Eos % (Auto) 3.5 Baso % (Auto) 0.3 Absolute Neuts (auto) 5.5 Absolute Lymphs (auto) 2.11 Total Counted Not Reportable Sodium 139 Potassium 3.4 L Chloride 103 Carbon Dioxide 31.0 Anion Gap 5 BUN 17 Creatinine 1.39 H Estim Creat Clear Calc 72.11 Est GFR (MDRD) Af Amer 67 Est GFR (MDRD) Non-Af 55 L BUN/Creatinine Ratio 12.2 Glucose 114 H Calcium 8.4 L Troponin I < 0.015 Clinical Impression(s) from Imaging Studies Chest X-Ray 10/27/18 15:41 IMPRESSION: Borderline cardiomegaly. Dextroscoliosis. Stable chest. Electronically Signed: Mi Redding MD at 16:03 EDT Tel , Service support , Assessment/Plan This is a 58 years old male patient presented to the emergency room because of chest pain and he is being admitted for evaluation. #1 atypical chest pain: Risk factors are age, history of CAD, hypertension hyperlipidemia. Initial EKG revealed no acute ischemic changes. Troponin is negative. Chest x-ray shows no acute findings. Patient had a treadmill stress test on July, that revealed small area of distal anteroseptal ischemia with preserved ejection fraction. He had no intervention at that time. Plan: Admit to PCU for observation, cardiac medicine, serial cardiac enzymes, repeat EKG tomorrow morning, nuclear stress test tomorrow morning if cardiac enzymes are negative, IV fluids, IV morphine PRN, IV antiemetics. #2 hypokalemia/mild dehydration: Likely because of HCTZ. He received 1 dose of K-Dur but not in the ER. Plan for IV fluids, give another dose of oral potassium chloride tomorrow morning, repeat BMP tomorrow morning. #3 CAD status post stents: Plan as above, continue aspirin, atenolol, lisinopril and statins. #4 hypertension: Blood pressure stable, continue atenolol and lisinopril as well as HCTZ. #5 hyperlipidemia: Continue statins. #6 DVT prophylaxis: Reveals patient, no prophylaxis indicated. This note was generated with [employer] dictation software. It may contain incorrect words, spelling, and punctuation that were not noted in checking the note before signing. Code Visit OBSV E&M: 14627 Initial observation care L3
--- NOTE | 2018-10-27 17:14 | HP.PCM_ITS ---
Problem List (1) History of coronary artery stent placement Status: Chronic Comment: PCI to RCA 1996; PCI/stent to LAD 1997; PCI with rotoblator /brachytherapy/in-stent restenosis to LAD 07/03/07 (2) Essential (primary) hypertension Status: Chronic (3) BMI 35.0-35.9,adult Status: Chronic (4) Hyperlipidemia Status: Chronic Qualifiers: (5) Atherosclerotic heart disease of [place] coronary artery without angina pectoris Status: Chronic Qualifiers: Comment: [facility] with PCI to RCA 1996; [facility] with PCI/stent to LAD 1997; [facility] 07/02/07 with rotoblator /brachytherapy/in-stent restenosis to LAD 07/03/07; [facility] 07/10/07 History of Present Illness Date of Admission: 10/27/18 Chief Complaint: Chest pain. The patient is a 58 year old M with past medical history as mentioned above presented to the emergency room because of chest pain. 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 At this time, he still complaining of chest pain on the lateral aspect, it is mild. In the emergency department, his blood pressure was slightly elevated, other vital signs were stable. His routine blood work was remarkable for potassium of 3.4 and creatinine 1.39, otherwise normal. EKG revealed normal sinus rhythm, normal data, normal QRS, no acute ischemic changes. Troponin is negative for chest x- ray showed mild cardiomegaly, otherwise clear. He is being admitted for atypical chest pain for evaluation. Past Medical History Past Medical History (Chronic Problems): Chronic Problems (Last Reviewed 09/04/18 @ 16:09 by Jerson King MD) History of coronary artery stent placement (Chronic 07/03/07) PCI to RCA 1996; PCI/stent to LAD 1997; PCI with rotoblator /brachytherapy/in-stent restenosis to LAD 07/03/07 Essential (primary) hypertension (Chronic) BMI 35.0-35.9,adult (Chronic) Hyperlipidemia (Chronic) Atherosclerotic heart disease of [place] coronary artery without angina pectoris (Chronic) [facility] with PCI to RCA 1996; [facility] with PCI/stent to LAD 1997; [facility] 07/02/07 with rotoblator /brachytherapy/in-stent restenosis to LAD 07/03/07; [facility] 07/10/07 Medical History: Medical History (Last Reviewed 09/04/18 @ 16:09 by Jerson King MD) Essential (primary) hypertension (Chronic) I10 BMI 35.0-35.9,adult (Chronic) Z68.35 Hyperlipidemia (Chronic) E78.5 Atherosclerotic heart disease of [place] coronary artery without angina pectoris (Chronic) I25.[address] [facility] with PCI to RCA 1996; [facility] with PCI/stent to LAD 1997; [facility] 07/02/07 with rotoblator /brachytherapy/in-stent restenosis to LAD 07/03/07; [facility] 07/10/07 Fungal dermatitis B36.9 GERD (gastroesophageal reflux disease) K21.9 Gout M10.9 Obstructive sleep apnea G47.33 Allergies Penicillins Allergy (Verified 09/04/18 12:39) Other Home Medications: Ambulatory Orders Medication Instructions Recorded Citalopram [Celexa] 40 mg PO DAILY 08/11/15 Pantoprazole Sodium [Protonix] 40 mg PO BID 08/11/15 lorazepam 1 mg tablet 1 mg PO TID PRN 07/31/17 pravastatin 40 mg tablet 40 mg PO DAILY 07/31/17 aspirin 325 mg tablet 325 mg PO DAILY 01/29/18 lisinopril 20 1 tab PO DAILY 01/29/18 mg-hydrochlorothiazide 25 mg tablet atenolol 50 mg tablet 50 mg PO DAILY 09/04/18 potassium chloride ER 10 mEq 10 meq PO DAILY PRN PRN tab 09/04/18 tablet,extended release Surgical History: Surgical History (Last Updated 10/27/18 @ 17:10 by Otis Proctor MD) History of coronary artery stent placement (Chronic) Onset Date: 07/03/07 Z95.5 PCI to RCA 1996; PCI/stent to LAD 1997; PCI with rotoblator /brachytherapy/in-stent restenosis to LAD 07/03/07 Surgical History: no surgical history Psychiatric History: No pertinent psych hx Lives: Spouse/ Significant Other Smoking Status: Never smoker Alcohol: None Drugs: None - *Family History Maternal Family History: Family History (Last Reviewed 09/04/18 @ 16:09 by Jerson King MD) Mother CAD (coronary artery disease) Sister CAD (coronary artery disease) Brother Hypertension Sister Hypertension History Items: No pertinent history Paternal Family History: Family History (Last Reviewed 09/04/18 @ 16:09 by Jerson King MD) Mother CAD (coronary artery disease) Sister CAD (coronary artery disease) Brother Hypertension Sister Hypertension History Items: No pertinent history Review of Systems Constitutional: Denies: Anorexia, Chills, Fever, Weakness Eyes: Denies: Blurred vision, Double vision, Drainage, Redness HEENT: Denies: Difficulty Hearing, Ear Pain, Eye Pain, Nasal Congestion, Sore Throat Cardiovascular: Reports: Chest Pain. Denies: Edema, Heaviness, Light Headedness, Palpitations, Syncope Respiratory: Reports: Shortness of Breath. Denies: Cough, Pleuritic Pain, Sputum production, Wheezing Gastrointestinal: Reports: Dyspepsia. Denies: Abdominal Pain, Constipation, Diarrhea, Nausea, Vomiting Genitourinary: Denies: Dysuria, Frequency, Hematuria Musculoskeletal: Denies: Arm Pain, Back Pain, Foot Pain Skin: Denies: Dryness, Rash Neurological: Denies: Balance problems, Double vision, Change in Speech, Slurred speech, Confusion, Headaches, Incoordination, Numbness Psychiatric: Denies: Anxiety, Depression Endocrine: Denies: Change in Body Habitus, Polydipsia VTE Information - Inpt Only VTE Present on Admission: No VTE Mechan Device Prophylaxis: None VTE Pharm Prophylaxis ordered?: No - Physical Exam General: Alert, Oriented x3, Cooperative, No apparent distress HEENT: Atraumatic, PERRLA, EOMI, Normocephalic Oral: Moist Mucosa, No Gingival or Mucosal Lesions/ Ulcerations Neck: Supple, No JVD, Negative Carotid Bruits, Trachea Midline, Thyroid Normal Size and Texture Lungs: Clear to auscultation, Normal air movement, No rhonchi, No wheeze, No rales Cardiovascular: Regular rate, Regular Rhythm, Normal S1, Normal S2, PMI Normal Abdomen: Bowel Sounds Present, Soft, Non Tender, Non-Distended, No Hepato- splenomegaly Extremities: No clubbing, No cyanosis, No edema Skin: No rashes, No breakdown Lymphatic: No Cervical, Supraclavicular, or Inguinal Adenopathy Neurological: Cranial nerves II-XII grossly intact, Motor Exam 5/5 strength throughout Psych/Mental Status: Normal Affect, Appropriate, Alert and oriented to time, place, person, mood and affect Vital Signs Temp Pulse Resp BP Pulse Ox 98.6 F 79 16 143/74 H 97 10/27/18 15:17 10/27/18 16:19 10/27/18 15:17 10/27/18 17:00 10/27/18 15:17 Oxygen Delivery Method Room Air Weight: 302 lb 14.642 oz Body Mass Index (BMI) 35.9 Laboratory Tests Past 24 Hrs 10/27/18 10/27/18 15:30 15:30 WBC 9.0 RBC 5.18 Hgb 15.1 Hct 43.6 MCV 84.2 MCH 29.2 MCHC 34.6 RDW 13.1 RDW Differential 40.2 Plt Count 193 MPV 11.8 Immature Gran % (Auto) 0.200 Neut % (Auto) 61.3 Lymph % (Auto) 23.6 Barren % (Auto) 11.1 H Eos % (Auto) 3.5 Baso % (Auto) 0.3 Absolute Neuts (auto) 5.5 Absolute Lymphs (auto) 2.11 Total Counted Not Reportable Sodium 139 Potassium 3.4 L Chloride 103 Carbon Dioxide 31.0 Anion Gap 5 BUN 17 Creatinine 1.39 H Estim Creat Clear Calc 72.11 Est GFR (MDRD) Af Amer 67 Est GFR (MDRD) Non-Af 55 L BUN/Creatinine Ratio 12.2 Glucose 114 H Calcium 8.4 L Troponin I < 0.015 Clinical Impression(s) from Imaging Studies Chest X-Ray 10/27/18 15:41 IMPRESSION: Borderline cardiomegaly. Dextroscoliosis. Stable chest. Electronically Signed: Mi Redding MD at 16:03 EDT Tel , Service support , Assessment/Plan This is a 58 years old male patient presented to the emergency room because of chest pain and he is being admitted for evaluation. #1 atypical chest pain: Risk factors are age, history of CAD, hypertension hyperlipidemia. Initial EKG revealed no acute ischemic changes. Troponin is negative. Chest x-ray shows no acute findings. Patient had a treadmill stress test on July, that revealed small area of distal anteroseptal ischemia with preserved ejection fraction. He had no intervention at that time. Plan: Admit to PCU for observation, cardiac medicine, serial cardiac enzymes, repeat EKG tomorrow morning, nuclear stress test tomorrow morning if cardiac enzymes are negative, IV fluids, IV morphine PRN, IV antiemetics. #2 hypokalemia/mild dehydration: Likely because of HCTZ. He received 1 dose of K-Dur but not in the ER. Plan for IV fluids, give another dose of oral potassium chloride tomorrow morning, repeat BMP tomorrow morning. #3 CAD status post stents: Plan as above, continue aspirin, atenolol, lisinopril and statins. #4 hypertension: Blood pressure stable, continue atenolol and lisinopril as well as HCTZ. #5 hyperlipidemia: Continue statins. #6 DVT prophylaxis: Reveals patient, no prophylaxis indicated. This note was generated with [email or web address] dictation software. It may contain incorrect words, spelling, and punctuation that were not noted in checking the note before signing. Code Visit OBSV E&M: [id number] Initial observation care L3
--- NOTE | 2018-10-27 18:28 | EKG12_ITS ---
Test Reason : CP ADMISSION Blood Pressure : / mmHG Vent. Rate : 066 BPM Atrial Rate : 066 BPM P-R Int : 180 ms QRS Dur : 092 ms QT Int : 430 ms P-R-T Axes : 012 001 040 degrees QTc Int : 450 ms Normal sinus rhythm Normal ECG When compared with ECG of 27-OCT-2018 15:06, MANUAL COMPARISON REQUIRED, DATA IS UNCONFIRMED Confirmed by NY ZAMARRIPA ([id number]), online content editor ANDREAS AHMADI ([id number]) on 11/02/2018 2:42:39 PM Referred By: Otis Proctor Confirmed By:ROSALIA ZAMARRIPA
[2018-10-27] MEDS: 0.9% Normal Saline 1,000 ML 100 ML IV (18:29)
[2018-10-27] MEDS: Pantoprazole Sodium 40 MG Tablet PO (21:38)
[2018-10-27] MEDS: LORazepam 1 MG Tablet PO (21:38)
[2018-10-28] VITALS (20 sets, daily range): BP systolic 113–217; BP diastolic 71–115; PULSE 57–94; RESP 14–18; TEMP 36.7–37.2; O2SAT 93–98
[2018-10-28] MEDS: LORazepam 1 MG Tablet PO ×2 (03:12→10:22)
[2018-10-28] MEDS: amLODIPine 5 MG Tablet PO (03:28)
[2018-10-28] MEDS: hydrALAZINE 20 MG/ML Vial 10 MG IV (03:29)
[2018-10-28 05:18] LABS: Basophil# 0.03 X10^3/uL; Basophil% 0.3 % (0-1); Eosinophil# 0.21 X10^3/uL; Eosinophils% 2.3 % (0-5); Hematocrit 43.6 % (40-54); Hemoglobin 15.1 g/dl (13.0-16.5); Lymphocyte % 12.9 % (19-41); Mean Corp Hgb Conc 34.6 g/gl (32-36); Mean Corpuscular Hgb 29.1 pg (27.0-32.0); Mean Platelet Vol. 11.2 fl (6.2-12.0); Monocyte# 0.91 X10^3/uL; Monocyte% 9.8 % (0-10); Neutrophil # 6.96 X10^3/uL (2.7-7.7); Neutrophil % 74.6 % (47-70); Platelet Count 192 K/mm3 (150-450); RBC Distribution Width CV 13.2 % (11.6-14.6); RBC Distribution Width SD 40.4 fl (35.1-43.9); Red Blood Count 5.19 M/mm3 (4.6-6.2); White Blood Count 9.3 K/mm3 (4.4-11.0)
[2018-10-28 05:27] LABS: International Normalized Ratio 1.1
[2018-10-28 05:32] LABS: POSITIVE COUNT NO; POSITIVE DIFFERENTIAL NO; POSITIVE MORPHOLOGY NO
[2018-10-28 05:36] LABS: Anion Gap 7 (5-15); BUN 15 mg/dL (7-18); BUN/Creat Ratio 13.3 RATIO (10-20); Calcium,Total 8.7 mg/dL (8.5-10.1); Chloride 105 mmol/L (98-107); Creatinine, Serum 1.13 mg/dL (0.70-1.30); EST Glomerular Filtration Rate 70 mL/min (>60); Est Glom Filt Rate - Afr Amer 85 mL/min (>60); Estimated Creatinine Clearance 88.71 ml/min; Glucose 109 mg/dL (74-106); Potassium 3.9 mmol/L (3.5-5.1); Sodium Level 142 mmol/L (136-145)
--- NOTE | 2018-10-28 05:55 | EKG12_ITS ---
Test Reason : AM EKG Blood Pressure : / mmHG Vent. Rate : 084 BPM Atrial Rate : 084 BPM P-R Int : 162 ms QRS Dur : 096 ms QT Int : 392 ms P-R-T Axes : 045 017 043 degrees QTc Int : 463 ms Normal sinus rhythm Normal ECG When compared with ECG of 27-OCT-2018 18:28, MANUAL COMPARISON REQUIRED, DATA IS UNCONFIRMED Confirmed by NY ZAMARRIPA ([id number]), photographic editor ANDREAS AHMADI ([id number]) on 11/02/2018 2:21:29 PM Referred By: Otis Proctor Confirmed By:ROSALIA ZAMARRIPA
[2018-10-28] MEDS: Lisinopril 20 MG Tablet PO (06:05)
[2018-10-28] MEDS: Aspirin 325 MG Tablet PO (06:05)
--- NOTE | 2018-10-28 08:47 | STRESSREP ---
Stress Test Report Date: 10-28-18 Procedure: Exercise tolerance test/imaging study Indications: Chest pain; CAD; PCI Consent: Per the patient Procedure: The patient exercised on a Parker protocol for 6 minutes completing Stage II achieving a peak heart rate of 130 bpm (80 % predicted maximal heart rate) with a peak blood pressure 176/72 mmHg and a peak MET capacity of 7 METs. The baseline ECG demonstrated normal sinus rhythm. The peak exercise ECG demonstrated no obvious ECG changes at the heart rate achieved. There was a rare PAC during exercise and recovery. The functional capacity was considered decreased. There was no complaint of chest discomfort during exercise or recovery. The examination was discontinued secondary to dyspnea. Impression: 1. Technically adequate (percent predicted maximal heart rate greater than 85%) exercise tolerance test 2. Peak exercise ECG with no obvious ECG changes at the heart rate achieved 3. There was a rare PAC during exercise and recovery 4. Nuclear images pending Myocardial perfusion imaging study: Technique: The patient was injected with 14.8 mCi of technetium 99m Cardiolite and subsequently rest SPECT Cardiolite nuclear imaging was obtained in the horizontal long, vertical long, and short axis views. The patient exercised on a Parker protocol for 6 minutes completing Stage II achieving a peak heart rate of 130 bpm (80 % predicted maximal heart rate) with a peak blood pressure 176/72 mmHg and a peak MET capacity of 7 METs.The patient was injected with 44.8 mCi of technetium 99m Cardiolite and subsequently stress SPECT Cardiolite nuclear imaging was obtained in the horizontal long, vertical long, and short axis views. A gated Cardiolite study at peak stress was obtained. Interpretation: Rest and stress SPECT Cardiolite nuclear imaging status post realignment, normalization, and attenuation correction, demonstrates the appearance of an area of diminished myocardial perfusion/tracer uptake in portions of the apical segments which status post stress appears to be somewhat more prominent in the distal inferior septal/inferior apical areas. There are similar type findings on the resting and stress polar map images.. There is diminished and systolic thickening and brightening in the aforementioned areas.. The gated Cardiolite study demonstrates myocardial thickening and inward wall motion. The reported LVEF is 66 %. Impression: 1. Rest and stress SPECT Cardiolite nuclear imaging demonstrate myocardial perfusion changes appearing compatible with an area of previous myocardial injury/infarction involving portions of the apical segments with post stress myocardial perfusion changes appearing compatible with an area of hunter-infarct related myocardial ischemia involving portions of the distal inferoseptal and inferior apical segments. 2. The gated Cardiolite study reports an LVEF of 66 %. This note was generated with [employer] software. It may contain incorrect words, spelling, and punctuation that were not noted in checking the note before signing.
--- NOTE | 2018-10-28 08:53 | STRESSREP_ITS ---
Stress Test Report Date: 10-28-18 Procedure: Exercise tolerance test/imaging study Indications: Chest pain; CAD; PCI Consent: Per the patient Procedure: The patient exercised on a Parker protocol for 6 minutes completing Stage II achieving a peak heart rate of 130 bpm (80 % predicted maximal heart rate) with a peak blood pressure 176/72 mmHg and a peak MET capacity of 7 METs. The baseline ECG demonstrated normal sinus rhythm. The peak exercise ECG demonstrated no obvious ECG changes at the heart rate achieved. There was a rare PAC during exercise and recovery. The functional capacity was considered decreased. There was no complaint of chest discomfort during exercise or recovery. The examination was discontinued secondary to dyspnea. Impression: 1. Technically adequate (percent predicted maximal heart rate greater than 85%) exercise tolerance test 2. Peak exercise ECG with no obvious ECG changes at the heart rate achieved 3. There was a rare PAC during exercise and recovery 4. Nuclear images pending Myocardial perfusion imaging study: Technique: The patient was injected with 14.8 mCi of technetium 99m Cardiolite and subsequ ently rest SPECT Cardiolite nuclear imaging was obtained in the horizontal long, vertical long, and short axis views. The patient exercised on a Parker protocol for 6 minutes completing Stage II achieving a peak heart rate of 130 bpm (80 % predicted maximal heart rate) with a peak blood pressure 176/72 mmHg and a peak MET capacity of 7 METs.The patient was injected with 44.8 mCi of technetium 99m Cardiolite and subsequently stress SPECT Cardiolite nuclear imaging was obtained in the horizontal long, vertical long, and short axis views. A gated Cardiolite study at peak stress was obtained. Interpretation: Rest and stress SPECT Cardiolite nuclear imaging status post realignment, normalization, and attenuation correction, demonstrates the appearance of an area of diminished myocardial perfusion/tracer uptake in portions of the apical segments which status post stress appears to be somewhat more prominent in the distal inferior septal/inferior apical areas. There are similar type findings on the resting and stress polar map images.. There is diminished and systolic thickening and brightening in the aforementioned areas.. The gated Cardiolite study demonstrates myocardial thickening and inward wall motion. The reported LVEF is 66 %. Impression: 1. Rest and stress SPECT Cardiolite nuclear imaging demonstrate myocardial perfusion changes appearing compatible with an area of previous myocardial injury/infarction involving portions of the apical segments with post stress myocardial perfusion changes appearing compatible with an area of hunter-infarct related myocardial ischemia involving portions of the distal inferoseptal and inferior apical segments. 2. The gated Cardiolite study reports an LVEF of 66 %. This note was generated with [employer] software. It may contain incorrect words, spelling, and punctuation that were not noted in checking the note before signing.
--- NOTE | 2018-10-28 09:03 | CASEMGMT ---
According to the [facility] website, the following are in-network tertiary facilities: [facility], [place], [facility], [place], [facility], [facility], [facility], [place], [facility], and . Erica FU CM
[2018-10-28] MEDS: Pantoprazole Sodium 40 MG Tablet PO (10:23)
[2018-10-28] MEDS: TICAGRELOR 90 MG TABLET 180 MG PO (10:23)
[2018-10-28] MEDS: DiphenhydrAMINE 25 MG Capsule 50 MG PO (10:23)
[2018-10-28] MEDS: Atenolol 50 MG Tablet PO (10:29)
--- NOTE | 2018-10-28 11:55 | PCM.CONS.C ---
Problem List (1) History of coronary artery stent placement Status: Chronic Comment: PCI to RCA 1996; PCI/stent to LAD 1997; PCI with rotoblator /brachytherapy/in-stent restenosis to LAD 07/03/07 (2) Hyperlipidemia Status: Chronic Qualifiers: (3) Atherosclerotic heart disease of [place] coronary artery without angina pectoris Status: Chronic Qualifiers: Comment: [facility] with PCI to RCA 1996; [facility] with PCI/stent to LAD 1997; [facility] 07/02/07 with rotoblator /brachytherapy/in-stent restenosis to LAD 07/03/07; [facility] 07/10/07 Reason for Consult Date of Consultation: 10/28/18 History of Present Illness: The patient is a 58 year old M, patient of Dr. Hayden, with a history of hypertension, hypercholesterolemia, severe obesity, coronary artery disease status post angioplasty and stenting of his LAD initially 1997 and then restenting in 2007. At that time his LAD had 90 to 95% stenosis, circumflex had 40-50% stenosis and widely patent RCA stent. Patient had a stress test in 2008 and most recently in 2016. He has had no repeat catheterization since 2007. Apparently the patient had brachii therapy to his LAD in-stent restenosis in 2007. Patient has been doing poorly over the last year or so with decreasing exercise capacity, increasing fatigue, but no exertional anginal symptoms. Patient has extremely stressful job, and developed atypical nonexertional sharp left lower chest pain radiating to his left arm. This was dissimilar from his previous angina. Patient was admitted to [facility] for an EKG was performed which showed normal sinus rhythm, normal axis, normal intervals, no evidence of acute changes. He was ruled out for myocardial infarction with troponins negative x3. The patient did underwent a treadmill/MPI this morning, had no exertional chest pain symptoms, had worsening fatigue, and had evidence of distal anterior infarct with hunter-infarct ischemia in the inferoseptal area. Patient was referred for possible catheterization. On further history the patient states that he has had progressively worsening fatigue, episodes of hypertension including last evening which just ambulating around, positive snoring, morning fatigue, and daytime somnolence. He has never been tested with a sleep study. [] Past Medical History Allergies/Adverse Reactions: Allergies Penicillins Allergy (Verified 09/04/18 12:39) Other Home Medications: Ambulatory Orders Medication Instructions Recorded Citalopram [Celexa] 40 mg PO DAILY 08/11/15 Pantoprazole Sodium [Protonix] 40 mg PO BID 08/11/15 lorazepam 1 mg tablet 1 mg PO TID PRN 07/31/17 pravastatin 40 mg tablet 40 mg PO DAILY 07/31/17 aspirin 325 mg tablet 325 mg PO DAILY 01/29/18 lisinopril 20 1 tab PO DAILY 01/29/18 mg-hydrochlorothiazide 25 mg tablet atenolol 50 mg tablet 50 mg PO DAILY 09/04/18 potassium chloride ER 10 mEq 10 meq PO DAILY PRN PRN tab 09/04/18 tablet,extended release Past Medical History (Chronic Problems): Chronic Problems (Last Reviewed 09/04/18 @ 16:09 by Jerson King MD) History of coronary artery stent placement (Chronic 07/03/07) PCI to RCA 1996; PCI/stent to LAD 1997; PCI with rotoblator /brachytherapy/in-stent restenosis to LAD 07/03/07 Essential (primary) hypertension (Chronic) BMI 35.0-35.9,adult (Chronic) Hyperlipidemia (Chronic) Atherosclerotic heart disease of [place] coronary artery without angina pectoris (Chronic) [facility] with PCI to RCA 1996; [facility] with PCI/stent to LAD 1997; [facility] 07/02/07 with rotoblator /brachytherapy/in-stent restenosis to LAD 07/03/07; [facility] 07/10/07 Surgical History: no surgical history Psychiatric History: No pertinent psych hx - *Family History Maternal Family History: Family History (Last Reviewed 09/04/18 @ 16:09 by Jerson King MD) Mother CAD (coronary artery disease) Sister CAD (coronary artery disease) Brother Hypertension Sister Hypertension History Items: No pertinent history Paternal Family History: Family History (Last Reviewed 09/04/18 @ 16:09 by Jerson King MD) Mother CAD (coronary artery disease) Sister CAD (coronary artery disease) Brother Hypertension Sister Hypertension History Items: No pertinent history Lives: Spouse/ Significant Other Smoking Status: Never smoker Alcohol: None Drugs: None Review of Systems - Review of Systems General: Reports: Fatigue, Sleep Disorder. Denies: Fever, Night Sweats Cardiovascular: Reports: Chest Discomfort, Chest Discomfort at Rest. Denies: Shortness of Breath, Orthopnea, PND, Peripheral Edema, Palpitations, Lightheadedness, Dizziness, Near Syncope, Syncope Respiratory: Denies: Cough, Sputum Production, Hemoptysis Gastrointestinal: Denies: Hematemesis, Hematochezia, Melena Genitourinary: Denies: Dysuria, Hematuria Skin: Denies: Rash Subjectve: Patient appears to be very tired and exhausted, but no acute distress. Objective: Vital Signs Temp Pulse Resp BP Pulse Ox 98.6 F 94 16 136/83 H 98 10/28/18 08:24 10/28/18 08:24 10/28/18 08:24 10/28/18 08:24 10/28/18 08:24 Oxygen Delivery Method Room Air Weight: 299 lb Body Mass Index (BMI) 35.4 Intake and Output for Last 24 Hours 10/26/18 10/27/18 10/28/18 23:59 23:59 23:59 Intake Total 721 / 721 60 / 60 Balance 721 / 721 60 / 60 General: Awake, Alert, Oriented x 3 HEENT: PERRL, EOMI, Sclera Non Icteric Neck: Supple, Good ROM, No Lymph Node Enlargement Lungs: Clear to auscultation Cardiovascular: Regular Rhythm, Normal S1, Normal S2, No Murmurs, No Rubs, No Gallops Vascular: No Carotid Bruits, Normal Femoral Pulses, Normal Radial Pulses, Normal Dorsalis Pedal Pulse, Normal Posterior Tibial Pulses Abdomen: Bowel Sounds Present, Soft, Non Tender, No HSM, No Organomegaly Extremities: No Cyanosis, No Clubbing, No edema Neurological: No Focal Motor or Sensory Deficit 10/27/18 15:30: WBC 9.0, RBC 5.18, Hgb 15.1, Hct 43.6, MCV 84.2, MCH 29.2, MCHC 34.6, RDW 13.1, RDW Differential 40.2, Plt Count 193, MPV 11.8, Immature Gran % (Auto) 0.200, Neut % (Auto) 61.3, Lymph % (Auto) 23.6, [place] % (Auto) 11.1 H, Eos % (Auto) 3.5, Baso % (Auto) 0.3, Absolute Neuts (auto) 5.5, Total Counted Not Reportable 10/27/18 15:30: Sodium 139, Potassium 3.4 L, Chloride 103, Carbon Dioxide 31.0, Anion Gap 5, BUN 17, Creatinine 1.39 H, Est GFR (MDRD) Af Amer 67, Est GFR (MDRD) Non-Af 55 L, BUN/Creatinine Ratio 12.2, Glucose 114 H, Calcium 8.4 L, Troponin I < 0.015 10/27/18 19:00: Troponin I < 0.015 10/27/18 21:16: Troponin I < 0.015 10/28/18 05:03: Sodium 142, Potassium 3.9, Chloride 105, Carbon Dioxide 30.0, Anion Gap 7, BUN 15, Creatinine 1.13, Est GFR (MDRD) Af Amer 85, Est GFR (MDRD) Non-Af 70, BUN/Creatinine Ratio 13.3, Glucose 109 H, Calcium 8.7 10/28/18 05:03: WBC 9.3, RBC 5.19, Hgb 15.1, Hct 43.6, MCV 84.0, MCH 29.1, MCHC 34.6, RDW 13.2, RDW Differential 40.4, Plt Count 192, MPV 11.2, Immature Gran % (Auto) 0.100, Neut % (Auto) 74.6 H, Lymph % (Auto) 12.9 L, [place] % (Auto) 9.8, Eos % (Auto) 2.3, Baso % (Auto) 0.3, Absolute Neuts (auto) 7.0, Total Counted Not Reportable 10/28/18 05:03: PT 14.0, INR 1.1, APTT 26.0 Rhythm: EKG: ECHO: Stress Test: Cardiac Cath: PCI: CT Surgery: Holter monitor: EPS: PPM: CXR: Chest CT Scan: Assessment/Plan 1. Coronary artery disease: Patient presents with atypical, nonexertional chest pain which is not reproducible on exercise stress testing. He does have a history of angioplasty and stenting of his LAD and RCA. His most recent catheterization 11 years ago showed widely patent RCA stent, and aggressive in-stent restenosis of his LAD which required repeat angioplasty and brachy therapy. In addition, and more importantly, the patient has had progressively worsening fatigue, decreased energy, and has signs and symptoms of possible non-diagnosed obstructive sleep apnea. Given the patient's cardiac history and worsening fatigue superimposed on his chest pain radiating to his left arm and evidence of possible hunter-infarct ischemia of the inferoseptal wall, I recommended the patient undergo a repeat catheterization to redefine his coronary anatomy and make corrective measures if necessary. Patient does have a known 40 to 50% stenosis in his mid left circumflex last seen 11 years ago. Patient is on baby aspirin and will be loaded with Brilinta 180 mg x 1 now. Pending the outcome of his catheterization will determine whether he requires continual dual antiplatelet therapy. If his catheterization requires no intervention, I would recommend highly that he undergo a sleep study for obstructive sleep apnea. In addition I recommend he undergo a 2D echo with Doppler to evaluate for possible pulmonary hypertension. 2. Hyperlipidemia: Given the patient's risk factors requires aggressive LDL reduction. Recommend obtaining a fasting lipid profile. Continue pravastatin. 3. Severe obesity: The patient has severe obesity which may be impacting on his overall health, and may require aggressive weight reduction after his catheterization. 4. Recommend obtaining a TSH and T4 as well to determine if he has undiagnosed hypothyroidism. 5. Thank you very much for the opportunity to participate in the cardiac care of your patient. Consultation time took place between 8 AM and 8:30 AM. Code Visit Inpatient E&M: 70497 Init Hosp L2
--- NOTE | 2018-10-28 11:59 | CON.PCM_ITS ---
Problem List (1) History of coronary artery stent placement Status: Chronic Comment: PCI to RCA 1996; PCI/stent to LAD 1997; PCI with rotoblator /brachytherapy/in-stent restenosis to LAD 07/03/07 (2) Hyperlipidemia Status: Chronic Qualifiers: (3) Atherosclerotic heart disease of [place] coronary artery without angina pectoris Status: Chronic Qualifiers: Comment: [facility] with PCI to RCA 1996; [facility] with PCI/stent to LAD 1997; [facility] 07/02/07 with rotoblator /brachytherapy/in-stent restenosis to LAD 07/03/07; [facility] 07/10/07 Reason for Consult Date of Consultation: 10/28/18 History of Present Illness: The patient is a 58 year old M, patient of Dr. Hayden, with a history of hypertension, hypercholesterolemia, severe obesity, coronary artery disease status post angioplasty and stenting of his LAD initially 1997 and then restenting in 2007. At that time his LAD had 90 to 95% stenosis, circumflex had 40-50% stenosis and widely patent RCA stent. Patient had a stress test in 2008 and most recently in 2016. He has had no repeat catheterization since 2007. Apparently the patient had brachii therapy to his LAD in-stent restenosis in 2007. Patient has been doing poorly over the last year or so with decreasing exercise capacity, increasing fatigue, but no exertional anginal symptoms. Patient has extremely stressful job, and developed atypical nonexertional sharp left lower chest pain radiating to his left arm. This was dissimilar from his previous angina. Patient was admitted to [facility] for an EKG was performed which showed normal sinus rhythm, normal axis, normal intervals, no evidence of acute changes. He was ruled out for myocardial infarction with troponins negative x3. The patient did underwent a treadmill/MPI this morning, had no exertional chest pain symptoms, had worsening fatigue, and had evidence of distal anterior infarct with hunter-infarct ischemia in the inferoseptal area. Patient was referred for possible catheterization. On further history the patient states that he has had progressively worsening fatigue, episodes of hypertension including last evening which just ambulating around, positive snoring, morning fatigue, and daytime somnolence. He has never been tested with a sleep study. [] Past Medical History Allergies/Adverse Reactions: Allergies Penicillins Allergy (Verified 09/04/18 12:39) Other Home Medications: Ambulatory Orders Medication Instructions Recorded Citalopram [Celexa] 40 mg PO DAILY 08/11/15 Pantoprazole Sodium [Protonix] 40 mg PO BID 08/11/15 lorazepam 1 mg tablet 1 mg PO TID PRN 07/31/17 pravastatin 40 mg tablet 40 mg PO DAILY 07/31/17 aspirin 325 mg tablet 325 mg PO DAILY 01/29/18 lisinopril 20 1 tab PO DAILY 01/29/18 mg-hydrochlorothiazide 25 mg tablet atenolol 50 mg tablet 50 mg PO DAILY 09/04/18 potassium chloride ER 10 mEq 10 meq PO DAILY PRN PRN tab 09/04/18 tablet,extended release Past Medical History (Chronic Problems): Chronic Problems (Last Reviewed 09/04/18 @ 16:09 by Jerson King MD) History of coronary artery stent placement (Chronic 07/03/07) PCI to RCA 1996; PCI/stent to LAD 1997; PCI with rotoblator /brachytherapy/in-stent restenosis to LAD 07/03/07 Essential (primary) hypertension (Chronic) BMI 35.0-35.9,adult (Chronic) Hyperlipidemia (Chronic) Atherosclerotic heart disease of [place] coronary artery without angina pectoris (Chronic) [facility] with PCI to RCA 1996; [facility] with PCI/stent to LAD 1997; [facility] 07/02/07 with rotoblator /brachytherapy/in-stent restenosis to LAD 07/03/07; [facility] 07/10/07 Surgical History: no surgical history Psychiatric History: No pertinent psych hx - *Family History Maternal Family History: Family History (Last Reviewed 09/04/18 @ 16:09 by Jerson King MD) Mother CAD (coronary artery disease) Sister CAD (coronary artery disease) Brother Hypertension Sister Hypertension History Items: No pertinent history Paternal Family History: Family History (Last Reviewed 09/04/18 @ 16:09 by Jerson King MD) Mother CAD (coronary artery disease) Sister CAD (coronary artery disease) Brother Hypertension Sister Hypertension History Items: No pertinent history Lives: Spouse/ Significant Other Smoking Status: Never smoker Alcohol: None Drugs: None Review of Systems - Review of Systems General: Reports: Fatigue, Sleep Disorder. Denies: Fever, Night Sweats Cardiovascular: Reports: Chest Discomfort, Chest Discomfort at Rest. Denies: Shortness of Breath, Orthopnea, PND, Peripheral Edema, Palpitations, Lightheadedness, Dizziness, Near Syncope, Syncope Respiratory: Denies: Cough, Sputum Production, Hemoptysis Gastrointestinal: Denies: Hematemesis, Hematochezia, Melena Genitourinary: Denies: Dysuria, Hematuria Skin: Denies: Rash Subjectve: Patient appears to be very tired and exhausted, but no acute distress. Objective: Vital Signs Temp Pulse Resp BP Pulse Ox 98.6 F 94 16 136/83 H 98 10/28/18 08:24 10/28/18 08:24 10/28/18 08:24 10/28/18 08:24 10/28/18 08:24 Oxygen Delivery Method Room Air Weight: 299 lb Body Mass Index (BMI) 35.4 Intake and Output for Last 24 Hours 10/26/18 10/27/18 10/28/18 23:59 23:59 23:59 Intake Total 721 / 721 60 / 60 Balance 721 / 721 60 / 60 General: Awake, Alert, Oriented x 3 HEENT: PERRL, EOMI, Sclera Non Icteric Neck: Supple, Good ROM, No Lymph Node Enlargement Lungs: Clear to auscultation Cardiovascular: Regular Rhythm, Normal S1, Normal S2, No Murmurs, No Rubs, No Gallops Vascular: No Carotid Bruits, Normal Femoral Pulses, Normal Radial Pulses, Normal Dorsalis Pedal Pulse, Normal Posterior Tibial Pulses Abdomen: Bowel Sounds Present, Soft, Non Tender, No HSM, No Organomegaly Extremities: No Cyanosis, No Clubbing, No edema Neurological: No Focal Motor or Sensory Deficit 10/27/18 15:30: WBC 9.0, RBC 5.18, Hgb 15.1, Hct 43.6, MCV 84.2, MCH 29.2, MCHC 34.6, RDW 13.1, RDW Differential 40.2, Plt Count 193, MPV 11.8, Immature Gran % (Auto) 0.200, Neut % (Auto) 61.3, Lymph % (Auto) 23.6, [place] % (Auto) 11.1 H, Eos % (Auto) 3.5, Baso % (Auto) 0.3, Absolute Neuts (auto) 5.5, Total Counted Not Reportable 10/27/18 15:30: Sodium 139, Potassium 3.4 L, Chloride 103, Carbon Dioxide 31.0, Anion Gap 5, BUN 17, Creatinine 1.39 H, Est GFR (MDRD) Af Amer 67, Est GFR (MDRD) Non-Af 55 L, BUN/Creatinine Ratio 12.2, Glucose 114 H, Calcium 8.4 L, Troponin I < 0.015 10/27/18 19:00: Troponin I < 0.015 10/27/18 21:16: Troponin I < 0.015 10/28/18 05:03: Sodium 142, Potassium 3.9, Chloride 105, Carbon Dioxide 30.0, Anion Gap 7, BUN 15, Creatinine 1.13, Est GFR (MDRD) Af Amer 85, Est GFR (MDRD) Non-Af 70, BUN/Creatinine Ratio 13.3, Glucose 109 H, Calcium 8.7 10/28/18 05:03: WBC 9.3, RBC 5.19, Hgb 15.1, Hct 43.6, MCV 84.0, MCH 29.1, MCHC 34.6, RDW 13.2, RDW Differential 40.4, Plt Count 192, MPV 11.2, Immature Gran % (Auto) 0.100, Neut % (Auto) 74.6 H, Lymph % (Auto) 12.9 L, [place] % (Auto) 9.8, Eos % (Auto) 2.3, Baso % (Auto) 0.3, Absolute Neuts (auto) 7.0, Total Counted Not Reportable 10/28/18 05:03: PT 14.0, INR 1.1, APTT 26.0 Rhythm: EKG: ECHO: Stress Test: Cardiac Cath: PCI: CT Surgery: Holter monitor: EPS: PPM: CXR: Chest CT Scan: Assessment/Plan 1. Coronary artery disease: Patient presents with atypical, nonexertional chest pain which is not reproducible on exercise stress testing. He does have a history of angioplasty and stenting of his LAD and RCA. His most recent catheterization 11 years ago showed widely patent RCA stent, and aggressive in- stent restenosis of his LAD which required repeat angioplasty and brachy therapy. In addition, and more importantly, the patient has had progressively worsening fatigue, decreased energy, and has signs and symptoms of possible non-diagnosed obstructive sleep apnea. Given the patient's cardiac history and worsening fatigue superimposed on his chest pain radiating to his left arm and evidence of possible hunter-infarct ischemia of the inferoseptal wall, I recommended the patient undergo a repeat catheterization to redefine his coronary anatomy and make corrective measures if necessary. Patient does have a known 40 to 50% stenosis in his mid left circumflex last seen 11 years ago. Patient is on baby aspirin and will be loaded with Brilinta 180 mg x 1 now. Pending the outcome of his catheterization will determine whether he requires continual dual antiplatelet therapy. If his catheterization requires no intervention, I would recommend highly that he undergo a sleep study for obstructive sleep apnea. In addition I recommend he undergo a 2D echo with Doppler to evaluate for possible pulmonary hypertensio n. 2. Hyperlipidemia: Given the patient's risk factors requires aggressive LDL reduction. Recommend obtaining a fasting lipid profile. Continue pravastatin. 3. Severe obesity: The patient has severe obesity which may be impacting on his overall health, and may require aggressive weight reduction after his catheterization. 4. Recommend obtaining a TSH and T4 as well to determine if he has undiagnosed hypothyroidism. 5. Thank you very much for the opportunity to participate in the cardiac care of your patient. Consultation time took place between 8 AM and 8:30 AM. Code Visit Inpatient E&M: 68605 Init Hosp L2
[2018-10-28 13:08] LABS: Cholesterol 147 mg/dL (200); High Density Lipoprotein 37 mg/dL; Thyroid Stim Hormone (TSH) 1.91 uIU/mL (0.358-3.74); Triglycerides 166 mg/dL; Very Low Density Lipoprotein 33 mg/dL (5-40)
--- NOTE | 2018-10-28 14:17 | CHAPLAIN ---
Type of Pastoral Visit _x__ Initial Visit ___ Follow-up Visit ___ On-call Visit ___ General Patient Visit ___ Spiritual Assessment ___ Family Conference ___ Bereavement ___ Rapid Response ___ Code Blue ___ Other (describe below) Pastoral Care Referral From _x__ Patient ___ Family ___ Nurse ___ Physician ___ Show Design Supervisor ___ Field Crops Harvest Machine Operator ___ Other (describe below) Sacrament/Intervention _x__ Active listening ___ Anointing ___ Taoist ___ Bereavement ___ Communion ___ Tanisha exploration ___ _x__ Life review _x__ Prayer ___ Reconciliation ___ Sacrament of Sick _x__ Supportive presence ___ Wedding ___ Other (describe below) Pastoral Comments
--- NOTE | 2018-10-28 14:26 | ECHOCS_ITS ---
Reason For Study: CAD/ASHD Procedure This was a 2D Doppler, Color Flow transthoracic echocardiogram. Contrast injection was performed. Exam performed portable in patient room. Left Ventricle Moderately dilated left ventricle. The estimated ejection fraction is 55-60 %. Stage 1 diastolic dysfunction. There are regional wall motion abnormalities as specified. Basal anteroseptal: Mildly hypokinetic. Right Ventricle Normal size and thickness. Normal systolic function. Atria The left atrium is moderately enlarged. Normal right atrium. Normal atrial septum. Mitral Valve The mitral valve is structurally normal. No prolapse or stenosis seen. Mild (1+) mitral valve insufficiency. Tricuspid Valve Normal tricuspid valve. Trivial tricuspid valve insufficiency. Unable to estimate RV systolic pressure/pulmonary artery pressure due to technically difficult study. Aortic Valve Normal aortic valve. Trisinus/trileaflet aortic valve. Pulmonic Valve Normal pulmonic valve. Great Vessels Normal aortic root. Normal arch. Normal inferior vena cava. Inferior vena cava collapse with sniff. Pericardium/Pleural No pericardial effusion. Medication Diluted definity 4ml given slow IV push to enhance endocardial definition. MMode/2D Measurements & Calculations LVIDd: 5.9 cm IVSd: 1.1 cm Ao root diam: 3.8 cm LVIDs: 4.1 cm LVPWd: 1.3 cm LA dimension: 4.7 cm FS: 29.8 % LAV(MOD-bp): 97.6 ml LA A4 area: 26.4 cm2 RA A4 area: 14.9 cm2 LAV(MOD-bp) Indexed: 37.5 ml/m2 LAV(MOD-sp2): 103.5 ml LAV(MOD-sp4): 89.7 ml Time Measurements MV dec time: 0.31 sec Doppler Measurements & Calculations MV E max jordy: 62.6 cm/sec Lat Peak E' Jordy: 10.4 cm/sec Med Peak E' Jordy: 6.8 cm/sec MV A max jordy: 78.2 cm/sec E/E' lat: 6.0 E/E' med: 9.2 MV E/A: 0.80 MV V2 max: 87.1 cm/sec MV P1/2t max jordy: 75.1 cm/sec Ao V2 max: 189.8 cm/sec MV max P.0 mmHg MV P1/2t: 128.0 msec Ao max P.4 mmHg MV V2 mean: 47.9 cm/sec MV dec slope: 171.7 cm/sec2 Ao V2 mean: 123.7 cm/sec MV mean P.0 mmHg Ao mean P.0 mmHg MV V2 VTI: 29.2 cm MVA(P1/2t): 1.7 cm2 Ao V2 VTI: 37.8 cm LV V1 max: 112.3 cm/sec MR max jordy: 543.5 cm/sec PA V2 max: 137.0 cm/sec LV V1 max P.0 mmHg MR max P.2 mmHg LV V1 mean P.1 mmHg LV V1 mean: 67.0 cm/sec LV V1 VTI: 23.5 cm Interpretation Summary Moderately dilated left ventricle. The estimated ejection fraction is 55-60 %. Stage 1 diastolic dysfunction. There are regional wall motion abnormalities as specified. The left atrium is moderately enlarged. Mild (1+) mitral valve insufficiency. Trivial tricuspid valve insufficiency. Unable to estimate RV systolic pressure/pulmonary artery pressure due to technically difficult study. The study was technically difficult. There is no comparison study available. Contrast injection was performed. Ordering Physician: Henrique Cano Referring Physician: Otis Proctor Performed By: Curry Gongora [facility]
--- NOTE | 2018-10-28 14:41 | CL.D_ITS ---
Patient Name: SUDHA WANG Study Date: 10/28/2018 Performing: Henrique Cano MD Ht: 77 inches 196 cm : 1960 Wt: 300.2 lbs 136 kg Age: 58 Gender: male BSA: 2.66 PROCEDURE(S) PERFORMED [id number]/LV CLINICAL PROFILE AND INDICATIONS Indications: ACS <= 24 hrs, New Onset Angina <= 2 months, Stable Known CAD Heart Failure: None Stress/Imaging Stress Test w/SPECT MPI: Yes Result: Positive Intermediate RiskStress Test with SP ECT MPI: Positive Intermediate Risk Angina Classification Anginal Classification w/in 2 Weeks: CCS IV CAD Presentations: Unstable angina. Other: Fatigue, dyspnea Comorbidities/Risk Factors: Hypertension Dyslipidemia Prior PCI CONCLUSIONS Triple vessel CAD of the LAD, LCX and RCA Normal LV size, wall motion,and systolic function Segmented LV systolic dysfunction- Mild LVEF: by LV gram 65 % Elevated Left Ventricular End Diastolic Pressure RECOMMENDATIONS ASA Indefinitely Management as per referring [facility] consult for coronary revascularization TR band for radial tamponade. D/w family, patient and Dr Herrera. DESCRIPTION OF PROCEDURE The patient arrived to the procedure lab. The risks and benefits of the procedure as well as a full d escription of our services here and current unavailability of surgical backup were fully explained to the patient and/or their significant other prior to the catheterization. The Timeout was completed, verifying the correct patient and procedure. The patient's procedural site was prepped and draped in the usual fashion. Local anesthetic was given subcutaneously to right radial region with Lidocaine 2% . Using a modified Seldinger technique, arterial access was obtained via the right radial artery, a 6 Fr sheath was inserted. Left Coronary Artery selective angiography was performed in multiple views u sing a 5 Fr. JL3.5 catheter. Left Coronary Artery selective angiography was performed in multiple vie ws using a 5 Fr. JL4 catheter. Right Coronary Artery selective angiography was then performed in mult iple views using a 5 Fr. JR 4 catheter. Left Ventriculography was performed in QUIJANO projection using a 5 Fr. JR4. LV to AO pullback pressures were then recorded.The arterial sheath was pulled and a TR Band was applied for hemostasis, 9cc of air CORONARY ANGIOGRAPHY DOMINANCE: Right Dominant LEFT HEART ASSESSMENT Left Ventricular Ejection Fraction: by LV Gram 65 % Apical Hypokinesis - Mild Normal Left Ventricular systolic function LVEDP: 17 mmHg Elevated Left Ventricular End Diastolic Pressure LEFT MAIN: Angiographically normal LEFT ANTERIOR DECENDING ARTERY: PROX LAD: 50 % Stenosis MID LAD: Previously placed stent is occluded DIAGONAL 2: Proximal - 50 % Stenosis CIRCUMFLEX ARTERY: MID CIRC: 70 % Stenosis RIGHT CORONARY ARTERY: MID RCA: Previously placed stent is occluded COLLATERAL FLOW: Collateral flow from Left to Left Collateral flow from Left to Right Collateral flow from Right to Right COMPLICATIONS No Complications PROCEDURE MEDICATIONS Versed 1 mg IV Fentanyl 50 mcg IV Oxygen: 2 L/min via nasal cannula Nitro Tab 0.4 mg PO 10/28/2018 14:15:10 Nitro Paste 1 in- Lt deltoid 10/28/2018 14:15:29 Verapamil 2.5mg, Ntg 100mcgs, 3000 units of Heparin 10/28/2018 13:44:05 SUMMARY OF HEMODYNAMIC DATA Time AIR REST ECG 13:21:49 AO 168/82 (114) SA 13:48:30 LV 180/-4, 17 14:06:19 LV 175/-3, 20 14:06:25 LV 137/3, 6 14:07:53 LVp 175/92, 95 14:08:16 AOp 173/89 (123) 14:08:21 Signed By Henrique Cano MD On 10/28/2018 14:40:41 Henrique Cano MD
--- NOTE | 2018-10-29 16:22 | PCM.DC.SUM ---
Discharge Date and Diagnosis Date of Admission: 10/27/18 Date of Discharge: 10/28/18 - Primary Discharge Diagnosis #1 occlusive coronary artery disease #2 unstable angina pectoris #3 hyperlipidemia #4 hypertension #5 hypokalemia - Secondary Discharge Diagnosis Chronic Problems (Last Reviewed 09/04/18 @ 16:09 by Jerson King MD) History of left heart catheterization (Chronic 10/28/18) LEFT MAIN: Angiographically normal; LEFT ANTERIOR DECENDING ARTERY: PROX LAD: 50 % Stenosis MID LAD: Previously placed stent is occluded; DIAGONAL 2: Proximal - 50 % Stenosis; CIRCUMFLEX ARTERY: MID CIRC: 70 % Stenosis; RIGHT CORONARY ARTERY: MID RCA: Previously placed stent is occluded. Refer for surgical revascularization. COLLATERAL FLOW: Collateral flow from Left to Left Collateral flow from Left to Right Collateral flow from Right to Right History of coronary artery stent placement (Chronic 07/03/07) PCI to RCA 1996; PCI/stent to LAD 1997; PCI with rotoblator /brachytherapy/in-stent restenosis to LAD 07/03/07 Essential (primary) hypertension (Chronic) BMI 35.0-35.9,adult (Chronic) Hyperlipidemia (Chronic) Atherosclerotic heart disease of [place] coronary artery without angina pectoris (Chronic) [facility] with PCI to RCA 1996; [facility] with PCI/stent to LAD 1997; [facility] 07/02/07 with rotoblator /brachytherapy/in-stent restenosis to LAD 07/03/07; [facility] 07/10/07 Hospital Course and Treatment Operations: None Procedures: 2-D Echocardiogram, Cardiac catheterization, Nuclear stress test Summary of Care Provided: The patient is a 58 year old M was seen in the emergency room at [facility] with a chief complaint of chest pain. Work-up in the emergency room included an EKG which showed a sinus rhythm and no acute ST-T wave changes, patient's chemistries were unremarkable, potassium was slightly low at 3.4, troponin was less than 0.015. Chest x-ray showed mild cardiomegaly. Patient was given potassium chloride orally in the emergency room and he was placed and observation status on PCU and cardiac enzymes were cycled. These enzymes did not elevate and the patient underwent a nuclear stress test which was positive for reversible ischemia. Cardiology saw the patient in consultation and decided to perform a cardiac catheterization which showed occlusive coronary artery disease in multiple areas including the circumflex coronary artery. It was felt that the patient would need to be transferred to a tertiary care hospital for possible cardiac bypass, patient consented to this and he was transferred to [facility] in stable condition. On examination he appeared in good health and spirits. Vital signs as documented. Skin warm and dry and without overt rashes. Neck without JVD. Lungs clear. Heart exam notable for regular rhythm, normal sounds and absence of murmurs, rubs or gallops. Abdomen unremarkable and without evidence of organomegaly, masses, or abdominal aortic enlargement. Extremities nonedematous. Neuro: Cranial nerves II through XII are grossly intact, no focal motor deficits were noted, sensation to light touch and pinprick intact. Psych: Patient is alert and oriented x3, he does not appear anxious or depressed On 10/28/2018, patient was seen and examined and felt to be stable for discharge to [facility] for further care. - Physical Exam Vital Signs Temp Pulse Resp BP Pulse Ox 98.8 F 68 16 146/71 H 95 10/28/18 15:00 10/28/18 17:00 10/28/18 17:00 10/28/18 17:00 10/28/18 17:00 Oxygen Delivery Method Room Air Weight: 135.624 kg Body Mass Index (BMI) 35.4 Intake and Output for Last 24 Hours 10/27/18 10/28/18 10/29/18 23:59 23:59 23:59 Intake Total 721 / 721 60 / 60 Balance 721 / 721 60 / 60 Home Medications: Medications to take at Discharge Citalopram [Celexa] 40 mg PO DAILY 08/11/15 Pantoprazole Sodium [Protonix] 40 mg PO BID 08/11/15 lorazepam 1 mg tablet 1 mg PO TID PRN 07/31/17 pravastatin 40 mg tablet 40 mg PO DAILY 07/31/17 aspirin 325 mg tablet 325 mg PO DAILY 01/29/18 lisinopril 20 mg-hydrochlorothiazide 25 mg tablet 1 tab PO DAILY 01/29/18 atenolol 50 mg tablet 50 mg PO DAILY 09/04/18 potassium chloride ER 10 mEq tablet,extended release 10 meq PO DAILY PRN PRN tab 09/04/18 Primary Care Physician: Guanakito Wynn DO [Primary Care Provider] - Disposition: Acute care Hospital Minutes spent on discharge:: 32 Patient Condition:: Stable Medical Necessity - Tobacco Use Smoking Status: Never smoker Meaningful Use Info Meaningful Use Diagnoses (Choose all that apply): None applicable Code Visit OBSV E&M: 96143 Observation care discharge
--- NOTE | 2018-10-29 16:26 | DS.PCM_ITS ---
Discharge Date and Diagnosis Date of Admission: 10/27/18 Date of Discharge: 10/28/18 - Primary Discharge Diagnosis #1 occlusive coronary artery disease #2 unstable angina pectoris #3 hyperlipidemia #4 hypertension #5 hypokalemia - Secondary Discharge Diagnosis Chronic Problems (Last Reviewed 09/04/18 @ 16:09 by Jerson King MD) History of left heart catheterization (Chronic 10/28/18) LEFT MAIN: Angiographically normal; LEFT ANTERIOR DECENDING ARTERY: PROX LAD: 50 % Stenosis MID LAD: Previously placed stent is occluded; DIAGONAL 2: Proximal - 50 % Stenosis; CIRCUMFLEX ARTERY: MID CIRC: 70 % Stenosis; RIGHT CORONARY ARTERY: MID RCA: Previously placed stent is occluded. Refer for surgical revascularization. COLLATERAL FLOW: Collateral flow from Left to Left Collateral flow from Left to Right Collateral flow from Right to Right History of coronary artery stent placement (Chronic 07/03/07) PCI to RCA 1996; PCI/stent to LAD 1997; PCI with rotoblator /brachytherapy/in-stent restenosis to LAD 07/03/07 Essential (primary) hypertension (Chronic) BMI 35.0-35.9,adult (Chronic) Hyperlipidemia (Chronic) Atherosclerotic heart disease of [place] coronary artery without angina pectoris (Chronic) [facility] with PCI to RCA 1996; [facility] with PCI/stent to LAD 1997; [facility] 07/02/07 with rotoblator /brachytherapy/in-stent restenosis to LAD 07/03/07; [facility] 07/10/07 Hospital Course and Treatment Operations: None Procedures: 2-D Echocardiogram, Cardiac catheterization, Nuclear stress test Summary of Care Provided: The patient is a 58 year old M was seen in the emergency room at [facility] with a chief complaint of chest pain. Work-up in the emergency room included an EKG which showed a sinus rhythm and no acute ST-T wave changes, patient's chemistries were unremarkable, potassium was slightly low at 3.4, troponin was less than 0.015. Chest x-ray showed mild cardiomegaly. Patient was given potassium chloride orally in the emergency room and he was placed and observation status on PCU and cardiac enzymes were cycled. These enzymes did not elevate and the patient underwent a nuclear stress test which was positive for reversible ischemia. Cardiology saw the patient in consultation and decided to perform a cardiac catheterization which showed occlusive coronary artery disease in multiple areas including the circumflex coronary artery. It was felt that the patient would need to be transferred to a tertiary care hospital for possible cardiac bypass, patient consented to this and he was transferred to [facility] in stable condition. On examination he appeared in good health and spirits. Vital signs as documented. Skin warm and dry and without overt rashes. Neck without JVD. Lungs clear. Heart exam notable for regular rhythm, normal sounds and absence of murmurs, rubs or gallops. Abdomen unremarkable and without evidence of organomegaly, masses, or abdominal aortic enlargement. Extremities nonedematous. Neuro: Cranial nerves II through XII are grossly intact, no focal motor deficits were noted, sensation to light touch and pinprick intact. Psych: Patient is alert and oriented x3, he does not appear anxious or depressed On 10/28/2018, patient was seen and examined and felt to be stable for discharge to [facility] for further care. - Physical Exam Vital Signs Temp Pulse Resp BP Pulse Ox 98.8 F 68 16 146/71 H 95 10/28/18 15:00 10/28/18 17:00 10/28/18 17:00 10/28/18 17:00 10/28/18 17:00 Oxygen Delivery Method Room Air Weight: 135.624 kg Body Mass Index (BMI) 35.4 Intake and Output for Last 24 Hours 10/27/18 10/28/18 10/29/18 23:59 23:59 23:59 Intake Total 721 / 721 60 / 60 Balance 721 / 721 60 / 60 Home Medications: Medications to take at Discharge Citalopram [Celexa] 40 mg PO DAILY 08/11/15 Pantoprazole Sodium [Protonix] 40 mg PO BID 08/11/15 lorazepam 1 mg tablet 1 mg PO TID PRN 07/31/17 pravastatin 40 mg tablet 40 mg PO DAILY 07/31/17 aspirin 325 mg tablet 325 mg PO DAILY 01/29/18 lisinopril 20 mg-hydrochlorothiazide 25 mg tablet 1 tab PO DAILY 01/29/18 atenolol 50 mg tablet 50 mg PO DAILY 09/04/18 potassium chloride ER 10 mEq tablet,extended release 10 meq PO DAILY PRN PRN tab 09/04/18 Primary Care Physician: Guanakito Wynn DO [Primary Care Provider] - Disposition: Acute care Hospital Minutes spent on discharge:: 32 Patient Condition:: Stable Medical Necessity - Tobacco Use Smoking Status: Never smoker Meaningful Use Info Meaningful Use Diagnoses (Choose all that apply): None applicable Code Visit OBSV E&M: 70832 Observation care discharge
== END 2018-10-28 16:22 | disposition short-term general hospital (02) ==
LOC: ED 16:34 → PCU 17:18
PROVIDERS: Internal Medicine Cardiovascular Disease; Admitting Provider Hospitalist; Emergency Provider Emergency Medicine; Family Provider Family Medicine; PCP Family Medicine; Referring Provider Hospitalist; Visit Provider Internal Medicine
DX: I25.110 Atherosclerotic heart disease of native coronary artery with unstable angina pectoris (principal); I10 Essential (primary) hypertension; Z79.899 Other long term (current) drug therapy; Z79.82 Long term (current) use of aspirin; I25.10 Atherosclerotic heart disease of native coronary artery without angina pectoris; E78.5 Hyperlipidemia, unspecified; E87.6 Hypokalemia; K21.9 Gastro-esophageal reflux disease without esophagitis; G47.33 Obstructive sleep apnea (adult) (pediatric); E66.01 Morbid (severe) obesity due to excess calories; Z68.35 Body mass index [BMI] 35.0-35.9, adult; Z71.3 Dietary counseling and surveillance
CPT/HCPCS: 36415; 71045; 78452; 80048; 80061; 84443; 84484; 85025; 85610; 85730; 93005; 93017; 93306; 93458; 96361; 96374; 99152; 99153; 99218; 99285; A9500; J7030; Q9957; Q9967; A4216; C1769; C1894; C8929; G0378

== ENCOUNTER → 2018-12-22 | Outpatient (CLI) | payer OTHER, SELFPAY ==
[2018-12-16 14:01] VITALS: BMI 34.2
--- NOTE | 2018-12-22 11:58 | CR.HP_ITS ---
CR - History & Physical - General Arrival date:: 12/22/18 Arrival time:: 12:00 Date of Referral:: 12/18/18 Date of CR Evaluation:: 12/22/18 Referring Physician: DR. HUMMEL Primary Diagnosis: CABG - History of Present Cardiac Event Onset Date: Enter Onset Date of cardiac illnesses in Comment field below Current stable Angina Pectoris:: No Acute Myocardial Infarction within 12 months:: Yes - 11/15/2018 Coronary Artery Bypass Graft:: Yes - Type of Symptoms:: CHEST PAIN, SHORTNESS OF BREATH, DIAPHORETIC, STARTED AFTER LUNCH WITH INDIGESTION AND PROGRESSED TO CHEST PRESSURE AND FULLNESS. Interventions with present event:: STRESS TEST DONE W/SCAN LEFT HEART CATH FOUND TWO FULLY OCCLUDED VESSELS. Were there any complications?: POST-OPERATIVE ATRIAL FIBRILLATION W/CARDIOVERSION AND ADDED AMIODARONE - Medications Home Medications: Ambulatory Orders Medication Instructions Recorded Citalopram [Celexa] 40 mg PO DAILY 08/11/15 lorazepam 1 mg tablet 1 mg PO TID PRN 07/31/17 pravastatin 40 mg tablet 40 mg PO DAILY 07/31/17 apixaban 5 mg tablet 5 mg PO BID #60 tab 12/10/18 amiodarone 200 mg tablet 200 mg PO DAILY 12/12/18 aspirin 81 mg tablet,delayed 81 mg PO DAILY 12/12/18 release lisinopril 20 mg tablet 20 mg PO DAILY 12/12/18 magnesium oxide 400 mg capsule 400 mg PO BID cap 12/12/18 atenolol 100 mg tablet 100 mg PO DAILY #90 tab 12/16/18 furosemide 40 mg tablet 40 mg PO DAILY #30 tab 12/16/18 pantoprazole 40 mg tablet,delayed 40 mg PO DAILY tab 12/16/18 release - Allergies Allergies/Adverse Reactions: Allergies Penicillins Allergy (Verified 09/04/18 12:39) Other - Sleep Disorder Evaluation Hx of Sleep Apnea: Yes Do you snore loudly (louder than talking or can be heard through closed doors)?: Yes Do you often feel tired/ fatigued/ sleepy during daytime?: Yes Has anyone observed you stop breathing during sleep?: Yes History of Hypertension (for STOP score): Yes STOP Results: Positive Advanced Directives - Advanced Directives Power of Physician Office Secretary: No Living Will: No Advance Directives on File: No DNR Order?:: No - MOLST See MOLST form: No Past Medical History - Past Medical Illness Medical History: Past Medical History (Last Reviewed 12/16/18 @ 14:43 by Jerson Hummel MD) Postoperative atrial fibrillation (Chronic) I97.89, I48.91 Post op atrial fib-flutter DCCV 11/12/18 Essential (primary) hypertension (Chronic) I10 Hyperlipidemia (Chronic) E78.5 Atherosclerotic heart disease of [place] coronary artery without angina pectoris (Chronic) I25.10 PCI to RCA 1996;PCI/stent to LAD 1997; PCI-rotoblator /brachytherapy/in-stent restenosis to LAD 07/03/07; Fungal dermatitis B36.9 GERD (gastroesophageal reflux disease) K21.9 Gout M10.9 Obesity E66.9 Obstructive sleep apnea G47.33 - Past Surgical History Surgical History: Past Surgical History (Last Reviewed 12/22/18 @ 12:13 by Ervin Charles CRT, FIRE RANGE TECHNICIAN, BS) H/O coronary artery bypass surgery (Resolved) Onset Date: 11/03/18 Z95.1 CABG x 3 BROWNING-LAD, SVG-D1 and SVG-OM1 11/03/18 History of coronary artery stent placement (Chronic) Onset Date: 07/03/07 Z95.5 PCI to RCA 1996; PCI/stent to LAD 1997; PCI with rotoblator /brachytherapy/in-stent restenosis to LAD 07/03/07 History of cardioversion Onset Date: 11/12/18 Z98.890 11/12/18 History of left heart catheterization Onset Date: 10/28/18 Z98.890 Surgical History: no surgical history - Family History Summary Family History: Family History (Last Updated 12/22/18 @ 12:14 by Ervin Charles CRT, FIRE RANGE TECHNICIAN, BS) Mother No problems noted. Sister No problems noted. Brother Hypertension CAD (coronary artery disease) Sister Hypertension Brother CAD (coronary artery disease) Social History - Smoking History Smoking Status: Never smoker Hx Tobacco Use: No Hx Smoking Exposure: No - Alcohol Use Alcohol Usage: No - Substance Abuse Hx Substance Use: No - Occupation Occupation (List type of work in comments):: Employed Hours worked per day:: 8 Returned to work on:: 02/01/19 - Hobbies, Recreation, Social Activities Hobbies: Other - COLLECT BOOKS, ANTIQUES AND COLLECTIBLES/SELLER Recreational Activities: I am able to engage in most, but not all activities - HAVEN'T FULL CONQUERED ALL BUT CAN DO MOST. Social Environment - Status Marital Status: - Current Living Arrangements Living Environment:: Spouse - Children How many children do you have?: 3 Do any of your children live nearby?: Yes - [place], [place], [place] and 1 at home still. - Safety Do you feel safe in your surroundings?: Yes - Assistance Do you need any assistance at home?: none Review of Systems - Review of Systems Hints: Right click = Denies ([place]). Left click = Reports ([place]) Review of Present Symptoms: Reports: Shortness of Breath with Exertion - if starts out to quickly finds he gets short of breath much faster, still maneuvering the stairs, if starts out slow does much better., Operative Discomfort, Wound Healing, Fatigue, Heart Arrhythmia/Irregularities - post- operative atrial fibrillation, Appetite - Normal - if see the right food to eat., Sleep - Normal, - - lower extremity edema and small pleural effusion by X- Ray, started on 30 days of lasix for the edema. and has lost 5-6 pounds since been back on the lasix.. Denies: Angina, Dizziness/Lightheadedness, Sexual Changes - Pain Is Patient Pain Free?: Yes Pain Location: none Risk Factor Assessment - Vital Signs Temperature: 98.7 F Respiratory Rate: 14 Pulse Ox: 92 Blood Pressure: 179/107 - Pulse Pulse Rate: 62 Pulse Rhythm: Regular - Stress Stress: Recent - Blood Cholesterol/Lipids Total Cholesterol (mg/dL) Goal = less than 200 mg/dL: 147 HDL Cholesterol (mg/dL) Goal = less than 40 mg/dL: 37 LDL Cholesterol (mg/dL) Goal = less than 70 mg/dL: 77 Triglycerides (mg/dL) Goal = less than 150 mg/dL: 166 - Obesity Height: 6 ft 5 in Weight:: 276 lb Weight in Pounds: 276.0 lbs Weight Source: Standing Scale Body Mass Index (BMI): 32.7 Nutritional Referral for Obesity: Yes - Physical Inactivity Physical Inactivity: None - Risk Stratification Risk Guidelines: Lowest Risk: Risk Factor for Smoking, Risk Factor for Dyslipidemia, Risk Factor for Diabetes, Risk Factor for Sedentary Lifestyle, Risk Factor for Depression, Highest Risk: Risk Factor for Obesity, Risk Factor for Hypertension - For Smoking Smoking Risk Guidelines: Smoking Low Risk: None or quit greater than 6 months ago. Smoking Moderate Risk: Smoker or quit 6 months or less ago. Smoking High Risk: Smoker - For Dyslipidemia Dyslipidemia Risk Guidelines: Low Risk: Moderate Risk: High Risk: 15-25% fat 25.1-29% fat >/= 30% fat. <7% sat fat 7-9% sat fat >9% sat fat. <150 mg chol 150-299 mg chol >/= 300 mg chol. LDL <100 LDL 100-129 LDL >/= 130. Chol/HDL ratio <5.0 Chol/HDL ratio 5.0-6.0 Chol/HDL ratio >6.0. Triglycerides <100 Triglycerides 100- 149 Triglycerides >/= 150 - For Diabetes Mellitus Diabetes Risk Guidelines: Diabetes Low Risk: HgA1c <6.5% and/or FBG <120. Diabetes Moderate Risk: HgA1c 6.6-7.9% and/or FBG 120-180. Diabetes High Risk: HgA1c >/= 8% and/or FBG >180 - For Obesity/Overweight Obesity/Overweight Risk Guidelines: Obesity Low Risk: BMI <25.0. Obesity Moderate Risk: BMI 25-29.9. Obesity High Risk: BMI >/= 30.0 - For Hypertension Hypertension Risk Guidelines: Hypertension Low Risk: Systolic <120 and Diastolic <80. Hypertension Moderate Risk: Systolic 120-139 and Diastolic 80-89. Hypertension High Risk: Systolic >/= 140 and Diastolic >/= 90 - For Sedentary Lifestyle Sedentary Lifestyle Risk Guidelines: Sedentary Lifestyle Low Risk: >/= 1,500 kcal/week. Sedentary Lifestyle Moderate Risk: 700-1,499 kcal/week. Sedentary Lifestyle High Risk: < 700 kcal/week - For Depression Depression Risk Guidelines: Depression Low Risk: Not clinically depressed. Depression Moderate Risk: Mildly depressed. Depression High Risk: Clinically depressed - Family History Family History: Family History (Last Updated 12/22/18 @ 12:14 by Ervin Charles, ILLUSTRATOR SET, FIRE RANGE TECHNICIAN, BS) Mother No problems noted. Sister No problems noted. Brother Hypertension CAD (coronary artery disease) Sister Hypertension Brother CAD (coronary artery disease) Motivation - Motivation to Participate On a scale of 1 to 10, how prepared are you to commit to attending program?: 10 What do you see as barriers to successfully being able to complete the program?: none What do you see as the benefits of succesfully completing the program? In other words, what do you hope to get out of participating in the program?: Confidence, more healthier than before, increased confidence of activity. Are there issues you are dealing with that will interfere with completing the program?: some shortness of breath still if start out to quickly, and stairs Do you have a spouse or signficant other, family or friends who will help support you to complete the program?: yes.
[2018-12-22 12:32] VITALS: BP 179/107; PULSE 62; RESP 14; TEMP 37.1; O2SAT 92; BMI 32.7
--- NOTE | 2018-12-22 12:35 | CR.ITP_ITS ---
General Information - General Information Admitting Diagnosis: CABG - Education/Goals Barriers to Learning: Vision Impairment Individual Counseling: Initial Assessment: Abnormal Cholesterol Levels, High Blood Pressure, Overweight/Obesity Cardiac Rehabilitation Goals: 1. Maintain the individual as the primary focus of care. 2. To improve the patient's quality of life. 3. Identification of cardiac risk factors and provide cardiac risk factor management. 4. Enhance the psychosocial status of the patient. 5. Reconditioning enough to allow the patient to resume customary activities. 6. Control symptoms of cardiac disease Scale for measuring improvement of personal goals: Enter appropriate number in Comments. 2 = Unchanged. 3 = Slightly Better. 4 = Moderate Improvement. 5 = Met my Goal Personal Goals: Initial Assessment: Improve management of stress and emotions, Improve energy level, Participate in home exercise program, Get back to work, or to resume activities faster, Improve knowledge of cardiac disease, Improve muscle strength and endurance, Improve diet and eating habits (eat healthier), Control risk factors (learn risk factor modification) Exercise - Initial Assessment - Visit Date of Eval: 12/22/18 - Stages of Change Stages of Change:: Action - Physician Prescribed Exercise Modalities: Treadmill, Airdyne, NuStep Frequency (days/week): 3x/week for 12 weeks [36 sessions] Duration (Minutes):: 30-45 Intensity: 60-80% age predicted maximum heart rate reserve METs - Progression: 0.5-1.0 MET, RPE 11-14 WEEK: 3.5 Target Heart Rate:: 104-137 - Hypertension Do any of the following apply?: Yes, Medication Resting Blood Pressure:: 168/90 - White Coat Syndrome - Intervention Home Exercise/Activity Goal:: Moderate Exercise 30 min/day x 5 days/wk - Education Goals:: Warm-up, RPE TIFFANIE Scale, S/S, Safe Exercise, Self-Monitoring - Exercise Program Goals Exercise Program Goals: Aerobic Activity >30 min Nutrition - Initial Assessment - Program Goals Nutrition Program Goals: LDL <70. Total Cholesterol <200. HDL >45. Triglycerides <150. HgbA1C <7%. BMI <25 - Visit Date of Assessment:: 12/22/18 - Stages of Change Stages of Change:: Action - Lipids Total Cholesterol (mg/dL) Goal = less than 200 mg/dL: 147 HDL Cholesterol (mg/dL) Goal = less than 45 mg/dL: 37 LDL Cholesterol (mg/dL) Goal = less than 70 mg/dL: 77 Triglycerides (mg/dL) Goal = less than 150 mg/dL: 166 - Diabetes Diabetes:: No Insulin: No Non-Insulin Dependent?: No Do you monitor your blood sugar at home?: No - Weight Management Height: 6 ft 5 in Weight:: 276 lb - Intervention Referral to dietitian:: Yes Referral to Diabetic Clinic:: No Will attend diet classes:: Yes - Education Gave educational materials for:: Healthy eating Tobacco - Initial Assessment - Program Goals Tobacco Program Goals: Complete smoking cessation. Attend education classes. Improve Knowledge Test score - Stage of Change Stages of Change:: Action - Learning Barriers Learning Barriers: Vision, Ready to Learn - Family Support Do you have family support?: Yes - Tobacco Use Tobacco Use: Non-smoker Do you use smokeless tobacco?: No - Intervention Smoking Cessation Referral:: No Individual Education/Counseling:: No Education Schedule Given:: Yes - Education Gave educational material for:: Coronary artery disease, Risk factors, Sexuality, Medical compliance, Cardiac A&P, Angina signs & symptoms Psychosocial - Initial Assess - Target Goals Target Goals: Assess presence or absence of depression. Using a valid screening tool, maximizes coping skills. Positive support system - Stages of Change Stages of Change:: Action - Psychosocial Test Tool Used:: HANDS Depression Questionnaire - Intervention PS - Interventions: Yes Attend Stress Management Classes, No Referral to Mental Health, No Referral to [facility] Case Management, No Referral to Physician, No Uses Stress Management Skills - Education Gave educational materials for:: Coping techniques, Signs & symptoms of depression, Stress management, Relaxation techniques - Patient/Program Goal Preventative Medication(s):: Aspirin, ALEJO inhibitor, Clopidogrel, Beta zeny, Statin/lipid - Assistive Devices Assistive Devices:: None Fall Risk Assessed:: Yes Patient Health Questionnaire Initial Assessment 1. Little interest or pleasure in doing things: Several days 2. Feeling down, depressed, or hopeless: Several days 3. Trouble falling or staying asleep, or sleeping too much: Not at all 4. Feeling tired or having little energy: Several days 5. Poor appetite or overeating: Several days 6. Feeling bad about yourself -- or that you are a failure or have let yourself or your family down: More than half the days 7. Trouble concentrating on things, such as reading the newspaper or watching television: Several days 8. Moving or speaking so slowly that other people could have noticed. Or the opposite - being so fidgety or restless that you have been moving around a lot more than usual: More than half the days 9. Thoughts that you would be better off , or of hurting yourself in some way: Not at all How difficult have these problems made it for you to do your work, take care of things at home, or get along with other people?: Somewhat difficult Total Score: 9 SANTINO-Q SV Test - Statements CAD is a disease of the arteries in the heart: False Examples of risk factors for heart disease: True Angina is chest pain or discomfort: True The benefits of resistance training include: True Eating more meat and dairy products: False Anti-platelet medications such as aspirin are important: True The only effective way to manage stress: False An exercise warm-up slowly increases heart rate: True Prepared, processed foods usually have high sodium: True Depression is common after a heart attack: True The statin medications lower cholesterol: True To control blood pressure, lower the amount of sodium: True If someone gets chest discomfort during walking: False Transfats are partially hydrogenated vegetable oils: True Sleep apnea that is not treated increases the risk: False To control cholesterol, one should become a vegetarian: False Someone knows if he/she is exercising at the right level: True Diabetes cannot be prevented with exercise & health eating: False Stress is a large risk for heart attack: True A diet that can help lower blood pressure is rich in: True - Total Score Total Correct Responses: 20 Self-Efficacy Initial Assessment We would like to know how confident you are in doing certain activities. Please select your confidence level for:: Select your confidence level for the following using the scale 1-10 where 1 is not at all confident and 10 is totally confident. Your score is the average of all 6 responses. Fatigue: How confident are you that you can keep the fatigue caused by your disease from interfering with the things you want to do? Select Number: 10 Physical Discomfort or Pain: How confident are you that you can keep the physical discomfort or pain of your disease from interfering with the things you want to do? Select Number: 10 Emotional Distress: How confident are you that you can keep the emotional distress caused by your disease from interfering with the things you want to do? Select Number: 7 Other Symptoms or Health Problems: How confident are you that you can keep other symptoms or health problems from interfering with the things you want to do? Select Number: 10 Different Tasks and Activities: How confident are you that you can do the different tasks and activities needed to manage your health condition so as to reduce your need to see a doctor? Select Number: 10 Medication: How confident are you that you can do things other than just taking medication to reduce how much your illness affects your everyday life? Select Number: 10 Total Score:: 9 Nutrition Survey - Nutrition Survey Instructions Scoring Instructions: Scoring is as follows: Yes = 1 points. No = 0 point. Patient score that is >/=12 is considered to be at potential nutritional risk and could benefit from a referral to a registered dietitian. - Nutrition Survey Initial Have you lost >10 lbs over the past 2 months without trying?: Yes Are you following a special diet at home for diabetes, low fat, or low salt?: Yes Are you interested in meeting with a dietitian for help understanding your diet?: Yes Do you eat less than 3 meals a day?: No Do you eat fatty meats (lieberman, sausage, ribs, etc), fried foods, desserts, large amounts of salad dressings, margarine, butter, or cheese most days?: Yes Do you have food allergies? [Enter types in comment field]: No Do you eat in restaurants more than 3 times a week?: No Do you season food with salt, seasoning salt, or garlic salt?: No Do you used canned, boxed, frozen meals, or soups, seasoning packets?: No - Patient is interested in the [facility] structured weight loss program. Total Score:: 4
[2018-12-22 13:17] VITALS: BP 168/90
== END | disposition home or self-care (01) ==
LOC: CR 11:50
PROVIDERS: Family Provider Family Medicine; PCP Family Medicine; Referring Provider Internal Medicine Cardiovascular Disease; Visit Provider Internal Medicine Cardiovascular Disease
DX: I25.10 Atherosclerotic heart disease of native coronary artery without angina pectoris (principal); I48.91 Unspecified atrial fibrillation; I10 Essential (primary) hypertension; E78.5 Hyperlipidemia, unspecified; K21.9 Gastro-esophageal reflux disease without esophagitis; M10.9 Gout, unspecified; E66.9 Obesity, unspecified; G47.33 Obstructive sleep apnea (adult) (pediatric); Z95.1 Presence of aortocoronary bypass graft; Z79.82 Long term (current) use of aspirin; Z79.899 Other long term (current) drug therapy

== ENCOUNTER 2018-12-25 14:26 | Outpatient (RCR) | payer OTHER, SELFPAY ==
[2018-12-22 12:32] VITALS: BMI 32.7
== END 2018-12-27 23:59 ==
LOC: CR 14:26
PROVIDERS: Family Provider Family Medicine; PCP Family Medicine; Referring Provider Internal Medicine Cardiovascular Disease; Visit Provider Internal Medicine Cardiovascular Disease
DX: E78.5 Hyperlipidemia, unspecified (principal); I10 Essential (primary) hypertension; I97.89 Other postprocedural complications and disorders of the circulatory system, not elsewhere classified; I48.91 Unspecified atrial fibrillation; I25.10 Atherosclerotic heart disease of native coronary artery without angina pectoris; Z95.1 Presence of aortocoronary bypass graft
CPT/HCPCS: 93798

== ENCOUNTER → 2018-12-25 | Outpatient (CLI) | payer OTHER, SELFPAY ==
[2018-12-22 12:32] VITALS: BMI 32.7
--- NOTE | 2018-12-25 14:00 | RAD_ITS ---
STUDY: X-RAY CHEST REASON FOR EXAM: Male, 58 years old. Pleural effusion TECHNIQUE: PA and lateral chest COMPARISON: 10/27/2018 FINDINGS: Minimal right, small left layering pleural effusion, mild right lung base atelectasis, lungs otherwise clear with no apparent pulmonary edema or vascular congestion. Background pulmonary features suggest the presence of COPD. Correlate smoking history. Mild cardiomegaly. Normal mediastinal silhouette, vianey and pleural margins. Median sternotomy. No acute osseous or upper abdominal process. Osteopenia, thoracal lumbar S-shaped scoliosis with multilevel spondylosis. RAD/Chest PA and Lateral IMPRESSION: Small right greater than left effusions, right lung base atelectasis. Electronically Signed: Jay Liao MD at 16:30 EDT Tel , Service support ,
== END | disposition home or self-care (01) ==
LOC: RAD 13:55
PROVIDERS: Family Provider Family Medicine; PCP Family Medicine; Visit Provider Internal Medicine Cardiovascular Disease
DX: E78.5 Hyperlipidemia, unspecified (principal); Z95.1 Presence of aortocoronary bypass graft; I10 Essential (primary) hypertension; I97.89 Other postprocedural complications and disorders of the circulatory system, not elsewhere classified; I48.91 Unspecified atrial fibrillation
CPT/HCPCS: 71046

== ENCOUNTER → 2019-01-04 | Outpatient (CLI) | payer OTHER, SELFPAY ==
[2018-12-22 12:32] VITALS: BMI 32.7
--- NOTE | 2019-01-04 14:42 | RAD_ITS ---
STUDY: X-RAY CHEST REASON FOR EXAM: Male, 58 years old. Follow-up pleural effusion TECHNIQUE: Frontal and lateral views of the chest COMPARISON: 12/25/2018 FINDINGS: There are stable small bilateral pleural effusions with overlying atelectasis. There are no focal infiltrates The heart is stable in size. Again noted are sternotomy wires. The visualized osseous structures are within normal limits. RAD/Chest PA and Lateral IMPRESSION: Stable exam. Electronically Signed: Kelvin Silver, at 15:17 EDT Tel , Service support ,
== END | disposition home or self-care (01) ==
LOC: RAD 14:40
PROVIDERS: Family Provider Family Medicine; PCP Family Medicine; Referring Provider Internal Medicine Cardiovascular Disease; Visit Provider Internal Medicine Cardiovascular Disease
DX: I97.89 Other postprocedural complications and disorders of the circulatory system, not elsewhere classified (principal); I48.91 Unspecified atrial fibrillation; Z95.1 Presence of aortocoronary bypass graft; Z95.5 Presence of coronary angioplasty implant and graft; I10 Essential (primary) hypertension; E78.5 Hyperlipidemia, unspecified; I25.10 Atherosclerotic heart disease of native coronary artery without angina pectoris
CPT/HCPCS: 71046

== ENCOUNTER 2019-01-18 11:33 | Outpatient (RCR) | payer OTHER, SELFPAY ==
[2018-12-22 12:32] VITALS: BMI 32.7
[2019-01-11 15:44] VITALS: BMI 32.7
== END 2019-01-18 23:59 | disposition home or self-care (01) ==
LOC: NS 11:33
PROVIDERS: Family Provider Family Medicine; PCP Family Medicine; Visit Provider Internal Medicine Cardiovascular Disease
DX: E66.9 Obesity, unspecified (principal); I10 Essential (primary) hypertension; E78.5 Hyperlipidemia, unspecified; K21.9 Gastro-esophageal reflux disease without esophagitis; Z71.3 Dietary counseling and surveillance
CPT/HCPCS: 97802

== ENCOUNTER → 2019-01-18 | Outpatient (CLI) | payer OTHER, SELFPAY ==
[2019-01-11 15:44] VITALS: BMI 32.7
[2019-01-18 08:02] LABS: Absolute Lymphocyte Count 1.86 X10^3/uL (0.83-4.51); Absolute Neutrophil Count 7.9 X10^3/uL (2.0-7.7); Basophil# 0.05 X10^3/uL; Basophil% 0.5 % (0-1); Eosinophil# 0.22 X10^3/uL; Hematocrit 41.5 % (40-54); Hemoglobin 12.9 g/dL (13.0-16.5); Lymphocyte # 1.86 X10^3/ul (4.0); Lymphocyte % 16.8 % (19-41); Mean Corp Hgb Conc 31.1 g/dL (32-36); Mean Corpuscular Hgb 26.5 pg (27.0-32.0); Mean Corpuscular Volume 85.4 fL (80-94); Monocyte# 0.98 X10^3/uL; Monocyte% 8.8 % (0-10); NRBC Flagged by Analyzer 0 % (0-5); Neutrophil # 7.94 X10^3/uL (2.7-7.7); Neutrophil % 71.5 % (47-70); Platelet Count 249 K/mm3 (150-450); RBC Distribution Width CV 13.8 % (11.6-14.6); Red Blood Count 4.86 M/mm3 (4.6-6.2); White Blood Count 11.1 K/mm3 (4.4-11.0)
[2019-01-18 08:33] LABS: ALB/GLOB Ratio 0.9 RATIO (0.9-2.4); AST(SGOT) 14 U/L (15-37); Alanine Aminotransfer ALT/SGPT 20 U/L (16-61); Albumin, Serum 3.8 g/dL (3.2-5.0); Alkaline Phosphatase 81 U/L (45-117); Anion Gap 5 (5-15); BUN 18 mg/dL (7-18); BUN/Creat Ratio 16.2 RATIO (10-20); Calcium,Total 9.1 mg/dL (8.5-10.1); Chloride 104 mmol/L (98-107); Cholesterol 125 mg/dL (200); Creatinine, Serum 1.11 mg/dL (0.70-1.30); EST Glomerular Filtration Rate 72 mL/min (>60); Est Glom Filt Rate - Afr Amer 87 mL/min (>60); Globulin 4.3 g/dL (2.2-4.2); Glucose 101 mg/dL (74-106); High Density Lipoprotein 48 mg/dL; PSA,Total - Annual Screen 1.59 ng/mL (0.00-4.00); Protein, Total 8.1 g/dL (6.4-8.2); Sodium Level 136 mmol/L (136-145); Triglycerides 95 mg/dL; Uric Acid 6.9 mg/dL (3.5-7.2); Very Low Density Lipoprotein 19 mg/dL (5-40)
== END | disposition home or self-care (01) ==
LOC: LAB.FUTURE 07:33
PROVIDERS: Family Provider Family Medicine; PCP Family Medicine; Referring Provider Family Medicine; Visit Provider Family Medicine
DX: Z00.00 Encounter for general adult medical examination without abnormal findings (principal); I10 Essential (primary) hypertension; I25.10 Atherosclerotic heart disease of native coronary artery without angina pectoris; M10.9 Gout, unspecified; Z12.5 Encounter for screening for malignant neoplasm of prostate
CPT/HCPCS: 36415; 80053; 80061; 84153; 84550; 85025; G0103

== ENCOUNTER 2019-01-27 13:00 | Outpatient (RCR) | payer OTHER, SELFPAY ==
[2018-12-22 12:32] VITALS: BMI 32.7
== END 2019-01-27 23:59 ==
LOC: CR 13:00
PROVIDERS: Family Provider Family Medicine; PCP Family Medicine; Referring Provider Internal Medicine Cardiovascular Disease; Visit Provider Internal Medicine Cardiovascular Disease
DX: E78.5 Hyperlipidemia, unspecified (principal); Z95.1 Presence of aortocoronary bypass graft; I10 Essential (primary) hypertension; I97.89 Other postprocedural complications and disorders of the circulatory system, not elsewhere classified; I48.91 Unspecified atrial fibrillation; I25.10 Atherosclerotic heart disease of native coronary artery without angina pectoris
CPT/HCPCS: 93798

== ENCOUNTER 2019-01-29 09:00 | Outpatient (RCR) | payer OTHER, SELFPAY ==
[2019-01-27 15:03] VITALS: BMI 32.5
== END 2019-02-03 11:15 | disposition home or self-care (01) ==
LOC: CR 09:00
PROVIDERS: Family Provider Family Medicine; PCP Family Medicine; Referring Provider Internal Medicine Cardiovascular Disease; Visit Provider Internal Medicine Cardiovascular Disease
DX: I25.10 Atherosclerotic heart disease of native coronary artery without angina pectoris (principal); E78.5 Hyperlipidemia, unspecified; I48.91 Unspecified atrial fibrillation; I97.89 Other postprocedural complications and disorders of the circulatory system, not elsewhere classified; Z95.1 Presence of aortocoronary bypass graft
CPT/HCPCS: 93798

== ENCOUNTER → 2019-03-03 13:32 | Outpatient (CLI) | payer OTHER, SELFPAY ==
[2019-01-27 15:03] VITALS: BMI 32.5
--- NOTE | 2019-03-03 13:40 | RAD_ITS ---
STUDY: X-RAY CHEST REASON FOR EXAM: Male, 59 years old. Follow-up pleural effusion. TECHNIQUE: Frontal and lateral views of the chest COMPARISON: 01/04/2019 FINDINGS: The lungs are clear. There are no pleural effusions. There is no pneumothorax. The heart is normal in size. Again noted are sternotomy wires. The visualized osseous structures are within normal limits. RAD/Chest PA and Lateral IMPRESSION: Clear lungs. Electronically Signed: Kelvin Silver, at 18:51 EDT Tel , Service support ,
== END ==
PROVIDERS: Family Provider Family Medicine; PCP Family Medicine; Referring Provider Family Medicine; Visit Provider Family Medicine
DX: J90 Pleural effusion, not elsewhere classified (principal)
CPT/HCPCS: 71046

== ENCOUNTER → 2019-03-04 08:50 | Outpatient (CLI) | payer OTHER, SELFPAY ==
[2019-01-27 15:03] VITALS: BMI 32.5
--- NOTE | 2019-03-04 12:19 | PFTCOMP ---
COMPLETE PULMONARY FUNCTION TEST INTERPRETATION Brief HPI: Patient is a 59 year old male, currently under the care of Dr. King, who presents to [facility] for complete pulmonary function tests secondary to diagnosis of CAD. Respiratory therapist reports good effort and reproducible results. Interpretation: Forced expiration spirometry shows no large airways obstructive ventilatory defect with an FEV1 of 70% predicted. There is no significant bronchodilator response by strict ATS criteria. Spirograms are of good quality and plateau slowly, indicating slowly emptying areas of the lungs. The respiratory flow volume loop shows decreased expiratory flow rates at high lung volumes consistent with small airways obstruction. Lung volumes by body plethysmography show a normal total lung capacity at 7.57 L, 91% predicted. All other lung volumes are within normal limits. Diffusion capacity by carbon monoxide is normal at 82% predicted. The airway resistance is elevated. No previous pulmonary function tests were available for review. Impression: Moderate obstructive ventilatory defect with preserved diffusion capacity in a pattern consistent with chronic bronchitis
== END ==
PROVIDERS: Family Provider Family Medicine; PCP Family Medicine; Referring Provider Internal Medicine Cardiovascular Disease; Visit Provider Internal Medicine Cardiovascular Disease
DX: I25.10 Atherosclerotic heart disease of native coronary artery without angina pectoris (principal); I10 Essential (primary) hypertension; Z95.1 Presence of aortocoronary bypass graft; Z95.5 Presence of coronary angioplasty implant and graft; E78.5 Hyperlipidemia, unspecified
CPT/HCPCS: 94060; 94726; 94729

== ENCOUNTER → 2019-05-14 16:42 | Outpatient (CLI) | payer OTHER, SELFPAY ==
[2019-04-30 11:25] VITALS: BMI 32.5
--- NOTE | 2019-05-14 16:45 | US_ITS ---
STUDY: SUPERFICIAL ULTRASOUND - LEFT THIGH REASON FOR EXAM: Male, 59 years old. Palpable lump TECHNIQUE: A superficial ultrasound was performed with real-time and static srivastava-scale imaging. COMPARISON: None. FINDINGS: The site of the clinically palpable lump is a 1.5 x 1 x 0.8 cm solid nodule which is primarily hyperechoic with central hypoechoic density. Etiology is indeterminate. This could represent a small hematoma or atypical lymph node. Sonographic guided fine-needle aspiration would be helpful for further assessment if clinically warranted US/Ext Non Vasc Limited/Soft Tiss IMPRESSION: Nonspecific solid nodule in the left upper thigh measuring 1.5 x 1 x 0.8 cm Electronically Signed: Jason Faulkner MD at 18:14 EST , Service support ,
== END ==
PROVIDERS: Family Provider Family Medicine; PCP Family Medicine; Referring Provider Family Medicine; Visit Provider Family Medicine
DX: R22.42 Localized swelling, mass and lump, left lower limb (principal)
CPT/HCPCS: 76882

== ENCOUNTER → 2019-08-02 11:59 | Outpatient (CLI) | payer OTHER, SELFPAY ==
[2019-06-01 13:16] VITALS: BMI 32.5
--- NOTE | 2019-08-02 12:03 | US_ITS ---
STUDY: ABDOMINAL ULTRASOUND - RIGHT UPPER QUADRANT REASON FOR VISIT: Male, 59 years old SLIDING /PULLING SENSATION IN THE EPIGASTRIC AREA/SOFT TISSUE TECHNIQUE: Ultrasound evaluation of the right upper quadrant was performed with real-time and static srivastava-scale imaging. TECHNICAL QUALITY: Adequate. COMPARISON: None. FINDINGS/ US/Abdomen Limited IMPRESSION: Targeted sonographic evaluation of the epigastrium demonstrates no focal sonographic abnormality. No focal mass is seen. Electronically Signed: Hernandez Rios, at 20:04 EST Tel , Service support ,
== END ==
PROVIDERS: PCP Family Medicine; Referring Provider Family Medicine; Visit Provider Family Medicine
DX: R10.9 Unspecified abdominal pain (principal)
CPT/HCPCS: 76705

== ENCOUNTER → 2019-08-06 16:23 | Outpatient (CLI) | payer OTHER, SELFPAY ==
[2019-06-01 13:16] VITALS: BMI 32.5
== END ==
PROVIDERS: PCP Family Medicine; Referring Provider Internal Medicine Cardiovascular Disease; Visit Provider Internal Medicine Cardiovascular Disease
DX: I25.10 Atherosclerotic heart disease of native coronary artery without angina pectoris (principal); Z95.1 Presence of aortocoronary bypass graft; I10 Essential (primary) hypertension; E78.5 Hyperlipidemia, unspecified; I48.92 Unspecified atrial flutter; R00.2 Palpitations
CPT/HCPCS: 93225; 93226

== ENCOUNTER 2019-12-27 08:48 | Emergency (ER) | payer OTHER, SELFPAY ==
[2019-12-27 08:43] VITALS: BMI 35.3
[2019-12-27 08:50] VITALS: BP 190/102; PULSE 72; RESP 16; TEMP 36.1; O2SAT 94; BMI 35.5
--- NOTE | 2019-12-27 09:27 | EKG12_ITS ---
Test Reason : HYPERENSION Blood Pressure : / mmHG Vent. Rate : 059 BPM Atrial Rate : 059 BPM P-R Int : 166 ms QRS Dur : 092 ms QT Int : 470 ms P-R-T Axes : 007 004 025 degrees QTc Int : 465 ms Sinus bradycardia Inferior infarct , age undetermined Abnormal ECG Confirmed by KIM JEAN ([id number]), fan mail editor ALMA ROSA JUÁREZ ([id number]) on 12/30/2019 11:55:05 AM Referred By: JEAN Confirmed By:KIM JEAN
--- NOTE | 2019-12-27 09:27 | CT_ITS ---
STUDY: CT BRAIN WITHOUT CONTRAST REASON FOR EXAM: Male, 59 years old. ALICIA/HTN/STARTED NEW BP MEDS RADIATION DOSAGE (If Supplied By Facility): CTDIvol = ( 44.99 ) mGy, DLP = ( 897.35 ) mGycm TECHNIQUE: Transaxial CT imaging of the brain was performed without administration of intravenous contrast material. Individualized dose optimization techniques were used for this CT. COMPARISON: No relevant priors. FINDINGS: Normal soft tissue structures. Normal calvarium. There is mild cerebral atrophy with widening of the extra-axial spaces and ventricular dilatation. Normal white matter tracts of the cerebral hemispheres. Normal basal ganglia and thalami. Normal brainstem. Normal cerebellum. There is no intracranial hemorrhage. There are no findings of an acute ischemic infarction. Atherosclerotic calcification of the vertebral arteries and cavernous portions of the internal carotid arteries bilaterally. Normal visualized paranasal sinuses. CT/Brain/Head without Contrast IMPRESSION: Chronic involutional changes of the brain. Electronically Signed: Darci Pineda, at 10:28 EDT , Service support ,
--- NOTE | 2019-12-27 09:37 | ED.DCSUM_ITS ---
History of Present Illness Chief Complaint: Headache Informant: Patient Onset: Weeks Context: Gradual Onset Timing: Intermittent Narrative: Patient is a 59-year-old male with history of coronary artery disease, hypertens ion, hyperlipidemia status post CABG 1 year ago presenting with hypertension and headache. Patient states he has had intermittent headaches for the past 2 weeks. He has been taking ibuprofen with intermittent relief of his headaches. Patient notes his blood pressure has been higher and his web operations specialist increased his lisinopril/HCTZ to 40/25 at the beginning of this month. He states he has had 2 weeks of intermittent headaches. They are in his temples and over his forehead. Patient also notes he is had pain in his bilateral neck well some pain rating down his back. He notes that 2 weeks ago he had dental work where he had to have his mouth open for about 2 and half hours and was laying back in the chair. His headaches seem to start after that. Patient went to the now clinic today to be evaluated and his blood pressure was significantly elevated so they sent him to the emergency room for concern of hypertensive urgency. Patient also states he is been concerned that there is a possible he could have a brain tumor. He denies any vision changes or any other neurologic symptoms. He notes that he does not have any family history of any brain cancer or tumors. Patient is not on any anticoagulation. He states the headache is intermittent and is not the worst headache of his life. Patient has any associated chest pain, leg swelling or difficulty breathing. Nuys any change with urination. 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 Patient did reach out to the counseling center for psychiatric help as well. He states he feels safe at home but is just been more anxious lately. Prior similar symptoms: No Past Medical History - Allergies and Home Meds Allergies/Adverse Reactions: Allergies Penicillins Allergy (Verified 12/27/19 08:50) Other Primary Care Physician: Guanakito Wynn DO [Primary Care Provider] - Past Medical History: - - Coronary artery disease, hypertension, hyperlipidemia Surgical History: coronary bypass surgery Lives: Spouse/ Significant Other Smoking Status: Never smoker - Family History Maternal Family History: Family History (Last Reviewed 12/27/19 @ 08:43 by Latha Trejo) Mother No problems noted. Sister No problems noted. Brother Hypertension CAD (coronary artery disease) Sister Hypertension Brother CAD (coronary artery disease) Father Emphysema of lung Family History: Reports: No pertinent history Paternal Family History: Family History (Last Reviewed 12/27/19 @ 08:43 by Latha Trejo) Mother No problems noted. Sister No problems noted. Brother Hypertension CAD (coronary artery disease) Sister Hypertension Brother CAD (coronary artery disease) Father Emphysema of lung Family History: Reports: No pertinent history Review of Systems General: Denies: Chills, Fever, Sweats Eyes: Denies: Visual changes - bilaterally, Diplopia ENT: Denies: Rhinorrhea, Sore throat Cardiovascular: Denies: Chest pain, Palpitations Respiratory: Denies: Dyspnea, Cough, Dyspnea on exertion Gastrointestinal: Denies: Abdominal pain, Nausea, Vomiting, Diarrhea, Melena, Hematochezia Genitourinary: Denies: Dysuria, Hematuria, Frequency Musculoskeletal: Denies: Back pain, Extremity Pain Skin: Denies: Rash, Wounds Neurological: Reports: Headache. Denies: Weakness, Numbness Psych: Reports: Anxiety. Denies: Depression, Suicidal thoughts, Suicidal ideations Physical Exam Vital Signs/Narrative: Vital Signs Temp Pulse Resp BP Pulse Ox 12/27/19 08:50 97 F L 72 16 190/102 H 94 Inital Vital Signs reviewed: Yes General: Well nourished, Well developed, No Acute Distress Head: Normocephalic, Atraumatic Eyes: Perrl, EOMI ENT: Moist mucous membranes, No rhinorrhea, TM's clear, - - Tenderness to palpation of the TMJ or temples bilaterally Neck: Supple, No lymphadenopathy, No JVD, - - Mild bilateral paraspinal tenderness palpation with associated tenderness of the trapezius Cardiovascular: Regular rate, Regular rhythm, No murmurs Respiratory: No distress, CTA bilaterally, Chest nontender Abdomen: Soft, Nontender, Nondistended, Normal bowel sounds Back: Nontender, Normal Inspection. Negative for: Spinal tenderness Extremities: Nontender, No edema Skin: Normal color, No rash Neurological: Alert, Oriented x3, Cranial nerves II-XII grossly intact, Normal Strength, Normal Sensation, Normal Gait. Negative for: Parasthesia, Weakness Psychological: Normal affect, Normal Mood Diagnostic/Tx/Re-eval Clinical Impression(s) from Imaging Studies Brain CT 12/27/19 09:27 IMPRESSION: Chronic involutional changes of the brain. Electronically Signed: Darci Pineda, at 10:28 EDT , Service support , Laboratory Data 12/27/19 12/27/19 12/27/19 09:40 09:40 10:35 WBC 7.2 RBC 5.02 Hgb 14.5 Hct 44.0 MCV 87.6 MCH 28.9 MCHC 33.0 RDW Std Deviation 41.2 RDW Coeff of Rosalba 13.2 Plt Count 183 MPV 11.5 Immature Gran % (Auto) 0.300 Neut % (Auto) 70.5 H Lymph % (Auto) 16.8 L [place] % (Auto) 9.9 Eos % (Auto) 1.8 Baso % (Auto) 0.7 Absolute Neuts (auto) 5.1 Absolute Lymphs (auto) 1.21 Nucleated RBC % 0 ESR 8 Sodium 138 Potassium 3.3 L Chloride 101 Carbon Dioxide 31.0 Anion Gap 6 BUN 15 Creatinine 1.19 Estim Creat Clear Calc 83.19 Est GFR (MDRD) Af Amer 80 Est GFR (MDRD) Non-Af 66 BUN/Creatinine Ratio 12.6 Glucose 117 H Calcium 9.0 Troponin I < 0.015 C-React Prot Ext Range < 2.90 Urine Color Yellow Urine Clarity Sl. Cloudy Urine pH 6.0 Ur Specific [place] 1.015 Urine Protein Negative Urine Glucose (UA) Normal Urine Ketones Negative Urine Occult Blood Negative Urine Nitrite Negative Urine Bilirubin Negative Urine Urobilinogen Normal Ur Leukocyte Esterase Negative Urine RBC 0 SEEN Urine WBC 0 SEEN Ur Squamous Epith Cells 0 SEEN Urine Bacteria RARE Urine Mucus 0 SEEN - Rhythm Strip Rhythm Strip: Sinus Rhythm Rate: 59 Ectopy: None - EKG Initial EKG Interpretation: Sinus Bradycardia, - - Rated cardia at a rate of 59 Normal axis Normal intervals Nonspecific T wave inversion in lead III No dynamic EKG changes concerning for ACS - Medical Decision Making Valuated for headache that is been having off and on for the past 2 weeks. In addition his blood pressure was quite elevated when he went to urgent care today so he is concerned about his blood pressure. Patient is a normal neurologic exam. Nuys any head trauma. He states he is concerned he might have a brain tumor even though he has no reason to think that. His headache really seems to be more of a tension headache. Given that he was hypertensive with a history of heart disease, I did check basic labs as well as a head CT to rule out signs of hypertensive emergency. These are all negative. Patient not having dynamic EKG changes concerning for ACS. His troponin is negative. He does have a headache that is in his temples I did check a CRP and ESR for possibility of temporal arteritis. These were negative. Patient is on any signs of acute kidney injury. He does have paraspinal muscle tenderness. I suspect this is all tension headache. Patient will continue to alternate Tylenol and ibuprofen and we placed on Flexeril. He states he is taking in the past. He will be given a work note for today. Patient is counseled on signs and symptoms require return the emergency room. He verbalizes agreement understanding with this plan. He is discharged home in improved and stable condition. Patient's headache resolved with Tylenol and fluids. I do not suspect meningitis. ED Disposition - Plan for ED Patient: Disposition: Home or Assisted Living Diagnosis: Tension headache, Essential (primary) hypertension Instructions: ED Headache Unspecified Prescriptions: cycloBENZAPRine HCl [Flexeril] 10 mg PO TID PRN PRN #20 tab PRN Reason: neck pain Prescription Printed Referrals: Guanakito Wynn DO [Primary Care Provider] -
[2019-12-27 09:47] VITALS: BP 145/87; PULSE 63; RESP 12; O2SAT 94
[2019-12-27] MEDS: Acetaminophen 325 MG Tablet 650 MG PO (09:59)
[2019-12-27] MEDS: 0.9% Normal Saline 1,000 ML 1000 ML IV (09:59)
[2019-12-27 10:28] LABS: Absolute Lymphocyte Count 1.21 X10^3/uL (0.83-4.51); Absolute Neutrophil Count 5.1 X10^3/uL (2.0-7.7); Basophil# 0.05 X10^3/uL; Basophil% 0.7 % (0-1); Eosinophil# 0.13 X10^3/uL; Eosinophils% 1.8 % (0-5); Hemoglobin 14.5 g/dL (13.0-16.5); Lymphocyte # 1.21 X10^3/ul (4.0); Lymphocyte % 16.8 % (19-41); Mean Corpuscular Hgb 28.9 pg (27.0-32.0); Mean Corpuscular Volume 87.6 fL (80-94); Mean Platelet Vol. 11.5 fl (6.2-12.0); Monocyte# 0.71 X10^3/uL; Monocyte% 9.9 % (0-10); NRBC Flagged by Analyzer 0 % (0-5); Neutrophil # 5.08 X10^3/uL (2.7-7.7); Neutrophil % 70.5 % (47-70); Platelet Count 183 K/mm3 (150-450); RBC Distribution Width CV 13.2 % (11.6-14.6); RBC Distribution Width SD 41.2 fl (35.1-43.9); Red Blood Count 5.02 M/mm3 (4.6-6.2); White Blood Count 7.2 K/mm3 (4.4-11.0)
[2019-12-27 10:45] LABS: Mucous, Urine 0 SEEN /hpf (<or=2+); Red Blood Cells-Urine 0 SEEN /hpf (0-5); Squamous Epithelial Cells - UA 0 SEEN /hpf (0-5); White Blood Cells 0 SEEN /hpf (0-5)
[2019-12-27 10:45] LABS: Anion Gap 6 (5-15); BUN 15 mg/dL (7-18); BUN/Creat Ratio 12.6 RATIO (10-20); CRP < 2.90 mg/L (0.0-3.0); Chloride 101 mmol/L (98-107); Creatinine, Serum 1.19 mg/dL (0.70-1.30); EST Glomerular Filtration Rate 66 mL/min (>60); Est Glom Filt Rate - Afr Amer 80 mL/min (>60); Estimated Creatinine Clearance 83.19 ml/min; Glucose 117 mg/dL (74-106); Potassium 3.3 mmol/L (3.5-5.1); Sodium Level 138 mmol/L (136-145)
[2019-12-27 10:46] LABS: Color, Urine Yellow (Yellow); Glucose, Dipstick Normal (Normal); Ketone-Dipstick Negative (Negative); Leukocyte Esterase-Dipstick Negative /ul (Negative); Nitrite-Dipstick Negative (Negative); Occult Blood-Urine Negative /ul (Negative); Protein-Dipstick Negative (Negative); Specific Gravity, Urine 1.015 (1.002-1.030); Urine Bilirubin Dipstick Negative (Negative); Urine Clarity Sl. Cloudy (Clear); Urine Urobilinogen Normal (Normal)
[2019-12-27 10:50] LABS: Erythrocyte Sedimentation Rate 8 mm/hr (0-20)
[2019-12-27 10:52] LABS: Bacteria RARE /hpf (None Seen)
[2019-12-27 11:00] VITALS: BP 157/89; PULSE 67; RESP 18; O2SAT 94
[2019-12-27] MEDS: Ketorolac 15 MG/ML Vial IV (11:22)
[2019-12-27 11:24] VITALS: BP 132/95; PULSE 58; RESP 18; O2SAT 96
== END 2019-12-27 11:55 | disposition home or self-care (01) ==
PROVIDERS: Emergency Provider Emergency Medicine; PCP Family Medicine
DX: G44.209 Tension-type headache, unspecified, not intractable (principal); I10 Essential (primary) hypertension; I25.10 Atherosclerotic heart disease of native coronary artery without angina pectoris; E78.5 Hyperlipidemia, unspecified; Z95.1 Presence of aortocoronary bypass graft; Z79.82 Long term (current) use of aspirin; Z79.899 Other long term (current) drug therapy
CPT/HCPCS: 70450; 80048; 81001; 84484; 85025; 85652; 86140; 93005; 96361; 96374; 99285; J7030; A4216

== ENCOUNTER 2020-09-08 09:58 | Outpatient (RCR) | payer OTHER, SELFPAY ==
[2020-09-08] MEDS: COVID-19 VACC, MRNA(PFIZER)/PF 30 MCG/0.3 ML SYRINGE IM (14:00)
[2020-09-29] MEDS: COVID-19 VACC, MRNA(PFIZER)/PF 30 MCG/0.3 ML SYRINGE IM (13:36)
== END 2020-12-05 23:59 ==
LOC: IMMUN 09:58
PROVIDERS: PCP Family Medicine; Visit Provider Family Medicine
DX: Z23 Encounter for immunization (principal)
CPT/HCPCS: 0001A; 0002A; 91300

== ENCOUNTER → 2020-12-06 15:21 | Outpatient (CLI) | payer OTHER, SELFPAY ==
[2020-12-06 16:25] LABS: Color, Urine Yellow (Yellow); Glucose, Dipstick Normal (Normal); Ketone-Dipstick Negative (Negative); Leukocyte Esterase-Dipstick Negative /ul (Negative); Nitrite-Dipstick Negative (Negative); Occult Blood-Urine Negative /ul (Negative); Protein-Dipstick Negative (Negative); Specific Gravity, Urine 1.005 (1.002-1.030); Urine Bilirubin Dipstick Negative (Negative); Urine Clarity Clear (Clear); Urine Urobilinogen Normal (Normal)
[2020-12-06 16:36] LABS: Absolute Lymphocyte Count 1.63 X10^3/uL (0.83-4.51); Basophil# 0.06 X10^3/uL; Basophil% 0.7 % (0-1); Eosinophil# 0.14 X10^3/uL; Eosinophils% 1.6 % (0-5); Hematocrit 43.1 % (40-54); Hemoglobin 14.3 g/dL (13.0-16.5); Lymphocyte # 1.63 X10^3/ul (0.83-4.51); Lymphocyte % 18.6 % (19-41); Mean Corp Hgb Conc 33.2 g/dL (32-36); Mean Corpuscular Hgb 28.1 pg (27.0-32.0); Mean Corpuscular Volume 84.8 fL (80-94); Mean Platelet Vol. 12.1 fl (6.2-12.0); Monocyte# 0.96 X10^3/uL; Monocyte% 10.9 % (0-10); NRBC Flagged by Analyzer 0 % (0-5); Neutrophil # 5.96 X10^3/uL (2.7-7.7); Neutrophil % 67.9 % (47-70); Platelet Count 222 K/mm3 (150-450); RBC Distribution Width CV 13.2 % (11.6-14.6); RBC Distribution Width SD 40.8 fl (35.1-43.9); Red Blood Count 5.08 M/mm3 (4.6-6.2); White Blood Count 8.8 K/mm3 (4.4-11.0)
[2020-12-06 17:08] LABS: AST(SGOT) 33 U/L (15-37); Alanine Aminotransfer ALT/SGPT 45 U/L (16-61); Alkaline Phosphatase 66 U/L (45-117); Anion Gap 7 (5-15); BUN 18 mg/dL (7-18); BUN/Creat Ratio 14.9 RATIO (10-20); Chloride 104 mmol/L (98-107); Cholesterol 158 mg/dL (200); Creatinine, Serum 1.21 mg/dL (0.70-1.30); EST Glomerular Filtration Rate 65 mL/min (>60); Est Glom Filt Rate - Afr Amer 78 mL/min (>60); Globulin 3.9 g/dL (2.2-4.2); Glucose 81 mg/dL (74-106); High Density Lipoprotein 44 mg/dL; PSA,Total - Annual Screen 2.27 ng/mL (0.00-4.00); Potassium 3.7 mmol/L (3.5-5.1); Protein, Total 7.9 g/dL (6.4-8.2); Sodium Level 139 mmol/L (136-145); Triglycerides 175 mg/dL; Uric Acid 8.9 mg/dL (3.5-7.2); Very Low Density Lipoprotein 35 mg/dL (5-40)
[2020-12-06 17:42] LABS: Hemoglobin A1c 5.5 % (3.8-5.6)
== END ==
PROVIDERS: PCP Family Medicine; Visit Provider Family Medicine
DX: Z00.00 Encounter for general adult medical examination without abnormal findings (principal); I25.10 Atherosclerotic heart disease of native coronary artery without angina pectoris; E78.5 Hyperlipidemia, unspecified; M10.9 Gout, unspecified; Z12.5 Encounter for screening for malignant neoplasm of prostate
CPT/HCPCS: 36415; 80048; 80053; 80061; 80076; 81002; 83036; 84153; 84550; 85025; G0103

== ENCOUNTER → 2021-03-19 08:22 | Outpatient (CLI) | payer OTHER, SELFPAY | PROVIDERS: PCP Family Medicine; Referring Provider Physician Assistant Surgical; Visit Provider Physician Assistant Surgical | DX: R09.81 Nasal congestion (principal) | CPT/HCPCS: 87635; U0005; U0003 ==

== ENCOUNTER 2021-03-19 16:40 | Outpatient (CLI) | payer OTHER, SELFPAY ==
[2021-03-19] MEDS: 0.9% Saline Lock 10 ML Syringe IV (17:09)
[2021-03-19 17:11] VITALS: BP 157/74; PULSE 64; RESP 16; TEMP 37.2; O2SAT 97; BMI 35.3
[2021-03-19 18:03] VITALS: BP 143/80; PULSE 58; RESP 16; TEMP 37.4; O2SAT 97
[2021-03-19 19:02] VITALS: BP 145/77; PULSE 60; RESP 16; TEMP 37.4; O2SAT 99
== END 2021-03-19 19:05 | disposition home or self-care (01) ==
LOC: ICUOUT 16:40 → MS2 16:41
PROVIDERS: PCP Family Medicine; Referring Provider Nurse Practitioner Acute Care; Visit Provider Nurse Practitioner Acute Care
DX: Z23 Encounter for immunization (principal); U07.1 COVID-19
CPT/HCPCS: J7050; M0245; Q0245; A4216

== ENCOUNTER 2021-05-29 10:30 | Outpatient (RCR) | payer OTHER, SELFPAY ==
--- NOTE | 2021-05-21 12:55 | HP.PTEVAL ---
Patient's Visit Information SUDHA WANG is a 61 year old M referred to Physical Therapy by Dr. Guanakito Wynn DO with a diagnosis of LBP, adductor strain.. Date of Evaluation: 05/21/21 Physical Therapist: Misty Vale - Visit Plan Frequency: 2x /Week Duration: 4 Weeks Plan: 1. Stretching, stick/foam rolling to quads, HS, adductors, hip flexors. 2. Progressive core strengthening/lumbar stabilization program - Subjective Pt bought estate of books back in July, lots of lifting to get them sorted. Back pain comes and goes since then as well as a pull/pain in his groin muscle. Pain came on gradually but was worse earlier on. Back spasms when he got up in the morning. Spasms in leg while sleeping that wakes him up. Feels tightness in back of legs into knees. Describes pain and heaviness in the legs. Walking on concrete increases back pain. Per pt, doctor said that there did not appear to be any skeletal involvement. Sitting doesn't really bother him, steps do not increase pain, but standing and walking increases pain in back and both legs. Pt has not tried ice, but reports that he turns on his seat heater in the car that seems to help. Pt denied N&T down legs. At rest, pt is not in pain. At worst, pain is 7/10 when he first gets out of bed. - Pain back Pain Intensity (Out of 10): 4 Pain Intensity Range: 0, 10 BLE Pain Intensity (Out of 10): 1 Pain Intensity Range: 0, 4 - Objective ROM: trunk flexion- fingertips to ankles (no pain), mildly limited extension (feels pulling), sidebend L>R (mild pain in both directions), limited rotation in both directions (painful). LES: BLE SLR 45 (feels major pulling in back of legs),. MMT: L hip flexion (5/5; pain in adductor region), R hip flexion (4+/5, no pain), B abductors (5/5 no pain), B hip extension (5/5 no pain), knee F/E (5/5 no pain). L hip flexor quad tightness > R hip flexor/quad tightness. Palpation: paraspinals (B), L1 spinous process. GAIT: no abnormalities noted. Pt reports that he seems to be walking his normal - Balance/Special Test Scores Oswestry Low Back Score: 10 Lower Extremity Functional Score: 58 - Goals Goal 1:: Pt to be I with HEP Goal Time Frame: 2-4 Weeks Goal 2:: Pt to increase B SLR to at least 90 degrees for increased mobility. Goal Time Frame: 4-6 Weeks Goal 3:: Pt to report decreased feelings of heaviness/pain in legs with activity/standing. Goal Time Frame: 4-6 Weeks Goal 4:: Pt to report decreased back pain walking unlimited distances (<2/10) without increase in medication. Goal Time Frame: 4-6 Weeks - Rehabilitation Potential Physical Therapy Diagnosis: Pt presents with s/s consistent with LBP, muscle strain/tightness that contributes to decreased participation in ADLs and extracurricular activities. Rehabilitation Potential: Good - Anticipated Interventions Patient/Client Instruction: Educate patient on: Condition, Plan of Care, Benefits of Fitness Program Therapeutic Exercise to Include: Strength training, Active ROM, Dynamic Lumbar Stabilization Manual Therapy Techniques to Include: Mobilization, Soft tissue mobilization Thank you for the opportunity to evaluate your patient. For Medicare and Medicare HMO plans, please review the plan of care and approve it. It will need to be FAXED BACK to us at [phone] for Medicare purposes. For Medicare only, by signing this I certify the plan of care. Please let me know if there are questions or concerns regarding this plan of care. Physician Signature: Date:
--- NOTE | 2021-07-16 10:15 | HP.PT.NRP ---
SUDHA WANG was seen in my office for initial evaluation on 05/21/21. The following Plan of Care was established for this patient: Initial Frequency: 2x /Week Initial Duration: 4 Weeks Patient/Client Instruction: Educate patient on: Condition, Plan of Care, Benefits of Fitness Program Therapeutic Exercise to Include: Strength training, Active ROM, Dynamic Lumbar Stabilization Manual Therapy Techniques to Include: Mobilization, Soft tissue mobilization This patient was last seen in our office 05/29/21. Pertinent comments regarding their Physical therapy will appear below: Pt seen for 2 visits of POC but did not attend any further visits. aT this point, it has been over 6 weeks and I will disocnitnue due to nonattendance. At this point I will be discontinuing this patient from physical therapy. I would be happy to see this patient again in the future if found appropriate by the physician. Thank you! Gonzalo Du, DPT, OCS, CSCS Balance/Gait/Functional tests - Balance/Special Test Scores Oswestry Low Back Score: 10 Lower Extremity Functional Score: 58
== END 2021-05-29 19:00 | disposition home or self-care (01) ==
LOC: PT 10:30
PROVIDERS: PCP Family Medicine; Referring Provider Family Medicine; Visit Provider Family Medicine
DX: M54.50 Low back pain, unspecified (principal); M79.671 Pain in right foot; S76.212D Strain of adductor muscle, fascia and tendon of left thigh, subsequent encounter
CPT/HCPCS: 97110; 97161

== ENCOUNTER → 2022-01-04 | Outpatient (CLI) | payer OTHER, SELFPAY ==
[2022-01-04 08:46] LABS: Absolute Lymphocyte Count 1.53 X10^3/uL (0.83-4.51); Absolute Neutrophil Count 6.2 X10^3/uL (2.0-7.7); Basophil# 0.05 X10^3/uL; Basophil% 0.5 % (0-1); Eosinophils% 2.2 % (0-5); Hematocrit 41.2 % (40-54); Hemoglobin 13.8 g/dL (13.0-16.5); Lymphocyte # 1.53 X10^3/ul (0.83-4.51); Lymphocyte % 16.6 % (19-41); Mean Corp Hgb Conc 33.5 g/dL (32-36); Mean Corpuscular Hgb 28.6 pg (27.0-32.0); Mean Corpuscular Volume 85.3 fL (80-94); Mean Platelet Vol. 11.5 fl (6.2-12.0); Monocyte# 1.15 X10^3/uL; Monocyte% 12.5 % (0-10); NRBC Flagged by Analyzer 0 % (0-5); Neutrophil # 6.24 X10^3/uL (2.7-7.7); Neutrophil % 67.9 % (47-70); Platelet Count 196 K/mm3 (150-450); RBC Distribution Width CV 13.6 % (11.6-14.6); RBC Distribution Width SD 41.9 fl (35.1-43.9); Red Blood Count 4.83 M/mm3 (4.6-6.2); White Blood Count 9.2 K/mm3 (4.4-11.0)
[2022-01-04 09:03] LABS: Microalbumin,Random Urine 18.7 mg/L (NO RANGE EST.); Microalbumin:Creatinine Ratio 5.6 mg/g CRE (<30 mg/g CRE)
[2022-01-04 09:12] LABS: Hemoglobin A1c 5.7 % (3.8-5.6)
[2022-01-04 09:25] LABS: ALB/GLOB Ratio 0.9 RATIO (0.9-2.4); AST(SGOT) 22 U/L (15-37); Alanine Aminotransfer ALT/SGPT 30 U/L (16-61); Albumin, Serum 3.7 g/dL (3.2-5.0); Alkaline Phosphatase 67 U/L (45-117); Anion Gap 7 (5-15); BUN 15 mg/dL (7-18); BUN/Creat Ratio 12.7 RATIO (10-20); Calcium,Total 8.9 mg/dL (8.5-10.1); Chloride 103 mmol/L (98-107); Cholesterol 164 mg/dL (200); Creatinine, Serum 1.18 mg/dL (0.70-1.30); EST Glomerular Filtration Rate 66 mL/min (>60); Est Glom Filt Rate - Afr Amer 80 mL/min (>60); Globulin 3.9 g/dL (2.2-4.2); Glucose 111 mg/dL (74-106); High Density Lipoprotein 40 mg/dL; PSA,Total - Annual Screen 2.39 ng/mL (0.00-4.00); Potassium 3.3 mmol/L (3.5-5.1); Protein, Total 7.6 g/dL (6.4-8.2); Sodium Level 138 mmol/L (136-145); Triglycerides 239 mg/dL; Uric Acid 9.6 mg/dL (3.5-7.2); Very Low Density Lipoprotein 48 mg/dL (5-40)
== END | disposition home or self-care (01) ==
LOC: LAB 07:59
PROVIDERS: PCP Family Medicine; Referring Provider Family Medicine; Visit Provider Family Medicine
DX: I25.10 Atherosclerotic heart disease of native coronary artery without angina pectoris (principal); I10 Essential (primary) hypertension; E78.5 Hyperlipidemia, unspecified; M10.9 Gout, unspecified; R73.01 Impaired fasting glucose; Z12.5 Encounter for screening for malignant neoplasm of prostate
CPT/HCPCS: 36415; 80053; 80061; 82043; 82570; 83036; 84153; 84550; 85025; G0103

== ENCOUNTER → 2022-03-20 | Outpatient (CLI) | payer OTHER, SELFPAY ==
--- NOTE | 2022-03-20 06:57 | ECHOCS_ITS ---
Reason For Study: ASHD/CAD Procedure This was a 2D Doppler, Color Flow transthoracic echocardiogram. The study was technically difficult. Due to body habitus. Contrast injection was performed. Exam performed in department. Left Ventricle Normal LV size. Left ventricular systolic function is normal. The estimated ejection fraction is 55 %. Stage 2 diastolic dysfunction. No regional wall motion abnormalities noted. Right Ventricle Normal RV size. Normal systolic function. Atria Normal left atrium. Mitral Valve Normal mitral valve. Tricuspid Valve Normal tricuspid valve. Mild tricuspid valve insufficiency. Pulmonary artery systolic pressure is 33 mmHg. Pulmonic Valve The pulmonic valve is not well visualized. Great Vessels Normal aortic root. Pericardium/Pleural No pericardial effusion. Medication Diluted definity 3.0ml given slow IV push to enhance endocardial definition. MMode/2D Measurements & Calculations LVIDd: 5.9 cm IVSd: 0.83 cm Ao root diam: 3.9 cm LVIDs: 4.0 cm LVPWd: 0.95 cm RVDd: 2.9 cm FS: 32.4 % LAV(MOD-bp): 121.1 ml LVAd ap4: 42.9 cm2 LVAd ap2: 39.5 cm2 LAV(MOD-bp) Indexed: 47.0 ml/m2 LVLd ap4: 9.4 cm LVLd ap2: 9.4 cm LAV(MOD-sp2): 124.4 ml EDV(MOD-sp4): 164.7 ml EDV(MOD-sp2): 154.2 ml LAV(MOD-sp4): 109.0 ml EDV(sp4-el): 165.5 ml EDV(sp2-el): 148.3 ml LVAs ap4: 20.3 cm2 LVAs ap2: 18.9 cm2 LVLs ap4: 7.7 cm LVLs ap2: 7.5 cm ESV(MOD-sp4): 47.5 ml ESV(MOD-sp2): 41.3 ml ESV(sp4-el): 45.4 ml ESV(sp2-el): 40.7 ml EF(MOD-sp4): 71.2 % EF(MOD-sp2): 73.2 % EF(sp4-el): 72.6 % SV(MOD-sp4): 117.2 ml SV(MOD-sp2): 112.9 ml SV(sp4-el): 120.2 ml LA dimension(2D): 6.4 cm LA A4 area: 30.9 cm2 RA A4 area: 21.7 cm2 Time Measurements MV dec time: 0.20 sec Doppler Measurements & Calculations MV E max jordy: 101.2 cm/sec Lat Peak E' Jordy: 14.6 cm/sec Med Peak E' Jordy: 10.9 cm/sec MV A max jordy: 62.5 cm/sec E/E' lat: 6.9 E/E' med: 9.3 MV E/A: 1.6 MV dec slope: 498.5 cm/sec2 Ao V2 max: 148.3 cm/sec LV V1 max: 104.3 cm/sec Ao max P.8 mmHg LV V1 max P.4 mmHg Ao V2 mean: 96.6 cm/sec LV V1 mean P.6 mmHg Ao mean P.4 mmHg LV V1 mean: 75.7 cm/sec Ao V2 VTI: 31.0 cm LV V1 VTI: 21.2 cm MR max jordy: 530.5 cm/sec PA V2 max: 112.9 cm/sec TR max jordy: 272.4 cm/sec MR max P.6 mmHg TR max P.7 mmHg ECHO/Echo Complete W/ Contrast Interpretation Summary Normal LV size. Left ventricular systolic function is normal. The estimated ejection fraction is 55 %. Stage 2 diastolic dysfunction. Contrast injection was performed. Ordering Physician: Jerson King Referring Physician: Guanakito Wynn Performed By: Jordana Payne, KATALINACS, RVT
--- NOTE | 2022-03-20 17:15 | STRESSREP_ITS ---
Stress Test Report Pharmacologic myocardial perfusion stress test. 62-year-old man with a history of coronary artery disease status post coronary bypass surgery. Resting EKG. Resting EKG demonstrates normal sinus rhythm with a rate of 62 bpm normal intervals are noted. Resting blood pressure is 126/78 mmHg. 0.4 mg of regadenoson was infused per usual protocol followed by rapid intravenous saline flush injection continuous EKG monitoring was performed. The maximum heart rate attained was noted to be 70 bpm which was 44% of max impacted heart rate the [facility] workload was 1 metabolic equivalent. At rest there were no ST or T wave changes noted to suggest abnormal flow reserve and at peak infusion nonspecific ST changes were noted with did not meet the criteria for ischemia. No clinical angina was noted. The final blood pressure was 120/74 mmHg. Myocardial perfusion protocol. 14.9 mCi of technetium 99m sestamibi was injected at rest. 0.4 mg of regadenoson was infused per usual protocol. At peak infusion 44.8 mCi of technetium 99m sestamibi was injected stress images were obtained stress and rest images were reconstructed in comparing the short axis vertical long and horizontal long axis. Gated images were also obtained. Perfusion SPECT analysis: Review of the stress images demonstrate normal uptake of tracer noted in all areas of the myocardium. The resting images similarly demonstrate normal uptake of tracer noted in all areas of the myocardium. No areas of reversibility are noted to suggest ischemia and no previous infarct is noted. Gated SPECT analysis: Gated ejection fraction is 62%. Conclusion: Normal pharmacologic myocardial perfusion stress test. Preserved ejection fraction.
== END | disposition home or self-care (01) ==
PROVIDERS: PCP Family Medicine; Referring Provider Internal Medicine Cardiovascular Disease; Visit Provider Internal Medicine Cardiovascular Disease
DX: I25.10 Atherosclerotic heart disease of native coronary artery without angina pectoris (principal); Z95.1 Presence of aortocoronary bypass graft
CPT/HCPCS: 78452; 93017; 93306; A9500; Q9957; A4216; C8929; J2785

== ENCOUNTER → 2022-03-26 | Outpatient (CLI) | payer OTHER, SELFPAY ==
[2022-03-26 09:43] LABS: Anion Gap 7 (5-15); BUN 16 mg/dL (7-18); BUN/Creat Ratio 13.4 RATIO (10-20); Chloride 103 mmol/L (98-107); Creatinine, Serum 1.19 mg/dL (0.70-1.30); EST Glomerular Filtration Rate 66 mL/min (>60); Est Glom Filt Rate - Afr Amer 79 mL/min (>60); Glucose 110 mg/dL (74-106); Potassium 3.1 mmol/L (3.5-5.1); Sodium Level 140 mmol/L (136-145)
== END | disposition home or self-care (01) ==
LOC: LAB 08:14
PROVIDERS: PCP Family Medicine; Referring Provider Internal Medicine Cardiovascular Disease; Visit Provider Internal Medicine Cardiovascular Disease
DX: I10 Essential (primary) hypertension (principal); Z95.1 Presence of aortocoronary bypass graft
CPT/HCPCS: 36415; 80048

== ENCOUNTER → 2022-04-04 | Outpatient (CLI) | payer OTHER, SELFPAY ==
[2022-04-04 13:10] LABS: Anion Gap 8 (5-15); BUN 18 mg/dL (7-18); BUN/Creat Ratio 15.4 RATIO (10-20); Calcium,Total 9.1 mg/dL (8.5-10.1); Chloride 102 mmol/L (98-107); Creatinine, Serum 1.17 mg/dL (0.70-1.30); EST Glomerular Filtration Rate 67 mL/min (>60); Est Glom Filt Rate - Afr Amer 81 mL/min (>60); Glucose 110 mg/dL (74-106); Potassium 3.4 mmol/L (3.5-5.1); Sodium Level 139 mmol/L (136-145)
== END | disposition home or self-care (01) ==
LOC: LAB 11:11
PROVIDERS: PCP Family Medicine; Visit Provider Internal Medicine Cardiovascular Disease
DX: E87.6 Hypokalemia (principal)
CPT/HCPCS: 36415; 80048

== ENCOUNTER → 2022-10-18 | Outpatient (CLI) | payer OTHER, SELFPAY ==
[2022-10-18 10:35] LABS: Anion Gap 3 (5-15); BUN 21 mg/dL (7-18); BUN/Creat Ratio 14.8 RATIO (10-20); Calcium,Total 9.4 mg/dL (8.5-10.1); Chloride 102 mmol/L (98-107); Creatinine, Serum 1.42 mg/dL (0.70-1.30); EST Glomerular Filtration Rate 53 mL/min (>60); Est Glom Filt Rate - Afr Amer 65 mL/min (>60); Glucose 117 mg/dL (74-106); Sodium Level 135 mmol/L (136-145)
== END | disposition home or self-care (01) ==
PROVIDERS: PCP Family Medicine; Referring Provider Family Medicine; Visit Provider Family Medicine
DX: I10 Essential (primary) hypertension (principal)
CPT/HCPCS: 36415; 80048

== ENCOUNTER 2023-01-09 22:09 | Emergency (ER) | payer OTHER, SELFPAY ==
[2023-01-09 22:10] VITALS: BP 175/82; PULSE 76; RESP 15; TEMP 36.4; O2SAT 99; BMI 35.5
--- NOTE | 2023-01-09 22:30 | RAD_ITS ---
STUDY: X-RAY - RIGHT HAND REASON FOR EXAM: Male, 63 years old. trauma TECHNIQUE: 3 view(s) of the hand. COMPARISON: None. FINDINGS: Fractures are seen of the necks of the fourth and fifth metacarpals, without significant displacement. There is dislocation of the fifth carpometacarpal joint. Normal radiocarpal articulation. Normal distal radioulnar joint. Normal visualized carpal bones. Normal carpal articulations Normal carpometacarpal articulation of the thumb. Normal second through fifth carpometacarpal joints. Normal metacarpophalangeal joint of the thumb. Normal interphalangeal joint of the thumb. Normal proximal and distal phalanges of the thumb. Normal metacarpophalangeal joints of the second through fifth fingers. Normal proximal and distal interphalangeal joints of the second through fifth fingers. Normal phalanges of the second through fifth fingers. There is dorsal soft tissue swelling. RAD/Hand Min 3 Views IMPRESSION: Fractures are seen of the necks of the fourth and fifth metacarpals, without significant displacement. There is dislocation of the fifth carpometacarpal joint. Electronically Signed: Sky Quiroga MD at 22:47 EDT ,
--- NOTE | 2023-01-09 22:30 | RAD_ITS ---
STUDY: X-RAY - RIGHT ELBOW REASON FOR EXAM: Male, 63 years old. trauma TECHNIQUE: 3 view(s) of the elbow. COMPARISON: None. FINDINGS: There is a fracture through the head of the radius without significant displacement. No other fractures or dislocations. There is an elbow effusion. Normal radiocapitellar and ulnotrochlear articulations. The soft tissue structures are unremarkable. RAD/Elbow min 3 Views IMPRESSION: There is a fracture through the head of the radius without significant displacement. Electronically Signed: Sky Quiroga MD at 22:46 EDT ,
--- NOTE | 2023-01-09 23:19 | EX.ED.UPPERE ---
HPI History of Present Illness Chief Complaint: Upper Extremity Injury Informant: patient Narrative Narrative: Patient presents after a fall while playing basketball. Patient states he went after the ball quickly. He states his body moved but his legs did not catch up. He fell sort of on his right side. He did put out his hand. He hit his hand then his elbow. He did hit the side of his head on the ground. But he had no loss of consciousness nausea vomiting dizziness. He takes baby aspirin only. No neurologic symptoms. He states mostly his hand is sore. His elbow is just a little bit sore but he has trouble fully extending it without discomfort. No chest pain. No lower extremity pain. He is right-hand dominant. [facility] Medical History Anxiety about health Atherosclerotic heart disease of [place] coronary artery without angina pectoris Bronchiectasis Cellulitis of left lower extremity Cellulitis of right foot Essential (primary) hypertension Fungal dermatitis GERD (gastroesophageal reflux disease) Gout Hyperlipidemia Lumbar radiculopathy Lumbar strain Obesity Obesity (BMI 30.0-34.9) Obstructive sleep apnea Olecranon bursitis of left elbow Postoperative atrial fibrillation Rectal or anal pain Tinnitus, left ear Urinary frequency Home Medications citalopram 40 mg tablet 40 mg PO DAILY anxiety 08/11/15 [History Last Taken 10/27/18] pravastatin 40 mg tablet 40 mg PO DAILY cholesterol 07/31/17 [History Last Taken 10/27/18] aspirin 81 mg tablet,delayed release (Adult Aspirin Regimen) 81 mg PO DAILY 12/12/18 [History Last Taken Unknown] pantoprazole 40 mg tablet,delayed release 40 mg PO DAILY 12/16/18 [History Last Taken Unknown] lorazepam 1 mg tablet 2 mg PO TID PRN Anxiety 01/27/19 [History Last Taken Unknown] atenolol 50 mg-chlorthalidone 25 mg tablet (Tenoretic) 1 tab PO DAILY #90 tabs 02/13/22 [Rx Last Taken Unknown] lisinopril 40 mg tablet 40 mg PO DAILY Pt stopping Losartan #90 tabs 04/03/22 [Rx Last Taken Unknown] potassium chloride 20 mEq tablet,extended release 40 meq (2 x 20 mEq) PO DAILY #90 tabs 04/04/22 [Rx Last Taken Unknown] Allergy/AdvReac Type Severity Reaction Status Date / Time Penicillins Allergy Other Verified 12/03/22 11:36 losartan AdvReac Intermediate Headaches, Verified 12/03/22 11:36 palpitations Family History Mother No problems noted. Sister No problems noted. Brother Hypertension CAD (coronary artery disease) Sister Hypertension Brother CAD (coronary artery disease) Father Emphysema of lung Surgical History H/O coronary artery bypass surgery (11/03/18) History of cardioversion (11/12/18) History of coronary artery stent placement (07/03/07) History of left heart catheterization (10/28/18) Social History Smoking Status: Never smoker second hand exposure: Yes alcohol intake: never caffeine: Yes Type: carbonated beverages ROS ROS ED Constitutional Constitutional ED: Denies fever(s) or subjective Eyes Eyes: Denies blurry vision, change in vision or diplopia ENT ENT ED: Reports other Details: Patient did get abrasion in the area of his right side of the head/cheek ; Denies ear pain, rhinorrhea or sore throat Cardiovascular Cardiovascular: Denies chest pain or palpitations Respiratory/Chest Respiratory/Chest: Denies cough or dyspnea Gastrointestinal Gastrointestinal: Denies nausea or vomiting Genitourinary Genitourinary ED: Denies hematuria Musculoskeletal Musculoskeletal: Reports other Details: Right hand and right elbow pain ; Denies back pain or neck pain Integumentary Reports Abrasions Neurologic Neurologic: Denies headache(s), paresthesias or weakness Hematologic/Lymphatic Hematologic/Lymphatic: Denies easy bleeding, easy bruising or lymphadenopathy Allergic/Immunologic Allergic/Immunologic ED: Denies urticaria EXAM Physical Exam Narrative Exam Narrative: Patient is awake alert no acute distress sitting comfortably on the bed. Introduces himself as I walk in the room. Very clear consistent informant. HEENT does show an abrasion over by the right side of his head/cheek. But no tenderness under the zygoma where the abrasion is. No nasal bleeding. Eyes show no limitation of motion or sign of injury. Neck is supple with no pain with motion or palpation Lungs are clear bilaterally and saturations are normal at 99% on room air showing no hypoxia. Heart is regular tones are not muffled. Pulses are intact distally. Abdomen is nontender. Spine shows no cervical thoracic or lumbar tenderness Extremities no tenderness of his lower extremities from ankle all the way down to her feet. Left extremity upper is not involved with any injury. Right upper extremity shows no tenderness at the shoulder or humerus. There are some slight abrasions on the lateral aspect of the elbow. He has actually pretty good pronation and supination but full extension is limited by about 5 or 8 degrees. There is some tenderness over the proximal radial head. No visible deformity. He also has a fair amount of swelling on the dorsum of his hand overlying mostly the fourth and fifth metacarpals. There is some developing ecchymosis in this area. But he can fully extend them straight. He can flex them into his hand and there is no rotational or other deformity other than some slight ulnar deviation of the ring finger. But no rotational deformity. The swelling does limit exam somewhat. Const Vital Signs: 01/09/23 22:10 Temperature 97.5 F L Temperature Source Temporal Pulse Rate 76 Respiratory Rate 15 Blood Pressure 175/82 H Blood Pressure Mean 113 Pulse Ox 99 Oxygen Delivery Method Room Air MDM MDM MDM Narrative Medical decision making narrative: My independent interpretation of the patient's three-view right elbow shows fracture of the radial head including a portion of the goes intra-articular. But there is minimal displacement. Final read is similar. My independent interpretation of three-view x-ray of his right hand shows a fracture of the distal fourth and fifth metacarpals. There is essentially no displacement of the distal fifth. There is minimal displacement of the distal fourth. But there is also what appears to be likely dorsal displacement of the fifth metacarpal on the hamate. This is also shortened somewhat. I discussed case with orthopedic surgeon on-call, Dr. Reyna. Plan will be attempted reduction of this. We will do hematoma block and let the patient rest. AP splints will be applied and he will follow-up. Patient states he does not want narcotics for pain because they just do not make him feel well. He is happy taking just Tylenol Procedure note: Hematoma block and reduction of fifth carpometacarpal joint. A total of 4 cc of a 50% mixture of 0.5% Marcaine and 1% lidocaine without epinephrine was used in a dorsal medial approach to the fifth carpometacarpal dislocation area. Patient actually got very good anesthesia of this area. I was able to pull on the fifth metacarpal and attempt reduction. There is a lot of swelling in this area of the hand. Therefore was very hard to feel the proximal edge of this bone and feel if it went fully back in. I was able to get the fifth ray out to a greater length and I did not feel any posterior dislocation. We had a grinding sense as it went in and even the patient can feel that. But when I released it it seemed to go back. This happened several times. I then reduced it and held it in place as we wrapped it with an AP splint. I used 12 inch fiberglass involving the third fourth and fifth ray up through the wrist. I held this in position with slight flexion of the wrist as this seemed to hold in better position. But I cannot tell physically if the joint is fully reduced. It seems like it easily pops back out. Repeat films are being done. Repeat images shows that there is still dislocation. I think there is some small fragmentation that is preventing this from staying in the appropriate position. I discussed the case with Dr. Reyna again. He will have the patient come to his office in the morning. The patient will not eat or drink anything tonight. I explained this to the patient. We will get him the appropriate location. Radiography Diagnostic Testing: Clinical Impression(s) from Imaging Studies Elbow X-Ray 01/09/23 22:30 IMPRESSION: There is a fracture through the head of the radius without significant displacement. Electronically Signed: Sky Quiroga MD at 22:46 EDT , Hand X-Ray 01/09/23 22:30 IMPRESSION: Fractures are seen of the necks of the fourth and fifth metacarpals, without significant displacement. There is dislocation of the fifth carpometacarpal joint. Electronically Signed: Sky Quiroga MD at 22:47 EDT , Discharge Plan Triage Chief Complaint: Upper Extremity Injury ED Provider: Thomas Russ Dx/Rx/DC Orders Clinical Impression: Abrasion of cheek, Injury while playing basketball, Fracture of fourth metacarpal bone of right hand, Fracture of fifth metacarpal bone of right hand, Dislocation of carpometacarpal joint of right hand, Abrasion, multiple sites, Closed fracture of head of right radius Instructions: ED Finger Dislocation, ED Fracture, Finger, Closed Prescriptions: No Action pravastatin 40 mg tablet 40 mg PO DAILY pantoprazole 40 mg tablet,delayed release (DR/EC) 40 mg PO DAILY aspirin [Adult Aspirin Regimen] 81 mg tablet,delayed release (DR/EC) 81 mg PO DAILY atenolol-chlorthalidone [Tenoretic 50] 50-25 mg tablet 1 tab PO DAILY Qty: 90 3RF citalopram 40 MG tablet 40 mg PO DAILY lorazepam 1 mg tablet 2 mg PO TID PRN (Reason: Anxiety) lisinopril 40 mg tablet 40 mg PO DAILY Qty: 90 3RF potassium chloride 20 mEq tablet extended release 40 meq PO DAILY Qty: 90 3RF Primary Care Provider: Guanakito Wynn Referrals: Guanakito Wynn DO [Primary Care Provider] - Kelvin Reyna MD [Med Staff - Active Staff] - 1 Day (Follow-up with Dr. Ryena's office in the morning. Please do not eat or drink anything tonight. It is possible they will be able to do surgery in the morning.) Disposition Disposition: Home, Self Care
[2023-01-09] MEDS: Bupivacaine Mpf 0.5% 30 ML VIAL INFILT (23:40)
--- NOTE | 2023-01-10 00:30 | RAD_ITS ---
INDICATION: trauma EXAMINATION/TECHNIQUE: X-RAY - RIGHT XR Hand Min 3 Views 3 VIEWS COMPARISON: FINDINGS: SOFT TISSUES: No soft tissue swelling or gas. No radiopaque foreign body. BONES/JOINTS: There are nondisplaced fractures near the head of the fourth and fifth metacarpals. There is fracture with dislocation at the base of the fifth metacarpal. There is severe degenerative arthrosis at the lateral aspect of the wrist. There is [id number] degenerative arthrosis of the metacarpophalangeal joints and interphalangeal joints of all fingers. RAD/Hand Min 3 Views IMPRESSION: There are nondisplaced fractures near the head of the fourth and fifth metacarpals. There is fracture with dislocation at the base of the fifth metacarpal. Electronically Signed: Odalis Tapia MD at 1:45 EDT ,
[2023-01-10] MEDS: Diphth,Pertuss(Acell),Tet Vac 0.5 ML Vial IM (00:41)
[2023-01-10 01:13] VITALS: BP 164/93; PULSE 75; RESP 18; O2SAT 96
== END 2023-01-10 01:14 | disposition home or self-care (01) ==
PROVIDERS: Emergency Provider Emergency Medicine; PCP Family Medicine; Visit Provider Emergency Medicine
DX: S52.121A Displaced fracture of head of right radius, initial encounter for closed fracture (principal); E78.5 Hyperlipidemia, unspecified; S00.81XA Abrasion of other part of head, initial encounter; I10 Essential (primary) hypertension; I25.10 Atherosclerotic heart disease of native coronary artery without angina pectoris; S62.304A Unspecified fracture of fourth metacarpal bone, right hand, initial encounter for closed fracture; S62.306A Unspecified fracture of fifth metacarpal bone, right hand, initial encounter for closed fracture; S63.054A Dislocation of other carpometacarpal joint of right hand, initial encounter; W18.39XA Other fall on same level, initial encounter; Y93.67 Activity, basketball; Z79.82 Long term (current) use of aspirin; Z95.5 Presence of coronary angioplasty implant and graft; Z23 Encounter for immunization
CPT/HCPCS: 26675; 73080; 73130; 90471; 90715; 99282

== ENCOUNTER 2023-01-16 12:28 | Day surgery (SDC) | payer OTHER, SELFPAY ==
--- NOTE | 2023-01-14 12:27 | RAD_ITS ---
ACR Level 3 findings have been noted. An addendum which confirms receipt of the report will follow. INDICATION: PREOP EXAMINATION/TECHNIQUE: X-RAY - XR Chest 2 Views COMPARISON: FINDINGS: LINES/DEVICES: None. LUNGS: A focal 4 mm nodule is noted at the left lung base. A questionable 1.2 cm nodule is noted in the left upper lung. A 5 mm nodules noted in the right upper lung. Consolidation, edema or effusion. No pneumothorax. MEDIASTINUM AND CARDIOVASCULAR STRUCTURES: Cardiac silhouette not enlarged. Central airways and mediastinal contour are unremarkable. BONES AND SOFT TISSUES: Unremarkable. RAD/Chest PA and Lateral IMPRESSION: Questionable small lung nodules as described. CT chest may be helpful for further characterization. Electronically Signed: Henrique Huizar, at 12:49 EDT ,
[2023-01-14 13:40] LABS: Absolute Lymphocyte Count 1.36 X10^3/uL (0.83-4.51); Absolute Neutrophil Count 6.5 X10^3/uL (2.0-7.7); Basophil# 0.07 X10^3/uL; Basophil% 0.8 % (0-1); Eosinophil# 0.21 X10^3/uL; Eosinophils% 2.3 % (0-5); Hematocrit 41.4 % (40-54); Hemoglobin 13.9 g/dL (13.0-16.5); Lymphocyte # 1.36 X10^3/ul (0.83-4.51); Lymphocyte % 14.8 % (19-41); Mean Corp Hgb Conc 33.6 g/dL (32-36); Mean Corpuscular Hgb 28.9 pg (27.0-32.0); Mean Corpuscular Volume 86.1 fL (80-94); Mean Platelet Vol. 10.7 fl (6.2-12.0); Monocyte# 0.99 X10^3/uL; Monocyte% 10.8 % (0-10); NRBC Flagged by Analyzer 0 % (0-5); Neutrophil # 6.52 X10^3/uL (2.7-7.7); Neutrophil % 71.1 % (47-70); Platelet Count 273 K/mm3 (150-450); RBC Distribution Width CV 12.8 % (11.6-14.6); RBC Distribution Width SD 39.8 fl (35.1-43.9); Red Blood Count 4.81 M/mm3 (4.6-6.2); White Blood Count 9.2 K/mm3 (4.4-11.0)
[2023-01-14 13:57] LABS: Anion Gap 7 (5-15); BUN 22 mg/dL (7-18); BUN/Creat Ratio 16.1 RATIO (10-20); Calcium,Total 9.1 mg/dL (8.5-10.1); Chloride 103 mmol/L (98-107); Creatinine, Serum 1.37 mg/dL (0.70-1.30); EST Glomerular Filtration Rate 56 mL/min (>60); Est Glom Filt Rate - Afr Amer 67 mL/min (>60); Glucose 109 mg/dL (74-106); Potassium 3.7 mmol/L (3.5-5.1); Sodium Level 137 mmol/L (136-145)
[2023-01-16] VITALS (8 sets, daily range): BP systolic 54–123; BP diastolic 34–82; PULSE 59–92; RESP 16; TEMP 36.3–36.9; O2SAT 92–97; BMI 34.7
[2023-01-16] MEDS: Lactated Ringers 1,000 ML 15 ML IV (13:22)
[2023-01-16] MEDS: Clindamycin 900 MG/50 ML BAG 75 MG IV (14:59)
--- NOTE | 2023-01-16 15:10 | RAD_ITS ---
STUDY: X-RAY - RIGHT HAND REASON FOR EXAM: Male, 63 years old. FX TECHNIQUE: 3 view(s) of the hand. COMPARISON: 01/10/2023 FINDINGS: 33 seconds of fluoroscopy of the right hand was utilized operating room during percutaneous fixation of fractures of the fourth and fifth metacarpal bones in 3 images are submitted for interpretation. . RAD/Hand Min 3 Views IMPRESSION: Fluoroscopy during percutaneous fixation of fractures of the fourth and fifth metacarpal bone. Electronically Signed: Jay Barbosa MD at 22:17 EDT ,
[2023-01-16] MEDS: Lidocaine 1% (20 ml mdv) 20 ML Vial (15:40)
[2023-01-16] MEDS: Ketorolac 30 MG/ML Syringe IV (16:31)
--- NOTE | 2023-01-16 19:05 | OP.PCM_ITS ---
Report of Operation Date of Procedure: 01/16/23 Description of Surgical Findings:: Preoperative diagnosis: 1. Displaced right fourth metacarpal neck fracture 2. Displaced right fifth metacarpal neck fracture 3. Right fifth carpometacarpal joint dislocation Postoperative diagnosis: 1. Displaced right fourth metacarpal neck fracture 2. Displaced right fifth metacarpal neck fracture 3. Right fifth carpometacarpal joint dislocation Procedures: 1. Closed reduction percutaneous pinning right fourth metacarpal neck fracture 2. Closed reduction percutaneous pinning right fifth metacarpal neck fracture 3. Closed reduction percutaneous pinning right fifth carpometacarpal joint dislocation Surgeon: Michoacano Sepulveda DO Mental Health Director: Bibiana Hedrick PA-C Anesthesiologist: Gonzalo Culver MD Estimated blood loss: 2 cc IV fluids: 500 cc crystalloid Urine output: None recorded Specimen: None Packing/drains: None Implants: 0.054 K wire x3, 0.045 K wire x4 Complications: None apparent Preoperative indications: This is a 63-year-old male seen in the outpatient setting after referral from emergency department following a fall onto an outstretched right hand playing basketball on 01/09/2023. X-rays in the emergency department revealed a nondisplaced right radial head fracture, minimally displaced fourth and fifth metacarpal neck fractures as well as a dislocation at the base of the fifth metacarpal CMC joint. Closed reduction of the CMC joint dislocation was attempted in the emergency department but was unsuccessful. He was splinted and followed up in our office. I saw the patient in consultation. I recommended surgical intervention in the form of closed versus open reduction internal fixation versus percutaneous pinning of the right fifth CMC joint dislocation as well as pinning of the fourth and fifth metacarpal necks. The risks, benefits, alternatives to procedure were reviewed with the patient at length and he agreed to proceed. Risk included but were not limited to bleeding infection, loss of life or limb, need for additional surgery, persistent pain, nonhealing wounds, stiffness, neurovascular injury, posttraumatic arthritis, deformity, tendon adhesions, DVT or PE, nonhealing bone. Patient's breast understanding and wished to proceed with surgery. Informed sent obtained in the outpatient setting. I recommended nonoperative management of the radial head fracture with simple sling. Description of procedure: Patient was identified in the preoperative holding area by name, medical record number, and date of . The operative extremity was marked. All questions answered to patient's satisfaction. Patient was neurovascular intact in the preoperative holding area. At time of his procedure, patient brought the op suite positioned supine a standard operating table with a hand table to patch the patient's left side. We spun the bed 90 degrees after MAC anesthesia was induced. Prior to prepping, administered a tumescent field block at the level of the fifth CMC joint with 10 cc total of 50: 50 mixture 1% lidocaine plain and 0.25% bupivacaine plain. Patient tolerated the block well. We prepped and draped the left upper extremity in a normal, sterile orthopedic fashion. Tourniquet was applied but never inflated. We performed timeout with all parties in attendance in agreement the side, site, operation's to be performed. No concerns were voiced elected proceed with surgery. 2 g Ancef was administered IV prior to pin placement by anesthesia staff. I then proceeded with placing gentle traction to the fourth and fifth digits. A palpable clunk was appreciated. Fluoroscopy was brought in and demonstrated anatomic reduction of the fifth CMC. My itinerant teacher assistant held traction while I placed 3 .054 K wires traversing the CMC joint into the hamate as well as an additional pin to the base of the fourth metacarpal for additional fixation. Traction was let off and fluoroscopy confirmed a stable reduction. I then proceeded with cross pinning of the fourth and fifth metacarpal necks. I applied a gentle extension force across the metacarpal necks to achieve near anatomic reduction. 0.045 K wires were placed in the collateral recesses of the fourth and fifth metacarpals and cross pinning was performed in standard fashion. Final fluoroscopic images were obtained and demonstrated appropriate placement and reductions. K wires were then bent at the skin level and trend. The skin was cleansed. Pin sites were wrapped with Xeroform. Bulky sterile compression dressing was applied. A well-padded ulnar gutter fiberglass splint in resting position was applied to the fourth and fifth digits. Patient was awoken from anesthesia and transferred to his gurney and subsequent to PACU in stable condition. He tolerated procedure well without apparent complication. Need for skilled itinerant teacher assistant: Bibiana Hedrick PA-C was critical to the outcome of the case. During the course of the procedure the physician itinerant teacher assistant played a vital role. Her intimate knowledge of my steps in the procedure aided in safe and expedient completion of the procedure. The PA played a vital role in positioning particularly in obtaining the appropriate positioning. The PA was also vital and obtaining fracture reduction and assisting with hardware placemen t. She also played a vital role in splint application with my direct supervision. Postoperative plan: Patient will be discharged home same day today. Nonweightbearing to the operative extremity. Maintain sling except for hygiene purposes. Maintain splint till follow-up in 1 week for x-rays in splint. Plan to transition to a ulnar gutter cast at that time. Plan for 3 weeks of K wire placement with plans to pull in the office. We will likely transition to a short arm cast and begin OT at 3 weeks. Prescription for tramadol provided. Tylenol and ibuprofen encouraged. Ice and elevation encouraged.
== END 2023-01-16 17:21 | disposition home or self-care (01) ==
LOC: SDC 12:36 → AC 12:39
PROVIDERS: PCP Family Medicine; Referring Provider Student in an Organized Health Care Education/Training Program; Visit Provider Student in an Organized Health Care Education/Training Program
PROC: (CPT 26676; principal; 2023-01-16 13:35)
DX: S52.121A Displaced fracture of head of right radius, initial encounter for closed fracture (principal); W17.89XA Other fall from one level to another, initial encounter; Y93.67 Activity, basketball; Y92.310 Basketball court as the place of occurrence of the external cause; K21.9 Gastro-esophageal reflux disease without esophagitis; I25.10 Atherosclerotic heart disease of native coronary artery without angina pectoris; E78.00 Pure hypercholesterolemia, unspecified; I10 Essential (primary) hypertension; Z86.16 Personal history of COVID-19; S63.044A Dislocation of carpometacarpal joint of right thumb, initial encounter; E66.9 Obesity, unspecified; Z68.36 Body mass index [BMI] 36.0-36.9, adult
CPT/HCPCS: 26676; 26608 ×2; 36415; 71046; 73130; 76000; 80048; 85025; 93005; J7120; J2405

== ENCOUNTER → 2023-03-18 | Outpatient (CLI) | payer OTHER, SELFPAY ==
[2023-03-18 12:58] LABS: ALB/GLOB Ratio 0.9 RATIO (0.9-2.4); AST(SGOT) 27 U/L (15-37); Alanine Aminotransfer ALT/SGPT 41 U/L (16-61); Albumin, Serum 3.9 g/dL (3.2-5.0); Alkaline Phosphatase 72 U/L (45-117); Anion Gap 7 (5-15); BUN 20 mg/dL (7-18); BUN/Creat Ratio 13.8 RATIO (10-20); Calcium,Total 8.8 mg/dL (8.5-10.1); Chloride 99 mmol/L (98-107); Cholesterol 169 mg/dL (200); Creatinine, Serum 1.45 mg/dL (0.70-1.30); EST Glomerular Filtration Rate 52 mL/min (>60); Est Glom Filt Rate - Afr Amer 63 mL/min (>60); Globulin 4.2 g/dL (2.2-4.2); Glucose 114 mg/dL (74-106); High Density Lipoprotein 43 mg/dL; PSA,Total - Annual Screen 2.92 ng/mL (0.00-4.00); Potassium 3.4 mmol/L (3.5-5.1); Protein, Total 8.1 g/dL (6.4-8.2); Sodium Level 136 mmol/L (136-145); Triglycerides 195 mg/dL; Very Low Density Lipoprotein 39 mg/dL (5-40)
--- NOTE | 2023-03-18 14:50 | CT_ITS ---
STUDY: CT CHEST WITHOUT CONTRAST REASON FOR EXAM: Male, 63 years old. FOLLOW UP FOR RECENT DETECTION OF PULMONARY NODULES RADIATION DOSAGE (If Supplied By Facility): CTDIvol = ( 22 ) mGy, DLP = ( 754.23 ) mGycm TECHNIQUE: Transaxial imaging was performed without the administration of intravenous contrast material. Multiplanar coronal and sagittal images were reformatted. Individualized dose optimization techniques were used for this CT. COMPARISON: Comparison is made with prior CT scan of the thorax dated August 14, 2015 and prior chest radiograph dated January 14, 2023. FINDINGS: CHEST There is a 9 mm hypodensity in the medial aspect of the left lobe of thyroid adjacent to the isthmus. There is a faint 1.3 cm triangular density in the posterior lateral aspect of the lingular segment of the left upper lobe. This may represent an area of scarring. There is no demonstrated pleural abnormality. There are calcifications of the coronary arteries. Sternal cerclage wires and vascular clips are present from a prior sternotomy and coronary artery bypass graft procedure (CABG). Normal mediastinum. Normal hilar regions. Normal unenhanced pulmonary arteries. There is atherosclerotic calcification of the aortic arch with tortuosity and elongation of the aortic arch and descending thoracic aorta. There are multi-level degenerative changes of the thoracic spine. Fatty infiltration of the liver. CT/Chest without Contrast IMPRESSION: Focal area of the increased density in the posterior-lateral aspect of the lingular segment of the left upper lobe suggestive of focal scarring. Tiny calcified granulomas. Electronically Signed: Darci Pineda MD at 13:05 EDT ,
== END | disposition home or self-care (01) ==
LOC: CT 14:48
PROVIDERS: PCP Family Medicine; Referring Provider Family Medicine; Visit Provider Family Medicine
DX: Z00.00 Encounter for general adult medical examination without abnormal findings (principal); Z12.5 Encounter for screening for malignant neoplasm of prostate; R91.8 Other nonspecific abnormal finding of lung field
CPT/HCPCS: 36415; 71250; 80053; 80061; 84153; G0103

== ENCOUNTER 2023-03-25 13:30 | Outpatient (RCR) | payer OTHER, SELFPAY ==
--- NOTE | 2023-02-20 12:50 | HP.OTEVAL ---
Patient's Visit Information Visit Information Visit Information: SUDHA WANG is a 63 year old M, referred to Occupational Therapy by Dr. Michoacano Sepulveda DO, with a diagnosis of disp fx right radius head and CMC right thumb. Date of Evaluation: 02/19/23 Occupational Therapist: Rica Naqvi, ELIU/James, CHT Subjective Subjective: This 63 year old male sustained a displaced radius head fx and a dislocation of CMC bone on R side on January 09. Pt is 4 weeks and 6 days post surgical and still has pins in hand. Pt fell playing basketball at home and went after the ball to cause this injury. Pt had a pinning on ulnar side of had to maintain metacarpal surgery on January 16 splint 1 week cast 2 weeks and have been out of cast and wrist cock up splint. Pt enjoys reading and playing basketball Pt reports he had open heart surgery on 2018. Pt is right hand dominant. ADLs Comments: unable to wear jeans and place button in hole Objective Objective/Observation: Edema is noted in hand and wrist, bruised hand ROM Elbow: right -10/125 left 0/140 Forearm: right sup 65 pron 75 left sup & pron 90* Wrist: right 55/70 left 5/12 CMC: right 35/55 left 15/45 MP: right 0/43 left +12/50 IP: right -2/15 left +15/69 Radial Abduction: right 20/45 left 25/50 Palmar Abduction: right 20/54 left 20/40 ROM Comments: MP left: IF - MF - RF +6 LF 0 right: IF + MF 0 RF +246 LF +10 PIP left: IF + MF - RF 096 LF + right: IF - MF - RF -15 LF -35/ DIP left: IF - MF - RF 0 LF 072 right: IF 049 MF + RF -8 LF - Pt demonstrates decreased right hand ROM Strength Car Oiler: right NT left 100# Lateral Pinch: right NT left 20# Tripod Pinch: right NT left 19# Strength Comments: will test right commercial project manager strength at later date Edema Wrist: R 21 cm L 19.5cm PIP: RIF 7.5cm MF 8.3cm RF 8.4 cm LF 7.3cm LIF 7.4cm MF 7cm RF 6.5cm LF 5cm Other: MCP R 24.5cm L 22 cm Quick DASH-Disab of Arm,Shoulder& Hand Quick DASH Score: 43.1800 Goals Goal:: Will not initiate strengthening until dr. mitchell- Pt will demo a right commercial project manager strength of 75# or greater to increase pts ind. with ADLs and IADLs by d.c. Goal:: Pt will demo an increase in right wrist ROM to 45/65 to return pt to PLOF with grooming, dressing and home mtg tasks by D/C. pt will demo a increase in right digits 2-5 ROM to form tight composite fist by d.c. Goal:: pt will report no pain greater than 2/10 with use of right hand with ADLs and IADLS by d.c Goal:: Pt to demo decreased overall edema in wrist/MCP joints by 2 cm to improve AROM. Goal:: Pt will be able to perform fine motor tasks with right hand IND to increase ability to ADL tasks (jeans and button up shirts). Goal:100% adherence to protocol: Yes Goal:ROM equal to unaffected hand: Yes Goal:Car Oiler/Pinch strength at least 75% of unaffected hand: Yes Goal:Full use of affected hand in daily activities including work: Yes Other Goal: Pt to demo overall increased indep in ADL/IADL tasks by decreased total DASH score by 10 points by discharge. Rehabilitation General Assessment: Pt seen for OT eval with a disp fx right radius head and CMC right thumb, pt had pins in right fifth and metacarpal bone and will have remaining pins removed nest dr. lyn. Pt demonstrates decreased ROM and strength in right hand limiting ability to ADL and IADL tasks. Pt will benefit from skilled OT for 1-2x a week for 6 weeks to increase IND in ADL and IADL tasks and has newly healing structures take place. Therapist ed in edema management and OT POC. Pt verbalizes understanding and agreeable to OT POC. Therapy session was directly supervised and doc. approved by Rica NOWAK/James,CHT. Rehabilitation Potential: Excellent Anticipated Interventions Anticipated Interventions: A/AAROM/PROM, Strengthening, Edema Control, Triggerpoint Release, Joint Protection/Energy Conservation, Ergonomic Education, Fine Motor Coord/Clint, Education re assistive Equipment, Education re Diagnosis and Home Program Visit Plan Frequency: 1-2x /Week Duration: 8 weeks TEXT: Thank you for the opportunity to evaluate your patient. For Medicare and Medicare HMO plans, please review the plan of care and approve it. It will need to be FAXED BACK to us at [phone] for Medicare purposes. Please let me know if there are questions or concerns regarding this plan of care. Physician Signature: Date:
--- NOTE | 2023-03-17 13:28 | HP.OTREVAL ---
Re-Evaluation Intro: Dr. Michoacano Sepulveda, DO, It has been my pleasure to treat SUDHA WANG over the last 8 visits for disp fx right radius head and CMC right thumb. Please see the progress note below for an update on the occupational therapy plan of care! Subjective Subjective: Pt is 8 weeks 4 days from pinning post right radius head and CMC right thumb, pt had pins in right fifth and fourth metacarpal bone and recent removal 3 weeks and 3 days Objective Objective/Function: right LF MCP 0/55 PIP -30/80 right MF MCP +5/70 PIP -10/105 right CMC 15 right MP 50 right IP 40 pt demo opposition to tip of LF pt making gains with ROM pain is less edema right RF 7.8 left 6.5 edema right LF 6.5 left 5.5 pt continues demo with good improvements with ROM and a decrease in edema Plan Plan Frequency: 1-2x /Week Duration: 8 weeks Plan: cont as tolerated Goals Goals Patient Goals: Regain Strength, Decrease Pain, Decrease Swelling/Stiffness, Use Hand/Wrist/Arm Normally Again, Increase ROM, Be More Independent in ADLS and Resume Hobbies Goal:: Will not initiate strengthening until dr. mitchell- Pt will demo a right social research assistant strength of 75# or greater to increase pts ind. with ADLs and IADLs by d.c. Goal:: Pt will demo an increase in right wrist ROM to 45/65 to return pt to PLOF with grooming, dressing and home mtg tasks by D/C. pt will demo a increase in right digits 2-5 ROM to form tight composite fist by d.c. Goal:: pt will report no pain greater than 2/10 with use of right hand with ADLs and IADLS by d.c Goal:: Pt to demo decreased overall edema in wrist/MCP joints by 2 cm to improve AROM. Goal:: Pt will be able to perform fine motor tasks with right hand IND to increase ability to ADL tasks (jeans and button up shirts). Goal:100% adherence to protocol: Yes Goal:ROM equal to unaffected hand: Yes Goal:Estate Attorney/Pinch strength at least 75% of unaffected hand: Yes Goal:Full use of affected hand in daily activities including work: Yes Other Goal: Pt to demo overall increased indep in ADL/IADL tasks by decreased total DASH score by 10 points by discharge. Anticipated Interventions Anticipated Interventions Anticipated Interventions: A/AAROM/PROM, Strengthening, Edema Control, Triggerpoint Release, Joint Protection/Energy Conservation, Ergonomic Education, Fine Motor Coord/Clint, Education re assistive Equipment, Education re Diagnosis and Home Program Re-Evaluation Ending Re-evaluation ending: Please do not hesitate to contact me at [phone] by phone or if you have questions or concerns regarding this new plan of care! Sincerely, Rica Naqvi, OTR/L, CHT
== END 2023-03-25 19:00 | disposition home or self-care (01) ==
LOC: OT 13:30
PROVIDERS: PCP Family Medicine; Visit Provider Student in an Organized Health Care Education/Training Program
DX: S52.121D Displaced fracture of head of right radius, subsequent encounter for closed fracture with routine healing (principal); S63.044D Dislocation of carpometacarpal joint of right thumb, subsequent encounter
CPT/HCPCS: 97110; 97140; 97166; 97530

== ENCOUNTER → 2023-04-15 | Outpatient (CLI) | payer OTHER, SELFPAY ==
[2023-04-15 16:10] LABS: T4 Free Direct 0.87 ng/dL (0.76-1.46); Thyroid Stim Hormone (TSH) 1.84 uIU/mL (0.358-3.74)
== END | disposition home or self-care (01) ==
LOC: LAB 15:00
PROVIDERS: PCP Family Medicine; Visit Provider Family Medicine
DX: E04.1 Nontoxic single thyroid nodule (principal)
CPT/HCPCS: 36415; 84439; 84443

== ENCOUNTER → 2023-04-15 | Outpatient (CLI) | payer OTHER, SELFPAY ==
--- NOTE | 2023-04-15 14:19 | US_ITS ---
STUDY: THYROID ULTRASOUND REASON FOR EXAM: Male, 63 years old. Nontoxic single thyroid nodule on CT TECHNIQUE: Ultrasound evaluation of the thyroid was performed with real-time and static srivastava-scale imaging. COMPARISON: None. FINDINGS: RIGHT LOBE: The right lobe of the thyroid gland measures 4.6 x 1.7 x 1.8 cm. There are 1 or 2 tiny low attenuating cystic structures. There is one measuring 2 mm within the right thyroid. There is a mostly homogeneous echotexture. There is a tiny cystic structure right tyroid measuring 2.0 mm. LEFT LOBE: The left lobe of the thyroid gland measures 5.2 x 1.7 x 1.1 cm. There is a there is a wider than tall mixed echogenicity nodule measuring 1.2 x 1.0 x 0.7 cm.. There are no demonstrated solid, cystic or complex lesions. ISTHMUS: The isthmus measures 3.9 mm . The regional lymph nodes are normal. US/Thyroid IMPRESSION: Focal single nodule within the left thyroid recommend, measuring 1.3 x 1.7 x 1.0 cm. TR 3. Recommend follow-up in 12 months to ensure stability. Mild thyroid enlargement. Benign-appearing cyst right thyroid which show further workup is suggested. Electronically Signed: Mi Redding MD at 5:58 EDT ,
== END | disposition home or self-care (01) ==
LOC: US 14:18
PROVIDERS: PCP Family Medicine; Referring Provider Family Medicine; Visit Provider Family Medicine
DX: E04.1 Nontoxic single thyroid nodule (principal)
CPT/HCPCS: 76536

== ENCOUNTER → 2023-09-02 | Outpatient (CLI) | payer OTHER, SELFPAY | END | disposition home or self-care (01) | LOC: BFHLAB 15:47 → LABSPEC 15:47 | PROVIDERS: PCP Family Medicine; Visit Provider Family Medicine | DX: R35.0 Frequency of micturition (principal) | CPT/HCPCS: 87086 ==

== ENCOUNTER → 2023-09-09 | Outpatient (CLI) | payer OTHER, SELFPAY ==
[2023-09-09 19:05] LABS: Anion Gap 9 (5-15); BUN 19 mg/dL (7-18); BUN/Creat Ratio 11.2 RATIO (10-20); Calcium,Total 8.7 mg/dL (8.5-10.1); Chloride 103 mmol/L (98-107); Creatinine, Serum 1.69 mg/dL (0.70-1.30); EST Glomerular Filtration Rate 44 mL/min (>60); Est Glom Filt Rate - Afr Amer 53 mL/min (>60); Glucose 81 mg/dL (74-106); Potassium 3.9 mmol/L (3.5-5.1); Sodium Level 137 mmol/L (136-145)
== END | disposition home or self-care (01) ==
LOC: LAB 15:49
PROVIDERS: PCP Family Medicine; Referring Provider Internal Medicine Cardiovascular Disease; Visit Provider Internal Medicine Cardiovascular Disease
DX: Z95.1 Presence of aortocoronary bypass graft (principal)
CPT/HCPCS: 36415; 80048

== ENCOUNTER → 2023-09-22 | Outpatient (CLI) | payer OTHER, SELFPAY ==
[2023-09-22 12:05] LABS: Anion Gap 8 (5-15); BUN 13 mg/dL (7-18); BUN/Creat Ratio 10.9 RATIO (10-20); Calcium,Total 9.1 mg/dL (8.5-10.1); Chloride 103 mmol/L (98-107); Creatinine, Serum 1.19 mg/dL (0.70-1.30); EST Glomerular Filtration Rate 65 mL/min (>60); Est Glom Filt Rate - Afr Amer 79 mL/min (>60); Glucose 119 mg/dL (74-106); Potassium 3.4 mmol/L (3.5-5.1); Sodium Level 138 mmol/L (136-145)
== END | disposition home or self-care (01) ==
PROVIDERS: PCP Family Medicine; Referring Provider Nurse Practitioner Gerontology; Visit Provider Nurse Practitioner Gerontology
DX: N39.0 Urinary tract infection, site not specified (principal); N18.31 Chronic kidney disease, stage 3a
CPT/HCPCS: 36415; 80048; 87086

== ENCOUNTER → 2023-10-07 | Outpatient (CLI) | payer OTHER, SELFPAY ==
--- NOTE | 2023-10-07 | FLU_PTH ---
PATIENT: SUDHA WANG LOC: [facility] U#:[id number] AGE/SX: 63/M ROOM: RE10/07/[address]: Dr. Jason Moore DPM : 1960 BED: DIS: 10/07/2023 SPEC #: [id number] RECD: 10/08/23 08:28 STATUS: ROSAMARIA REJef #: [id number] LETI: 10/07/23 00:[address]: Jason Moore DEPT: CYTOLOGY RECD BY: Francisco Vicente ENTERED: 10/08/23 08:28 SP TYPE: Fluid OTHR DR: Dr. Guanakito Wynn, DO Tissues: Toe, NOS Procedures: Special Stain Group II Surgery Specimen Level IV Cytospin Fluid HEADER OPERATION: Not noted PRE-OP DIAGNOSIS: Gout right foot TISSUE SUBMITTED: Right foot- toe DIAGNOSIS CYTOLOGY Right foot- toe fluid (cellblock): Consistent with gouty tophi. See comment. YVETTE/ 10/09/23 COMMENT The specimen is evaluated at the time of gross by Dr. Montgomery. Immediate Evaluation = Numerous monosodium urate crystals (uric acid) are noted. The results of crystal examination are reported to Dr. Moore's office on 10/08/23. CYTOLOGY STUDY Slides are reviewed. CYTOLOGY GROSS Received is 0.25 ml of red cloudy fluid labeled with the patient's name and and designated per the requisition as Right foot- toe, submitted for cell block preparation. One smear is also prepared for crystal examination. mr 10/08/23 TC:5 CPT: 21034, 21536
[2023-10-07 18:40] LABS: Cytology, Body Fluid / CSF SEE PATHOLOGY REPORT
[2023-10-07 20:43] LABS: M R Staph aureus DNA By PCR Negative (Negative); Probe Check PASS; Specimen Processing Control PASS; Staph aureus DNA By PCR NEGATIVE (Negative)
== END | disposition home or self-care (01) ==
PROVIDERS: PCP Family Medicine; Visit Provider Podiatrist
DX: M10.9 Gout, unspecified (principal)
CPT/HCPCS: 87070; 87075; 87205; 87640; 88108; 88305; 88313; 89060

== ENCOUNTER → 2024-03-23 | Outpatient (CLI) | payer OTHER, SELFPAY ==
[2024-03-23 12:16] LABS: Color, Urine Yellow (Yellow); Glucose, Dipstick Normal (Normal); Ketone-Dipstick Negative (Negative); Leukocyte Esterase-Dipstick Negative /ul (Negative); Nitrite-Dipstick Negative (Negative); Occult Blood-Urine Negative /ul (Negative); Protein-Dipstick Negative (Negative); Urine Bilirubin Dipstick Negative (Negative); Urine Clarity Clear (Clear); Urine Urobilinogen Normal (Normal)
[2024-03-23 12:29] LABS: Absolute Lymphocyte Count 1.74 X10^3/uL (0.83-4.51); Absolute Neutrophil Count 6.8 X10^3/uL (2.0-7.7); Basophil# 0.06 X10^3/uL; Basophil% 0.6 % (0-1); Eosinophil# 0.19 X10^3/uL; Hematocrit 41.7 % (40-54); Hemoglobin 13.8 g/dL (13.0-16.5); Lymphocyte # 1.74 X10^3/ul (0.83-4.51); Lymphocyte % 18.2 % (19-41); Mean Corp Hgb Conc 33.1 g/dL (32-36); Mean Corpuscular Hgb 28.2 pg (27.0-32.0); Mean Corpuscular Volume 85.1 fL (80-94); Mean Platelet Vol. 11.8 fl (6.2-12.0); Monocyte# 0.76 X10^3/uL; NRBC Flagged by Analyzer 0 % (0-5); Neutrophil # 6.77 X10^3/uL (2.7-7.7); Platelet Count 217 K/mm3 (150-450); RBC Distribution Width CV 13.7 % (11.6-14.6); RBC Distribution Width SD 42.3 fl (35.1-43.9); White Blood Count 9.5 K/mm3 (4.4-11.0)
[2024-03-23 12:47] LABS: ALB/GLOB Ratio 0.9 RATIO (0.9-2.4); AST(SGOT) 23 U/L (15-37); Alanine Aminotransfer ALT/SGPT 32 U/L (16-61); Albumin, Serum 3.8 g/dL (3.2-5.0); Alkaline Phosphatase 68 U/L (45-117); Anion Gap 5 (5-15); BUN 17 mg/dL (7-18); BUN/Creat Ratio 14.8 RATIO (10-20); Calcium,Total 9.1 mg/dL (8.5-10.1); Chloride 103 mmol/L (98-107); Cholesterol 153 mg/dL (200); Creatinine, Serum 1.15 mg/dL (0.70-1.30); EST Glomerular Filtration Rate 68 mL/min (>60); Est Glom Filt Rate - Afr Amer 82 mL/min (>60); Globulin 4.1 g/dL (2.2-4.2); Glucose 106 mg/dL (74-106); High Density Lipoprotein 42 mg/dL; PSA,Total - Annual Screen 3.05 ng/mL (0.00-4.00); Potassium 3.6 mmol/L (3.5-5.1); Protein, Total 7.9 g/dL (6.4-8.2); Sodium Level 135 mmol/L (136-145); Triglycerides 182 mg/dL; Uric Acid 7.4 mg/dL (3.5-7.2); Very Low Density Lipoprotein 36 mg/dL (5-40)
== END | disposition home or self-care (01) ==
PROVIDERS: PCP Family Medicine; Referring Provider Family Medicine; Visit Provider Family Medicine
DX: I25.10 Atherosclerotic heart disease of native coronary artery without angina pectoris (principal); I10 Essential (primary) hypertension; E78.5 Hyperlipidemia, unspecified; M10.9 Gout, unspecified; Z12.5 Encounter for screening for malignant neoplasm of prostate
CPT/HCPCS: 36415; 80053; 80061; 81002; 84153; 84550; 85025; G0103

== ENCOUNTER → 2024-05-18 | Outpatient (CLI) | payer MEDICARE, SELFPAY ==
--- NOTE | 2024-05-18 10:54 | VDLE_ITS ---
Reason For Study: LLE PAIN RIGHT LEFT CFV is compressible, spontaneous, phasic, CFV is compressible, spontaneous, phasic, competent and demonstrates normal competent, and demonstrates normal augmentation. augmentation. Procedure FV is compressible, spontaneous, phasic, This is a venous duplex using B-mode, color competent and demonstrates normal flow and spectral Doppler. augmentation. Exam performed in department. POP V is compressible, spontaneous, phasic, A preliminary report was called and/or faxed competent and demonstrates normal to Dr. Moore @ [phone] Wynn augmentation. @ [phone] @ 11:20. T/P Trunk is compressible. PTV is compressible. LT PerV is compressible. GSV harvested. VL/Venous Duplex US, Unilateral Interpretation Summary Deep veins of the left lower extremity are patent and compressible segmentally. There is no evidence of left lower extremity deep vein thrombosis. Valvular competence appears intac t within the proximal deep venous system on the left . The left great saphenous vein is absent, havin g been previously harvested. The right common femoral vein is patent and compressible . Ordering Physician: Jason Moore Referring Physician: Guanakito Wynn Performed By: Jordana Payne, KARUNA, RVT
== END | disposition home or self-care (01) ==
LOC: CVS 10:51
PROVIDERS: PCP Family Medicine; Referring Provider Podiatrist; Visit Provider Podiatrist
DX: M79.662 Pain in left lower leg (principal)
CPT/HCPCS: 93971

== ENCOUNTER → 2024-05-31 | Outpatient (CLI) | payer MEDICARE, SELFPAY ==
--- NOTE | 2024-05-31 12:50 | US_ITS ---
EXAM: US SOFT TISSUES HEAD AND NECK, THYROID CLINICAL INDICATION: RECHECK NODULE TECHNIQUE: Greyscale and color doppler imaging was performed of the thyroid gland. COMPARISON: 04/15/2023. FINDINGS: LEFT THYROID LOBE: The left thyroid lobe measures 4.2 x 1.8 x 1.5 cm. There is a 1.4 x 1.0 x 0.8 cm nodule in the left thyroid lobe which is essentially unchanged compared to the prior examination . This nodule is solid or almost completely solid, hyperechoic or isoechoic, [id number], smoothly marginated and contains no echogenic foci. TI-RADS points: 3. RIGHT THYROID LOBE: The right thyroid lobe measures 4.3 x 2.0 x 1.6 cm. There is a spongiform nodule measuring 4 mm in the right thyroid lobe. TI-RADS points: 0. TI-RADS category: TR1. This nodule is benign and no FNA or follow-up is necessary. Homogeneous echotexture with normal vascularity. ISTHMUS: The thyroid isthmus measures 0.6 cm. No thyroid nodules are present. US/Thyroid IMPRESSION: There is a 1.4 x 1.0 x 0.8 cm nodule in the left thyroid lobe which is essentially unchanged compared to the prior examination. This nodule is solid or almost completely solid, hyperechoic or isoechoic, [id number], smoothly marginated and contains no echogenic foci. TI-RADS points: 3. TI-RADS category: TR3. This nodule is mildly suspicious but no FNA or follow-up is necessary given the small size of this nodule. Electronically Signed: Salvador Edmonds DO at 23:26 EST ,
== END | disposition home or self-care (01) ==
LOC: US 12:49
PROVIDERS: PCP Family Medicine; Referring Provider Family Medicine; Visit Provider Family Medicine
DX: E04.1 Nontoxic single thyroid nodule (principal)
CPT/HCPCS: 76536

== ENCOUNTER → 2024-10-19 | Outpatient (CLI) | payer MEDICARE, SELFPAY ==
--- NOTE | 2024-10-19 11:15 | RAD_ITS ---
EXAM: XR Chest, 2 Views CLINICAL INDICATION: COUGH TECHNIQUE: Frontal and lateral views of the chest. COMPARISON: No relevant prior studies available. FINDINGS: LUNGS AND PLEURAL SPACES: Patchy airspace disease of the right lung, likely multifocal pneumonia. No pneumothorax. HEART: Unremarkable. No cardiomegaly. MEDIASTINUM: Unremarkable. Normal mediastinal contour. BONES/JOINTS: Unremarkable. No acute fracture. RAD/Chest PA and Lateral IMPRESSION: Patchy airspace disease of the right lung, likely multifocal pneumonia. [facility]
== END | disposition home or self-care (01) ==
LOC: MTRAD 11:15
PROVIDERS: PCP Family Medicine; Referring Provider Physician Assistant; Visit Provider Physician Assistant
DX: R05.9 Cough, unspecified (principal)
CPT/HCPCS: 71046

== ENCOUNTER → 2025-03-14 | Outpatient (CLI) | payer MEDICARE, SELFPAY ==
[2025-03-14 11:45] LABS: AST(SGOT) 30 U/L (<=37); Alanine Aminotransfer ALT/SGPT 31 U/L (<=46); Albumin, Serum 4.3 g/dL (3.4-4.8); Alkaline Phosphatase 67 U/L (40-129); Bilirubin, Direct 0.29 mg/dL (0.00-0.30); Cholesterol 152 mg/dL (<=200); Globulin 3.2 g/dL (2.2-4.2); Low Density Lipoprotein Calc. 72 mg/dL; Triglycerides 203 mg/dL; Very Low Density Lipoprotein 41 mg/dL (5-40); cholesterol:hdl ratio screen 3.86
== END | disposition home or self-care (01) ==
LOC: LAB 10:14
PROVIDERS: PCP Family Medicine; Referring Provider Nurse Practitioner Gerontology; Visit Provider Nurse Practitioner Gerontology
DX: I25.10 Atherosclerotic heart disease of native coronary artery without angina pectoris (principal)
CPT/HCPCS: 36415; 80061; 80076

== ENCOUNTER → 2025-03-25 | Outpatient (CLI) | payer MEDICARE, SELFPAY ==
[2025-03-25 11:09] LABS: Hematocrit 42.7 % (40-54); Hemoglobin 14.8 g/dL (13.0-16.5); Immature Granulocytes Count 0.050 X10^3/uL (0.0-0.0); Mean Corp Hgb Conc 34.7 g/dL (32-36); Mean Corpuscular Volume 86.4 fL (80-94); Mean Platelet Vol. 10.9 fl (6.2-12.0); NRBC Flagged by Analyzer 0 % (0-5); Platelet Count 255 K/mm3 (150-450); RBC Distribution Width CV 13.1 % (11.6-14.6); RBC Distribution Width SD 40.4 fl (35.1-43.9); Red Blood Count 4.94 M/mm3 (4.6-6.2); White Blood Count 9.7 K/mm3 (4.4-11.0)
[2025-03-25 11:49] LABS: AST(SGOT) 31 U/L (<=37); Alanine Aminotransfer ALT/SGPT 30 U/L (<=46); Albumin, Serum 4.4 g/dL (3.4-4.8); Alkaline Phosphatase 73 U/L (40-129); Anion Gap 13 (5-15); BUN 18 mg/dL (4-19); BUN/Creat Ratio 15.3 RATIO (10-20); Calcium,Total 9.4 mg/dL (7.6-11.0); Carbon Dioxide 24.9 mmol/L (21.0-32.0); Chloride 99 mmol/L (98-108); Cholesterol 154 mg/dL (<=200); Globulin 3.2 g/dL (2.2-4.2); Glucose 108 mg/dL (70-99); Low Density Lipoprotein Calc. 75 mg/dL; Potassium 3.7 mmol/L (3.3-5.1); Triglycerides 182 mg/dL; Uric Acid 7.8 mg/dL (3.5-7.2); Very Low Density Lipoprotein 36 mg/dL (5-40); cholesterol:hdl ratio screen 3.58
[2025-03-25 12:23] LABS: PSA,Total - Annual Screen 3.25 ng/mL (0.02-4.00); Vitamin B12 713 pg/mL (180-914); Vitamin D,25 Hydroxy 24.4 ng/mL (30-100)
[2025-03-25 14:20] LABS: Color, Urine Yellow (Yellow); Glucose, Dipstick Normal (Normal); Ketone-Dipstick Negative (Negative); Leukocyte Esterase-Dipstick Negative /ul (Negative); Nitrite-Dipstick Negative (Negative); Occult Blood-Urine Negative /ul (Negative); Protein-Dipstick Negative (Negative); Specific Gravity, Urine 1.010 (1.002-1.030); Urine Bilirubin Dipstick Negative (Negative)
[2025-03-30 12:08] LABS: Testosterone, % Free 2.39 % (1.50-4.20); Testosterone, Free 5.59 ng/dL (5.00-21.00)
== END | disposition home or self-care (01) ==
LOC: LAB 10:38
PROVIDERS: PCP Family Medicine; Referring Provider Family Medicine; Visit Provider Family Medicine
DX: I25.10 Atherosclerotic heart disease of native coronary artery without angina pectoris (principal); R53.83 Other fatigue; Z12.5 Encounter for screening for malignant neoplasm of prostate; E55.9 Vitamin D deficiency, unspecified; I10 Essential (primary) hypertension; E78.5 Hyperlipidemia, unspecified; M10.9 Gout, unspecified; E04.1 Nontoxic single thyroid nodule
CPT/HCPCS: 36415; 80053; 80061; 81002; 82306; 82607; 84153; 84402; 84403; 84443; 84550; 85025; G0103

== ENCOUNTER → 2025-04-08 | Outpatient (CLI) | payer MEDICARE, SELFPAY ==
--- NOTE | 2025-04-08 06:33 | ECHOD_ITS ---
Reason For Study Reason For Study: CORONARY ARTERY DISEASE Procedure This was a 2D Doppler, Color Flow transthoracic echocardiogram. Contrast injection was performed. Exam performed in department. Left Ventricle Normal LV size. Left ventricular systolic function is normal. The left ventricular ejection fraction is 55 %. No regional wall motion abnormalities noted. Right Ventricle Normal RV size. Normal systolic function. Atria The left atrium is moderately enlarged. Normal right atrium. Mitral Valve Normal mitral valve. Mild (1+) anteriorly directed mitral valve insufficiency. Tricuspid Valve Normal tricuspid valve. Mild (1+) tricuspid valve insufficiency. Pulmonary artery systolic pressure is 28 mmHg. Aortic Valve Trisinus/trileaflet aortic valve. Mild focal aortic valve calcification. Pulmonic Valve The pulmonic valve is not well visualized. Great Vessels Normal aortic root. The pulmonary artery is normal size. Inferior vena cava collapse with respiration. Pericardium/Pleural No pericardial effusion. Medication 22 gauge I.V. with prn adaptor inserted into left arm. Diluted definity 2.5ml given slow IV push to enhance endocardial definition. MMode/2D Measurements & Calculations LVIDd: 5.2 cm IVSd: 1.1 cm LVOT diam: 2.0 cm LVIDs: 3.7 cm LVPWd: 0.98 cm RVDd: 4.3 cm FS: 30.0 % LVOT area: 3.2 cm2 Ao root diam: 4.3 cm asc Aorta Diam: 4.3 cm LAV(MOD- bp): 97.9 ml LAV(MOD- bp) Indexed: 37.4 ml/m2 LAV(MOD- sp2): 97.7 ml LAV(MOD- sp4): 98.5 ml SV(MOD- sp4): 92.6 ml LVAd ap4: 46.2 cm2 LVAd ap2: 42.4 cm2 LVLd ap4: 9.0 cm LVLd ap2: 9.0 cm SI(MOD- sp4): 35.3 ml/m2 EDV(MOD-sp4): 191.4 ml EDV(MOD-sp2): 162.4 ml EDV(sp4-el): 200.7 ml EDV(sp2-el): 169.1 ml LVAs ap4: 30.6 cm2 LVAs ap2: 27.5 cm2 LVLs ap4: 7.8 cm LVLs ap2: 8.0 cm ESV(MOD-sp4): 98.8 ml ESV(MOD-sp2): 79.8 ml ESV(sp4-el): 101.7 ml ESV(sp2-el): 80.4 ml EF(MOD-sp4): 48.4 % EF(MOD-sp2): 50.9 % EF(sp4-el): 49.3 % SV(MOD-sp2): 82.6 ml SV(sp4-el): 99.0 ml Ao sinus diam: 3.6 cm SI(MOD-sp2): 31.5 ml/m2 Ao ST Junction: 2.6 cm LA dimension(2D): 5.0 cm LA A4 area: 28.1 cm2 RA A4 area: 16.7 cm2 TAPSE: 1.9 cm Time Measurements MV dec time: 0.19 sec Doppler Measurements & Calculations MV E max jordy: 105.0 cm/sec Lat Peak E' Jordy: 14.3 cm/sec Med Peak E' Jordy: 9.4 cm/sec MV A max jordy: 66.5 cm/sec E/E' lat: 7.3 E/E' med: 11.2 MV E/A: 1.6 Ao V2 max: 162.1 cm/sec LV V1 max: 96.6 cm/sec MV dec slope: 562.5 cm/sec2 Ao max P.5 mmHg LV V1 max P.7 mmHg Ao V2 mean: 119.3 cm/sec LV V1 mean P.3 mmHg Ao mean P.2 mmHg LV V1 mean: 71.9 cm/sec Ao V2 VTI: 37.8 cm LV V1 VTI: 25.0 cm AV (velocity ratio): 0.66 YOLI(I,D): 2.1 cm2 YOLI(V,D): 1.9 cm2 SV(LVOT): 80.3 ml PA V2 max: 110.7 cm/sec TR max jordy: 244.3 cm/sec TR max P.9 mmHg ECHO/Echo Complete W/ Contrast Interpretation Summary Normal LV size. Left ventricular systolic function is normal. The left ventricular ejection fraction is 55 %. The left atrium is moderately enlarged. Pulmonary artery systolic pressure is 28 mmHg. Contrast injection was performed. Ordering Physician: Floridalma Velazquez Referring Physician: NADEEM LORA Performed By: Yanni Donahue RDCS
--- NOTE | 2025-04-08 12:37 | STRESSREP ---
Stress Test Report Pharmacologic myocardial perfusion stress test. 65-year-old man with a history of coronary disease status post coronary bypass surgery. Resting EKG demonstrates sinus bradycardia with a rate of 55 bpm. Resting blood pressure is 130/88 mmHg. 0.4 mg of regadenoson was infused per usual protocol followed by rapid intravenous saline flush injection. Continuous EKG monitoring was performed. The maximum heart rate was 74 bpm which was 48% of max impacted heart rate the maximum workload was 1 metabolic equivalent. At rest there were no ST or T wave changes noted to suggest ischemia and at peak infusion nonspecific ST changes were noted which did not meet the criteria for ischemia. No clinical angina is noted. The final blood pressure was 130/76 mmHg. Myocardial perfusion protocol. 15 mCi of technetium 99m sestamibi was injected at rest. 0.4 mg of regadenoson was infused per usual protocol. At peak infusion 44.6 mCi of technetium 99m sestamibi was injected stress images were obtained stress and rest images were reconstructed and compared in the short axis vertical long and horizontal long axis. Gated images were also obtained. Perfusion SPECT analysis: Review of the stress images demonstrate normal uptake of tracer noted in all areas of the myocardium. The resting images similar demonstrated normal uptake of tracer noted in all areas of the myocardium. No areas of reversibility are noted to suggest ischemia and no previous infarct is noted. Gated SPECT analysis: The gated ejection fraction is 64%. Conclusion: Normal pharmacologic myocardial perfusion stress test. Preserved ejection fraction.
== END | disposition home or self-care (01) ==
LOC: CVS 06:33
PROVIDERS: PCP Family Medicine; Referring Provider Nurse Practitioner Gerontology; Visit Provider Nurse Practitioner Gerontology
DX: I25.10 Atherosclerotic heart disease of native coronary artery without angina pectoris (principal); Z95.1 Presence of aortocoronary bypass graft
CPT/HCPCS: 78452; 93017; 93306; A9500; Q9957; A4216; C8929; J2785